=== PATIENT | female | born 1965 | race Caucasian/White ===

== ENCOUNTER 2020-04-19 21:33 | Observation (INO) | payer OTHER ==
[2020-04-19] MEDS ORDERED: NA CHLORIDE 0.9% 1,000 ML ONE (22:22)
[2020-04-19] MEDS ORDERED: ONDANSETRON 4 MG/2 ML VIAL ONE (22:29)
--- NOTE | 2020-04-19 22:44 | RAD REPORT ---
EXAM DESCRIPTION: Afsaneh Single View04/19/2020 10:38 pm CLINICAL HISTORY: cough COMPARISON: 2017 FINDINGS: The lungs appear clear of acute infiltrate. The heart is normal size IMPRESSION: No acute abnormalities displayed
[2020-04-19 22:47] LABS: Absolute Lymphocytes (CBC) 3.6 K/uL (0.7-4.9); Basophils % 0.6 % (0-1.3); Hematocrit 39.3 % (36.0-45.0); Lymphocytes % 19.9 % (15.3-44.8); MPV 7.9 fL (7.6-11.3); Protime INR 0.96; RBC Red Blood Cell Count 4.07 M/uL (3.86-4.86)
[2020-04-19 23:03] LABS: ALT/SGPT 25 U/L (12-78); AST/SGOT 18 U/L (15-37); Albumin 3.5 g/dL (3.4-5.0); Alkaline Phosphatase 52 U/L (45-117); BUN Blood Urea Nitrogen 13 mg/dL (7-18); Bicarbonate 27 mmol/L (21-32); Bilirubin Direct < 0.1 mg/dL (0-0.2); Bilirubin Total 0.2 mg/dL (0.2-1.0); Glucose Level 109 mg/dL (74-106); Magnesium 1.7 mg/dL (1.8-2.4); NT PRO-BNP 53 pg/mL (<125); Potassium 3.6 mmol/L (3.5-5.1); Sodium Level 144 mmol/L (136-145); Troponin (Emerg Dept Use Only) < 0.02 ng/mL (0.0-0.045)
[2020-04-19 23:52] LABS: Urine Blood NEGATIVE (NEG); Urine Glucose NEGATIVE (NEG); Urine Protein 1+ (NEG); Urine Specific Gravity 1.025 (1.005-1.030); Urine pH 5.5 (5.0-7.0)
--- NOTE | 2020-04-20 00:09 | EDPHYS ---
Physician Documentation [facility] Name: Mariela Hayes Age: 54 yrs Sex: Female : 1965 Arrival Date: 04/19/2020 Time: 21:51 Bed 13 Private MD: JESSICA Physician Mohan Benito HPI: 04/19 22:45 This 54 yrs old Female presents to ER via EMS with complaints of Dizziness, maribell Weakness. 22:45 The patient presents with dizziness, generalized weakness. Onset: The symptoms/episode maribell began/occurred just prior to arrival. Context: occurred at home. Modifying factors: The symptoms are alleviated by nothing, the symptoms are aggravated by nothing. Associated signs and symptoms: The patient has no apparent associated signs or symptoms. Severity of symptoms: At their worst the symptoms were mild moderate in the emergency department the symptoms are unchanged. Patient's baseline: Neuro: alert and fully oriented. The patient has not experienced similar symptoms in the past. 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 bb Historical: - Allergies: 22:00 Phenergan; bb - Home Meds: 22:00 Ambien 10 mg Oral tab 1 tab once daily [Active]; carvedilol 25 mg oral tab 1 tab 2 bb times per day [Active]; memantine 10 mg oral tab 1 tab 2 times per day [Active]; donepezil 10 mg oral tab 1 tab twice a day [Active]; duloxetine 60 mg oral cpDR 2 caps once daily [Active]; lisinopril 20 mg Oral tab 1 tab twice a day [Active]; hydrocodone-acetaminophen 10-325 mg Oral tab 1 tab three times a day [Active]; D3 [Active]; B12 [Active]; Melatonin Oral [Active]; Aspirin Oral [Active]; hydralazine 50 mg Oral tab 1 tab 2 times per day [Active]; - PMHx: 22:00 Hypertension; Chronic pain; Alzheimers; bb - PSHx: 22:00 Hernia repair; Tonsillectomy; nerve stimulator spinal cord x 2; foot; D\T\C; bb - Immunization history:: Adult Immunizations up to date. - Social history:: Smoking status: Patient reports the use of cigarette tobacco products, smokes one pack cigarettes per day. Patient/guardian denies using alcohol, street drugs. - Family history:: not pertinent. ROS: 22:45 Constitutional: Negative for fever, chills, and weight loss, Eyes: Negative for injury, maribell pain, redness, and discharge, ENT: Negative for injury, pain, and discharge, Neck: Negative for injury, pain, and swelling, Cardiovascular: Negative for chest pain, palpitations, and edema, Respiratory: Negative for shortness of breath, cough, wheezing, and pleuritic chest pain, Abdomen/GI: Negative for abdominal pain, nausea, vomiting, diarrhea, and constipation, Back: Negative for injury and pain, : Negative for injury, bleeding, discharge, and swelling, MS/Extremity: Negative for injury and deformity, Skin: Negative for injury, rash, and discoloration, Psych: Negative for depression, anxiety, suicide ideation, homicidal ideation, and hallucinations, Allergy/Immunology: Negative for hives, rash, and allergies, Endocrine: Negative for neck swelling, polydipsia, polyuria, polyphagia, and marked weight changes, Hematologic/Lymphatic: Negative for swollen nodes, abnormal bleeding, and unusual bruising. 22:45 Neuro: Positive for dizziness. Exam: 22:45 Constitutional: This is a well developed, well nourished patient who is awake, alert, maribell and in no acute distress. Head/Face: Normocephalic, atraumatic. Eyes: Pupils equal round and reactive to light, extra-ocular motions intact. Lids and lashes normal. Conjunctiva and sclera are non-icteric and not injected. Cornea within normal limits. Periorbital areas with no swelling, redness, or edema. ENT: Nares patent. No nasal discharge, no septal abnormalities noted. Tympanic membranes are normal and external auditory canals are clear. Oropharynx with no redness, swelling, or masses, exudates, or evidence of obstruction, uvula midline. Mucous membranes moist. Neck: Trachea midline, no thyromegaly or masses palpated, and no cervical lymphadenopathy. Supple, full range of motion without nuchal rigidity, or vertebral point tenderness. No Meningismus. Chest/axilla: Normal chest wall appearance and motion. Nontender with no deformity. No lesions are appreciated. Cardiovascular: Regular rate and rhythm with a normal S1 and S2. No gallops, murmurs, or rubs. Normal PMI, no JVD. No pulse deficits. Respiratory: Lungs have equal breath sounds bilaterally, clear to auscultation and percussion. No rales, rhonchi or wheezes noted. No increased work of breathing, no retractions or nasal flaring. Abdomen/GI: Soft, non-tender, with normal bowel sounds. No distension or tympany. No guarding or rebound. No evidence of tenderness throughout. Back: No spinal tenderness. No costovertebral tenderness. Full range of motion. Female : Normal external genitalia. Skin: Warm, dry with normal turgor. Normal color with no rashes, no lesions, and no evidence of cellulitis. MS/ Extremity: Pulses equal, no cyanosis. Neurovascular intact. Full, normal range of motion. Neuro: Awake and alert, GCS 15, oriented to person, place, time, and situation. Cranial nerves II-XII grossly intact. Motor strength 5/5 in all extremities. Sensory grossly intact. Cerebellar exam normal. Normal gait. Psych: Awake, alert, with orientation to person, place and time. Behavior, mood, and affect are within normal limits. 22:45 Musculoskeletal/extremity: Extremities: all appear grossly normal, with no appreciated pain with palpation, DVT Exam: No signs of deep vein thrombosis. no pain, no swelling, no tenderness, negative Homans' sign noted on exam, no appreciated bluish discoloration, no erythema, no increased warmth. 22:48 ECG was reviewed by the Attending Physician. maribell Vital Signs: 21:52 BP 159 / 84; Pulse 64; Resp 16 S; Pulse Ox 100% on R/A; Weight 95.25 kg (R); Height 5 bb ft. 4 in. (162.56 cm) (R); 23:07 BP 141 / 65; Pulse 64; Resp 17 S; Pulse Ox 98% on R/A; jd3 04/20 01:14 BP 144 / 71; Pulse 78; Resp 18; Pulse Ox 97% on R/A; wh 04/19 21:52 Body Mass Index 36.05 (95.25 kg, 162.56 cm) bb MDM: 04/19 21:59 Patient medically screened. maribell 22:47 Differential diagnosis: cardiac arrhythmia, CVA, generalized weakness, hypovolemia, maribell idiopathic dizziness, near-syncope, , TIA, vertigo. Data reviewed: vital signs, nurses notes, lab test result(s), EKG, radiologic studies, CT scan, plain films. Data interpreted: bus monitor: rate is 64 beats/min, rhythm is regular, Pulse oximetry: on room air is 100 %. Test interpretation: by ED physician or midlevel provider: ECG, plain radiologic studies. Counseling: I had a detailed discussion with the patient and/or guardian regarding: the historical points, exam findings, and any diagnostic results supporting the discharge/admit diagnosis, lab results, radiology results. 04/19 22:00 Order name: Basic Metabolic Panel; Complete Time: 23:35 [facility] 04/19 22:00 Order name: CBC with Diff; Complete Time: 23:35 [facility] 04/19 22:00 Order name: LFT's; Complete Time: 23:35 [facility] 04/19 22:00 Order name: Magnesium; Complete Time: 23:35 [facility] 04/19 22:00 Order name: NT PRO-BNP; Complete Time: 23:35 [facility] 04/19 22:00 Order name: PT-INR; Complete Time: 23:35 [facility] 04/19 22:00 Order name: Troponin (emerg Dept Use Only); Complete Time: 23:35 [facility] 04/19 23:39 Order name: COVID-19 [facility] 04/19 23:39 Order name: Influenza Screen (a \T\ B) [facility] 04/19 23:39 Order name: Blood Culture Adult (2) [facility] 04/19 23:39 Order name: Procalcitonin [facility] 04/19 23:39 Order name: [facility] 04/19 23:41 Order name: Urine Dipstick--Ancillary (enter results); Complete Time: 00:06 [facility] 04/19 23:41 Order name: Urine --Ancillary (enter results); Complete Time: 00:06 [facility] 04/19 22:00 Order name: XRAY Chest (1 view); Complete Time: 23:35 [facility] 04/19 22:00 Order name: EKG; Complete Time: 22:01 [facility] 04/19 22:00 Order name: Cardiac monitoring; Complete Time: 22:08 [facility] 04/19 22:00 Order name: EKG - Nurse/Tech; Complete Time: 22:15 [facility] 04/19 22:00 Order name: IV Saline Lock; Complete Time: 22:09 [facility] 04/19 22:00 Order name: Labs collected and sent; Complete Time: 22:37 [facility] 04/19 22:00 Order name: O2 Per Protocol; Complete Time: 22:08 [facility] 04/19 22:00 Order name: O2 Sat Monitoring; Complete Time: 22:08 [facility] 04/19 22:00 Order name: Urine Dipstick-Ancillary (obtain specimen); Complete Time: 22:37 [facility] 04/19 22:00 Order name: CT Head Brain wo Cont [facility] 04/19 23:43 Order name: Lactate [facility] 04/19 22:00 Order name: Urine Test (obtain specimen); Complete Time: 22:37 [facility] EC:48 Rate is 62 beats/min. Rhythm is regular. QRS [place] is Normal. MS interval is normal. QRS maribell interval is normal. QT interval is normal. No Q waves. T waves are Normal. No ST changes noted. Clinical impression: NSR w/ Non-specific ST/T Changes and No evidence of ischemia. Interpreted by me. Reviewed by me. Administered Medications: 22:15 Drug: NS 0.9% 1000 ml Route: IV; Rate: 1 bolus; Site: left antecubital; [facility] 04/20 01:12 Follow up: Response: No adverse reaction; IV Status: Completed infusion 04/19 22:36 Drug: Zofran (Ondansetron) 4 mg Route: IVP; Site: left antecubital; [facility] 23:30 Follow up: Response: No adverse reaction [facility] 04/20 01:13 Follow up: Response: No adverse reaction; Nausea is decreased 00:20 Drug: NS 0.9% 1000 ml Route: IV; Rate: 1 bolus; Site: left antecubital; 01:12 Follow up: Response: No adverse reaction; IV Status: Completed infusion 00:22 Drug: Rocephin 1 grams Route: IV; Rate: per protocol; Site: left upper arm; 01:12 Follow up: Response: No adverse reaction; IV Status: Completed infusion 00:24 Drug: Magnesium Sulfate 1 grams Route: IVPB; Infused Over: 1 hrs; Site: left upper arm; 01:12 Follow up: Response: No adverse reaction; IV Status: Completed infusion Disposition: 04/20/20 00:08 Hospitalization ordered by Ravi Guidry for Observation. Preliminary diagnosis are Dizziness and giddiness, Elevated white blood cell count, Syncope and collapse - near, Hypomagnesemia. - Bed requested for Telemetry/MedSurg (observation). - Status is Observation. wh - Condition is Fair. - Problem is new. - Symptoms have improved. Signatures: Dispatcher [employer] EDMohan Lee MD MD cha Ballard, Brenda, RN RN Michael Stanton, DIRECTOR GAME-C DIRECTOR GAME-Cla1 Corrina Hernandez RN RN cg Nixon Contreras Jonathon RN RN jd3 Corrections: (The following items were deleted from the chart) 00:14 00:08 Hospitalization Ordered by Alfredo Schmitz DO for Observation. Preliminary la1 diagnosis is Dizziness and giddiness; Elevated white blood cell count; Syncope and collapse - near; Hypomagnesemia. Bed requested for Telemetry/MedSurg (observation). Status is Observation. Condition is Fair. Problem is new. Symptoms have improved. maribell 00:53 00:14 04/20/2020 00:08 Hospitalization Ordered by Ravi Guidry MD for Observation. cg Preliminary diagnosis is Dizziness and giddiness; Elevated white blood cell count; Syncope and collapse - near; Hypomagnesemia. Bed requested for Telemetry/MedSurg (observation). Status is Observation. Condition is Fair. Problem is new. Symptoms have improved. la1 01:27 00:53 04/20/2020 00:08 Hospitalization Ordered by Ravi Guidry MD for Observation. wh Preliminary diagnosis is Dizziness and giddiness; Elevated white blood cell count; Syncope and collapse - near; Hypomagnesemia. Bed requested for Telemetry/MedSurg (observation). Status is Observation. Condition is Fair. Problem is new. Symptoms have improved. cg
--- NOTE | 2020-04-20 00:09 | ER ---
Nurse's Notes [facility] Name: Mariela Hayes Age: 54 yrs Sex: Female : 1965 Arrival Date: 04/19/2020 Time: 21:51 Bed 13 Private MD: Diagnosis: Dizziness and giddiness;Elevated white blood cell count;Syncope and collapse-near;Hypomagnesemia Presentation: 04/19 21:52 Chief complaint: EMS states: they were toned out for report of dizziness and weakness bb which started since approx 1999 tonight she "just does not feel right". Coronavirus screen: At this time, the client does not indicate any symptoms associated with coronavirus-19. Ebola Screen: No symptoms or risks identified at this time. 21:52 Method Of Arrival: EMS: [facility] bb 22:01 Initial Sepsis Screen: Does the patient meet any 2 criteria? No. Patient's initial bb sepsis screen is negative. Does the patient have a suspected source of infection? No. Patient's initial sepsis screen is negative. Risk Assessment: Do you want to hurt yourself or someone else? Patient reports no desire to harm self or others. Onset of symptoms was April 19, 2020. Care prior to arrival: Medication(s) given: Normal saline infusion, 500 mL, zofran 4 mg, IV initiated. 18 GA, in the left upper arm. 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 bb Historical: - Allergies: 22:00 Phenergan; bb - Home Meds: 22:00 Ambien 10 mg Oral tab 1 tab once daily [Active]; carvedilol 25 mg oral tab 1 tab 2 bb times per day [Active]; memantine 10 mg oral tab 1 tab 2 times per day [Active]; donepezil 10 mg oral tab 1 tab twice a day [Active]; duloxetine 60 mg oral cpDR 2 caps once daily [Active]; lisinopril 20 mg Oral tab 1 tab twice a day [Active]; hydrocodone-acetaminophen 10-325 mg Oral tab 1 tab three times a day [Active]; D3 [Active]; B12 [Active]; Melatonin Oral [Active]; Aspirin Oral [Active]; hydralazine 50 mg Oral tab 1 tab 2 times per day [Active]; - PMHx: 22:00 Hypertension; Chronic pain; Alzheimers; bb - PSHx: 22:00 Hernia repair; Tonsillectomy; nerve stimulator spinal cord x 2; foot; D\\T\\C; bb - Immunization history:: Adult Immunizations up to date. - Social history:: Smoking status: Patient reports the use of cigarette tobacco products, smokes one pack cigarettes per day. Patient/guardian denies using alcohol, street drugs. - Family history:: not pertinent. Screenin:21 Abuse screen: Denies threats or abuse. Nutritional screening: No deficits noted. jd3 Tuberculosis screening: No symptoms or risk factors identified. Fall Risk IV access (20 points). Ambulatory Aid- None/Bed Rest/Nurse Assist (0 pts). Gait- Normal/Bed Rest/Wheelchair (0 pts) Mental Status- Oriented to own ability (0 pts). Total Damon Fall Scale indicates No Risk (0-24 pts). Assessment: 22:20 General: Appears in no apparent distress. uncomfortable, Behavior is calm, cooperative, jd3 appropriate for age. Pain: Denies pain. Neuro: Level of Consciousness is awake, alert, obeys commands, Oriented to person, place, time, situation, Reports dizziness. Cardiovascular: Denies chest pain, Capillary refill < 3 seconds Patient's skin is warm and dry. Rhythm is regular. Respiratory: Airway is patent Respiratory effort is even, unlabored, Respiratory pattern is regular, symmetrical, Denies cough, shortness of breath. GI: No signs and/or symptoms were reported involving the gastrointestinal system. : No signs and/or symptoms were reported regarding the genitourinary system. EENT: No signs and/or symptoms were reported regarding the EENT system. Derm: Skin is intact, Skin is dry, Skin is normal, Skin temperature is warm. Musculoskeletal: Circulation, motion, and sensation intact. Range of motion: intact in all extremities. 04/20 00:00 Reassessment: Patient appears in no apparent distress at this time. Patient and/or wh family updated on plan of care and expected duration. Pain level reassessed. Patient is alert, oriented x 3, equal unlabored respirations, skin warm/dry/pink. 01:00 Reassessment: Patient appears in no apparent distress at this time. Patient and/or wh family updated on plan of care and expected duration. Pain level reassessed. Patient is alert, oriented x 3, equal unlabored respirations, skin warm/dry/pink. Vital Signs: 04/19 21:52 BP 159 / 84; Pulse 64; Resp 16 S; Pulse Ox 100% on R/A; Weight 95.25 kg (R); Height 5 bb ft. 4 in. (162.56 cm) (R); 23:07 BP 141 / 65; Pulse 64; Resp 17 S; Pulse Ox 98% on R/A; jd3 04/20 01:14 BP 144 / 71; Pulse 78; Resp 18; Pulse Ox 97% on R/A; wh 04/19 21:52 Body Mass Index 36.05 (95.25 kg, 162.56 cm) bb ED Course: 04/19 21:51 Patient arrived in ED. bb 21:59 Mohan Benito MD is Attending Physician. maribell 22:02 Triage completed. bb 22:02 Arm band placed on Patient placed in an exam room, on a stretcher, on cardiac rn, bb on pulse oximetry. EKG completed in triage. Results shown to MD. 22:08 Benjy Chung, RN is Primary Nurse. jd3 22:21 Patient has correct armband on for positive identification. Placed in gown. Bed in low jd3 position. Call light in reach. Side rails up X 1. quality assurance monitor body on. Pulse ox on. NIBP on. 22:21 Maintain EMS IV. Dressing intact. Good blood return noted. Site clean \\T\\ dry. Gauge \\T\\ kelsie 3 site: 18 G, left AC. 22:30 EKG done, by ED staff, reviewed by Mohan Benito MD. Inserted saline lock: 22 gauge in ds4 right wrist, using aseptic technique. Blood collected. 22:38 XRAY Chest (1 view) In Process Unspecified. EDMS 22:55 CT Head Brain wo Cont In Process Unspecified. EDMS 04/20 00:07 Alfredo Schmitz DO is Hospitalizing Provider. maribell 00:14 Ravi Guidry MD is Hospitalizing Provider. la1 01:13 No provider procedures requiring assistance completed. Patient admitted, IV remains in place. Administered Medications: 04/19 22:15 Drug: NS 0.9% 1000 ml Route: IV; Rate: 1 bolus; Site: left antecubital; j 04/20 01:12 Follow up: Response: No adverse reaction; IV Status: Completed infusion 04/19 22:36 Drug: Zofran (Ondansetron) 4 mg Route: IVP; Site: left antecubital; jd3 23:30 Follow up: Response: No adverse reaction [facility] 04/20 01:13 Follow up: Response: No adverse reaction; Nausea is decreased 00:20 Drug: NS 0.9% 1000 ml Route: IV; Rate: 1 bolus; Site: left antecubital; 01:12 Follow up: Response: No adverse reaction; IV Status: Completed infusion 00:22 Drug: Rocephin 1 grams Route: IV; Rate: per protocol; Site: left upper arm; 01:12 Follow up: Response: No adverse reaction; IV Status: Completed infusion 00:24 Drug: Magnesium Sulfate 1 grams Route: IVPB; Infused Over: 1 hrs; Site: left upper arm; 01:12 Follow up: Response: No adverse reaction; IV Status: Completed infusion Outcome: 00:08 Decision to Hospitalize by Provider. maribell 01:13 Admitted to Med/surg accompanied by tech, via stretcher, room 219, with chart, Report called to Devorah Ly RN 01:13 Condition: stable 01:13 Instructed on the need for admit. 01:27 Patient left the ED. Addendum: 04/24/2020 13:13 Addendum: COVID-19 Result: Negative result given to RN to notify pt. Notified pt of i w negative COVID 19 swab results. Pt advised that even with a negative test result they should remain in isolation until symptom free for 3 days without medication. Pt also advised to return to the ED for worsening symptoms. Signatures: Dispatcher [employer] EDVA Mohan Benito MD MD cha Ballard, Brenda, RN RN bb Williams, Irene, RN RN iw Swanson, Donovan ds4 Michael Kc, VOLTAGE REGULATOR ASSEMBLER-C VOLTAGE REGULATOR ASSEMBLER-Cla1 Nixon Contreras Benjy Chung RN RN jd3
[2020-04-20] MEDS ORDERED: CEFTRIAXONE/SWI 1gm 1 GM/10 ML SYR ONE (00:16)
[2020-04-20] MEDS ORDERED: NA CHLORIDE 0.9% 1,000 ML ONE (00:16)
[2020-04-20] MEDS ORDERED: MAGNESIUM SULFATE 1 gm IVPB 1 GM/100 ML BAG IV ONE (00:28)
--- NOTE | 2020-04-20 01:05 | P.HP ---
Certification for Inpatient Patient admitted to: Observation With expected LOS: <2 Midnights Patient will require the following post-hospital care: None Practitioner: I am a practitioner with admitting privileges, knowledge of patient current condition, hospital course, and medical plan of care. Services: Services provided to patient in accordance with Admission requirements found in Title 42 Section 412.3 of the Code of Federal Regulations <Michael Kc - Last Filed: 04/20/20 01:00> Patient History Date of Service: 04/20/20 Primary Care Provider: Dr. Zayas Reason for admission: Near syncope History of Present Illness: 54-year-old female with history of hypertension, Alzheimer's/dementia, depression with anxiety, RSD presents emergency department for near syncope. Patient reports that she has at home attending her son's birthday constitution party while sitting in chair when she began to feel like she is going to pass out. Patient reports Wellness stated position she began to experience weakness, nausea, diaphoresis and unpleasant sensation in her chest which she describes as possibly like palpitations. Patient recover from this event and well at home checked her heart rate with a pulse oximeter which was shown to be around 50-80. Patient had a 2nd episode of near syncope at home when she vomited. Patient checked her blood pressure and noted that his elevated at around 1:50 a.m. to 160/120. Patient then called EMS. Patient was brought to the emergency department for further evaluation. During her workup in the emergency department patient was found to have leukocytosis with a white blood cell count of 18.3 and hypomagnesemia with a magnesium of 1.7. Patient reports that her white blood cell count is typically elevated somewhere between 12 and 15. ED provider wishes to admit patient for further evaluation and management. When I saw the patient in the emergency department she is awake, alert, oriented x3. Patient did have CT scan of the head which was negative. Chest x-ray unremarkable. Patient will be admitted under observation. - Past Medical/Surgical History Diabetic: No -: Hypertension -: Alzheimer's/dementia -: RSD -: Tobacco abuse -: Spinal cord stimulator -: Tonsillectomy -: Hernia repair -: Foot surgery Psychosocial/ Personal History: Patient currently lives at home with family. - Family History Family History: Reviewed- Non-Contributory - Social History Smoking Status: Current every day smoker Alcohol use: No CD- Drugs: No Caffeine use: No Place of Residence: Home <Michael Kc - Last Filed: 04/20/20 01:00> Date of Service: 04/20/20 <Ravi Guidry - Last Filed: 04/20/20 20:17> Allergies promethazine HCl [From Phenergan] Allergy (Intermediate, Verified 04/20/20 01:41) Unknown Home Medications: Carvedilol [Coreg] 25 mg PO BID 04/20/20 Coconut Oil 1,000 mg PO DAILY 04/20/20 Donepezil HCl [Aricept] 10 mg PO BID 04/20/20 Duloxetine HCl [Cymbalta] 60 mg PO BEDTIME 04/20/20 Folic Acid/Multivit,Iron,[place] [One Daily Complete Tablet] 1 tab PO DAILY 04/20/20 Hydralazine HCl [Apresoline] 50 mg PO BID 04/20/20 Hydrocodone 10/APAP 325 [Roberts 10/325*] 1 tab PO Q6HR PRN 04/20/20 Lisinopril [Zestril] 20 mg PO BID 04/20/20 Melatonin 10 mg PO BEDTIME 04/20/20 Memantine HCl [Namenda*] 10 mg PO BID 04/20/20 Zolpidem Tartrate [Ambien*] 10 mg PO BEDTIME 04/20/20 Review of Systems 10-point ROS is otherwise unremarkable Cardiovascular: Palpitations, Light Headedness, Other (Diaphoresis) Gastrointestinal: Vomiting <Michael Kc - Last Filed: 04/20/20 01:00> Physical Examination - Physical Exam General: Alert, In no apparent distress HEENT: Atraumatic, PERRLA, Mucous membr. moist/pink Neck: Supple, 2+ carotid pulse no bruit, No LAD Respiratory: Clear to auscultation bilaterally, Normal air movement Cardiovascular: Regular rate/rhythm, Normal S1 S2 Gastrointestinal: Normal bowel sounds, No tenderness Musculoskeletal: No tenderness Integumentary: No rashes Neurological: Normal gait, Normal speech, Normal strength at 5/5 x4 extr, Normal tone, Normal affect - Studies Laboratory Data (last 24 hrs) 04/19/20 22:30: PT 11.3, INR 0.96 04/19/20 22:30: WBC 18.3 H, Hgb 13.2, Hct 39.3, Plt Count 314 04/19/20 22:30: Sodium 144, Potassium 3.6, BUN 13, Creatinine 0.72, Glucose 109 H, Magnesium 1.7 L, Total Bilirubin 0.2, AST 18, ALT 25, Alkaline Phosphatase 52 Microbiology Data (last 24 hrs): 04/19/20 23:49 Nasopharnyx Influenza Type A Antigen Screen - Final 04/19/20 23:49 Nasopharnyx Influenza Type B Antigen Screen - Final <Michael Kc - Last Filed: 04/20/20 01:00> - Studies Laboratory Data (last 24 hrs) 04/19/20 22:30: PT 11.3, INR 0.96 04/19/20 22:30: WBC 18.3 H, Hgb 13.2, Hct 39.3, Plt Count 314 04/19/20 22:30: Sodium 144, Potassium 3.6, BUN 13, Creatinine 0.72, Glucose 109 H, Magnesium 1.7 L, Total Bilirubin 0.2, AST 18, ALT 25, Alkaline Phosphatase 52 Microbiology Data (last 24 hrs): 04/19/20 23:49 Nasopharnyx Influenza Type A Antigen Screen - Final 04/19/20 23:49 Nasopharnyx Influenza Type B Antigen Screen - Final <Ravi Guidry - Last Filed: 04/20/20 20:17> Assessment and Plan - Plan Assessment Near syncope Leukocytosis Hypertension RSD and chronic pain Depression with anxiety Insomnia Plan Near syncope: Patient remained on telemetry throughout hospitalization. Will obtain orthostatics vital signs. CT head and EKG unremarkable. Will trend troponins. Patient without any focal neurological deficits. Unable to obtain echocardiogram at this time as services unavailable. The patient back at baseline mental status at this time. Likely discharge tomorrow morning. DVT prophylaxis Lovenox 40 mg subcutaneous once daily. Leukocytosis: Pro calcitonin negative, patient states baseline leukocytosis around 12-15. Repeat with morning labs. No source of infection identified. Hold off on antibiotics at this time, cultures have been obtained. Hypertension: Home medications have been continued, hold parameters in place. RSD and chronic pain: Continue home medication Roberts. Depression with anxiety: Home medications have been continued. Insomnia: Home medications have been continued. Discharge Plan: Home Plan to discharge in: 24 Hours - Advance Directives Does patient have a Living Will: No Does patient have a Durable POA for Healthcare: No - Code Status/Comfort Care Code Status Assessed: Yes (Patient is full code) Critical Care: No Time Spent Managing Pts Care (In Minutes): 55 <Michael Kc - Last Filed: 04/20/20 01:00> Physician Review Additional Text: Plan of care discussed with Michael Kc, I agree with the plan as noted above. In addition: Patient's workup was unremarkable. She remained in sinus rhythm on telemetry. Her CT brain was negative for acute intracranial process. Orthostatic vitals were negative. He leukocytosis on admission decreased (18.3 -> 14.5) which patient reports is her baseline. She had no evidence of acute infectious process. Her vitals remains stable. She felt back to her normal self and requested to be discharged. Due to her weekend admission, an echocardiogram was unable to be performed. It was recommended that she complete this as outpatient if her symptoms persist. She will follow up with her PCP within 1 week. <Ravi Guidry - Last Filed: 04/20/20 20:17>
[2020-04-20] MEDS ORDERED: ACETAMINOPHEN 500 MG TAB PO PRN (01:31)
[2020-04-20] MEDS ORDERED: MELATONIN 5 MG TABLET PO PRN (01:31)
[2020-04-20] MEDS ORDERED: ZOLPIDEM TARTRATE 10 MG TABLET PO PRN (01:31)
[2020-04-20] MEDS ORDERED: ONDANSETRON 4 MG/2 ML VIAL IV PRN (01:31)
[2020-04-20 01:47] VITALS: O2SAT 97
[2020-04-20] MEDS: NA CHLORIDE 0.9% 1,000 ML IV SCH ×2 (02:10→11:31)
[2020-04-20 02:13] VITALS: BMI 37.1
[2020-04-20 06:02] LABS: Absolute Lymphocytes (CBC) 4.6 K/uL (0.7-4.9); Basophils % 0.5 % (0-1.3); Hematocrit 37.5 % (36.0-45.0); Lymphocytes % 31.8 % (15.3-44.8); MPV 8.2 fL (7.6-11.3); RBC Red Blood Cell Count 3.95 M/uL (3.86-4.86)
[2020-04-20 06:26] LABS: BUN Blood Urea Nitrogen 10 mg/dL (7-18); Bicarbonate 28 mmol/L (21-32); Glucose Level 96 mg/dL (74-106); Potassium 3.4 mmol/L (3.5-5.1); Sodium Level 144 mmol/L (136-145); Thyroid Stimulating Hormone 0.617 uIU/mL (0.360-3.740)
[2020-04-20] MEDS ORDERED: carvediloL 25 MG TAB PO SCH (08:00)
--- NOTE | 2020-04-20 08:20 | EKG ---
Test Date: 2020-04-19 Test Time: 22:03:15 Ebay Reseller: RAYMUNDO MEASUREMENT RESULTS: Intervals: Rate: 62 VT: 182 QRSD: 96 QT: 406 QTc: 412 Eight[place]: P: 71 VT: 182 QRS: 56 T: 45 INTERPRETIVE STATEMENTS: Normal sinus rhythm Normal ECG Compared to ECG 04/01/2017 09:51:09 No significant changes Electronically Signed On 04-20-20 08:19:16 CDT by Paras Dowling
[2020-04-20] MEDS: HYDROCODONE/APAP 7.5/325 MG TAB PO PRN ×2 (08:32→14:19)
[2020-04-20] MEDS ORDERED: DONEPEZIL HCL 5 MG TAB PO SCH (09:00)
[2020-04-20] MEDS ORDERED: ENOXAPARIN 40 MG/0.4 ML SQ SCH (09:00)
[2020-04-20] MEDS ORDERED: HYDRALAZINE HCL 25 MG TABLET PO SCH (09:00)
[2020-04-20] MEDS ORDERED: MEMANTINE HCL 10 MG TABLET PO SCH (09:00)
[2020-04-20] MEDS ORDERED: POTASSIUM CL SA 10 MEQ TAB PO ONE (09:00)
[2020-04-20] MEDS ORDERED: lisinopriL 20 MG TAB PO SCH (09:00)
[2020-04-20] MEDS ORDERED: KETOROLAC 30 MG/ML INJ IV ONE (10:48)
[2020-04-20 13:30] VITALS: BP 167/74; TEMP 97.9
[2020-04-20] MEDS ORDERED: DULOXETINE 30 MG CAP PO SCH (21:00)
--- NOTE | 2020-04-23 12:38 | RAD REPORT ---
EXAM DESCRIPTION: CT - Head Brain Wo Cont - 04/20/2020 6:51 am CLINICAL HISTORY: DIZZINESS COMPARISON: None available TECHNIQUE: Axial CT of the head obtained from the skull apex to the skull base without contrast. FINDINGS: No acute intracranial hemorrhage identified. No mass, mass effect, shift of the midline, a bnormal extra-axial fluid collection or CT evidence of acute ischemic change identified. The ventricu lar system and sulcal spaces are not enlarged. Scattered areas of hypodensity throughout the suprat entorial white matter are nonspecific and may be related to chronic small vessel ischemic change. Mild mucosal thickening of the paranasal sinuses. Mastoid air cells are well aerated. No skull fractu re identified. Visualized orbits and globes are unremarkable. Atherosclerotic calcification of the in tracranial internal carotid arteries. IMPRESSION: 1. No acute intracranial abnormality by CT criteria. This exam was performed according to our departmental dose-optimization program, which includes autom ated exposure control, adjustment of the mA and/or kV according to patient size and/or use of iterati ve reconstruction technique. Electronically signed by: Prince Wilson 04/19/2020 11:08 PM CDT Due to temporary technical issues with the PACS/Fluency reporting system, reports are being signed by the in house radiologist without review as a courtesy to ensure prompt reporting. The interpreting r adiologist is fully responsible for the content of the report.
--- OUTSIDE RECORDS SUMMARY | 2020-04-24 21:55 | XMS REPORT | Continuity of Care Document ---
:1965 Author Organization [facility] t Address [address] [place] [address] Care Team Providers Name Role Phone Jaquelin Fagan Primary Care Physician Cornelius Rodriguez MD Attending Clinician Jonatan Crain MD Attending Clinician Doctor Unassigned, Name Attending Clinician Unavailable Shad FONTAINE Attending Clinician Efe CORDON Attending Clinician Amadou MCFADDEN Attending Clinician CLAUDIA Attending Clinician Unavailable CLAUDIA Admitting Clinician Unavailable Problems Condition Condition Condition Status Onset Resolution Last Treating Co mments Source Name Details Category Date Date Treatment Clinician Date Chronic Chronic Disease Active [facility] Center Allergies, Adverse Reactions, Alerts Allergy Allergy Status Severity Reaction(s) Onset Inactive Treating Comm ents Source Name Type Date Date Clinician Adhesive Propensi Active Other (See Blisters [facility] to Comments) 04-14 [facility] - adverse 00:[facility]: [facility] reaction 00 Center s Asif Floydi Active Hallucina [facility] ty to 04-14 [facility]ol [facility] - adverse 00:[facility]: Medical reaction 00 [facility] Social History Social Habit Start Date Stop Date Quantity Comments Source Sex Assigned At [facility] Cigarettes smoked 2017-04-16 2017-04-16 [facility] - current (pack per 00:00:00 00:00:00 Medical Center day) - Reported Cigarette pack-years 2017-04-16 2017-04-16 [facility] - 00:00:00 00:00:00 [facility] Smoking Status Start Date Stop Date Source Current every day smoker 2017-04-16 00:00:00 [facility] Medications Ordered Filled Start Stop Current Ordering Indication Dosage Frequency Signature Comments Components Source Medication Medication Date Date Medication? Clinician (SIG) Name Name sulfamethox 2016-07 Yes Take one [facility] azole-trime 0-03 tablet by [facility] - thoprim 00:00: mouth Medical (BACTRIM 00 every 12 Center DS) 800-160 hours for mg per 10 days. tablet carvedilol Yes 25mg Take [address] (COREG) 25 04-14 by mouth 2 [facility] - MG tablet 11:40: (two) Medical 28 times Center daily with breakfast and dinner. lisinopril Yes 20mg Q.5D Take [address] (PRINIVIL,Z 04-14 by mouth 2 Vy kes - ESTRIL) 20 11:40: (two) Medica l MG tablet 28 times Center daily. DULoxetine Yes 60mg Q.5D Take [address] [facility] (CYMBALTA) 04-14 by mouth 2 [facility] - 60 MG 11:40: (two) Medical capsule 28 times Center daily. donepezil 2016- Yes 5mg QD Take [address] [facility] (ARICEPT) 5 04-14 by mouth [facility] - MG tablet 11:40: nightly. Medi manuel 28 Center zolpidem Yes 10mg Take [address] [facility] (AMBIEN) 10 04-14 by mouth Luke s - mg tablet 11:40: every Medical 28 night as Center needed for Insomnia. HYDROcodone Yes 10mg Take [address] [facility] bitartrate 9-27 by mouth [facility] - (ZOHYDRO 11:40: every 12 Medic al ER) 10 mg 28 (twelve) Center CR12 hours. oxyCODONE-a 2017-0 Yes 1{tbl} Take [address] cetaminophe 9-27 tablet by [facility] - n 11:40: mouth Medical (PERCOCET) 28 every 4 Center 10-325 mg (four) per tablet hours as needed for Pain. Procedures This patient has no known procedures. Encounters Start End Encounter Admission Attending Care Care Encounter Source Date/Time Date/Time Type Type Clinicians Facility Department ID 2020-02-16 2020-02-[address] [facility] [id number] 00:00:00 00:00:00 Kevin Gracia [id number] [facility] [id number] Professio [phone] [address] 2020-01-29 2020-01-[address] [facility] [id number] 00:00:00 00:00:00 Kvein Gracia [id number] [facility] [id number] Professio [phone] [address] 2020-01-17 2020-01-17 Telephone [facility] [id number] 00:00:00 00:00:00 [employer] [id number] [place] [id number] Professio [phone] [place] [address] [address] 2020-01-12 2020-01-[address] [facility] [id number] 00:00:00 00:00:00 Kevin Gracia [id number] [facility] [id number] Professio [phone] [address] 2020-01-12 2020-01-12 Orders Doctor HAINES [id number] 00:00:00 00:00:00 Only Unassigned, MAYRA [id number] [place] [facility] [id number] 2020-01-10 2020-01-10 Telephone Shad [facility] [id number] 00:00:00 00:00:00 [facility] [id number] [place] [id number] Professio [phone] [place] [address] [address] 2020-01-09 2020-01-09 Telephone Jennifer [facility] [id number] 00:00:00 00:00:00 Kevin [facility] [id number] Cornelius Gracia [id number] Professio [phone] [place] [address] [address] 2020-01-01 2020-01-01 Office Jennifer [facility] [id number] 13:07:51 13:27:02 Visit Kevin Gracia [id number] Cornelius [place] [id number] Professio [phone] [address] 2019-03-10 2019-03-10 Office Efe [facility] [id number] 07:59:20 09:00:22 Visit Jim Gracia [id number] [place] [id number] Professio [phone] 2019-03-10 2019-03-10 Prep For Amadou [facility] [id number] 00:00:00 00:00:00 Surgery Emily Gracia [id number] [place] [id number] Professio [phone] Results Test Description Test Time Test Comments Results Result [facility] e Comments XR Fluoroscopy in 2018-03-15 Patient: ERONBAYLEEPETRA, Imaging per Hour 11:41:01 ROLAN Date/Time03/15/2018 10:41 CDTReason for Examneurostimulator spineReportEXAM: FLUOROSCOPIC GUIDANCECLINICAL HISTORY: Back painTECHNIQUE: Fluoroscopic guidance was provided for neurostimulator device placement.FINDINGS:Fluor oscopic guidance was provided for neurostimulator device placement.Fluoroscopy time: Less than 5 minutesImage number: 1IMPRESSION:1. Fluoroscopic guidance was provided for neurostimulator device placement.2. Please see dedicated surgical report for further details.LOCATION: R16 Final Dictated by: MD Raul, Digna CDictated DT/TM: 03/15/2018 11:40 amSigned by: MD Carter Melanie CSigned (Electronic Signature): 03/15/2018 11:41 am [employer]B CULTURE + SMEAR 2017-06-02 14:52:00 Test Item Value Reference Range Interpretation Comme nts CULTURE (BEAKER) (test code = 1095) No acid-fast bacilli isolated i n 42 days AFB SMEAR (BEAKER) (test code = 994) No acid fast bacilli seen FUNGUS CULTURE + [id number] 12:30:00 Test Item Value Reference Range Interpretation Comments CULTURE (BEAKER) (test No fungus isolated in code = 1095) 28 days FUNGUS SMEAR (BEAKER) No fungi seen (test code = 1406) ANAEROBIC [id number] 16:38:00 Test Item Value Reference Range Interpretation Comments CULTURE (BEAKER) (test No anaerobes isolated code = 1095) SURGICALLY OBTAINED CULTURE + GRAM [id number] 11:01:00 Test Item Value Reference Range Interpretation Comments CULTURE (BEAKER) (test code No growth = 1095) GRAM STAIN RESULT (BEAKER) <1+ WBCs (test code = 1123) GRAM STAIN RESULT (BEAKER) No organisms seen (test code = 99187) SPIN/CONCENTRATION [id number] 12:26:00 Test Item Value Reference Range Interpretation Comments CONCENTRATION CHARGED (BEAKER) (test Done code = 2657)
--- OUTSIDE RECORDS SUMMARY | 2020-04-24 21:55 | XMS REPORT | Clinical Summary ---
:1965 Author Organization [facility] Address [address] [place] [address] Care Team Providers Name Role Phone Jaquelin Fagan Primary Care Provider Allergies Active Allergy Reactions Severity Noted Date Comments Adhesive Other (See Comments) 04/14/2017 Blister s Promethazine 04/14/2017 Hallucinations Medications Medication Sig Dispensed Refills Start Date End Date Status carvedilol (COREG) 25 Take 25 mg by mouth 0 Active MG tablet 2 (two) times daily with breakfast and dinner. lisinopril Take 20 mg by mouth 0 Active (PRINIVIL,ZESTRIL) 20 2 (two) times MG tablet daily. DULoxetine (CYMBALTA) Take 60 mg by mouth 0 Active 60 MG capsule 2 (two) times daily. donepezil (ARICEPT) 5 Take 5 mg by mouth 0 Active MG tablet nightly. zolpidem (AMBIEN) 10 Take 10 mg by mouth 0 Active mg tablet every night as needed for Insomnia. HYDROcodone Take 10 mg by mouth 0 Active bitartrate (ZOHYDRO every 12 (twelve) ER) 10 mg CR12 hours. oxyCODONE-acetaminoph Take 1 tablet by 0 Active en (PERCOCET) 10-325 mouth every 4 mg per tablet (four) hours as needed for Pain. sulfamethoxazole-trim Take one tablet by 20 tablet 0 7 Active ethoprim (BACTRIM DS) mouth every 12 800-160 mg per tablet hours for 10 days. Active Problems Problem Noted Date Chronic pain disorder 04/16/2017 Social History Tobacco Use Types Packs/Day Years Used Date Current Every Day Smoker 1 15 Smokeless Tobacco: Never Used Tobacco Cessation: Ready to Quit: Yes; C ounseling Given: Yes Alcohol Use Drinks/Week oz/Week Comments No Sex Assigned at Date Recorded Not on file Job Start Date Occupation Industry Not on file Not on file Not on file Travel History Travel Start Travel End No recent travel history available. Last Filed Vital Signs Not on file Plan of Treatment Not on file Results Not on fileafter 04/24/2019 Insurance Payer Benefit Plan / Group Subscriber ID Type Phone A ddress [employer] - [employer] CARE [employer] HMO POS QPOS xxxxxxxxxx HMO/POS [address] [place] (Home) [address] [place] [address] Advance Directives For more information, please contact:[place] [id number] [place], [place] [phone] Code Status Date Activated Date Inactivated Comments Full Code 04/16/2017 6:49 AM 04/16/2017 5:31 PM This code status was determined by: Patient
--- OUTSIDE RECORDS SUMMARY | 2020-04-24 21:56 | XMS REPORT | Summary of Care ---
:1965 Author Organization [facility] Address [address] [place] [address] Care Team Providers Name Role Phone Shad, MINAL Primary Care Provider Reason for Visit Reason Comments Assessment Encounter Details Date Type Department Care Team Description 01/29/2020 Telephone [facility] Pediatric and Kevin Box MD Assessment Adult Primary Care- [address] [place] [address] [place] [address], [phone] [address] [place] [address] Allergies Active Allergy Reactions Severity Noted Date Comments Meperidine Hcl Unknown - See comments High 03/27/2019 SEV ERE N/V AFTER HERNIA SURGERY R/T DEM BANDAR PER PT STATEMENT Promethazine Hallucinations documented as of this encounter (statuses as of 01/30/2020) Medications Medication Sig Dispensed Refills Start Date End Date Status memantine 10 mg Take 10 mg by 0 Active tablet mouth daily. donepezil (ARICEPT) Take 10 mg by 0 Active 10 mg tablet mouth 2 (two) times daily. morphine ER 15 mg 12 Take 15 mg by 0 Active hr tablet mouth daily. HYDROcodone-acetamin hydrocodone 10 mg-acetaminophen 325 mg tablet 0 Active ophen 10-325 mg Take 1 tablet every 6 hours by oral route as needed for 30 days. tablet vitamin C with oren Take 1,000 mg by 0 Active hips (VITAMIN C) mouth daily. 1,000 mg tablet vitamin B-12 Take 500 mcg by 0 A ctive (VITAMIN B-12) 500 mouth daily. mcg tablet nejzhddl-zuxpluzck-q Place 3 Drops in 10 mL 0 11/27/2019 Active ydrocortisone otic left ear 4 (four) solutionIndications: times daily. Other infective acute otitis externa of left ear aspirin E.C. 325 mg Take 325 mg by 0 Active EC tablet mouth daily. zolpidem (AMBIEN) 10 Take 1 tablet by 90 tablet 1 01/01/2020 Active mg mouth at bedtime. tabletIndications: Insomnia, unspecified type lisinopril 20 mg Take 1 tablet by 180 tablet 3 01/01/2020 Active tabletIndications: mouth 2 (two) Essential times daily. hypertension hydrALAZINE 50 mg Take 1 tablet by 180 tablet 3 01/01/2020 Active tabletIndications: mouth 2 (two) Essential times daily. hypertension DULoxetine 60 mg Take 1 capsule by 180 capsule 3 01/01/2020 Active capsuleIndications: mouth 2 (two) Neuropathy times daily. cloNIDine 0.2 mg Take 1 tablet by 270 tablet 3 01/01/2020 Active tabletIndications: mouth 3 (three) Essential times daily. hypertension carvediloL 25 mg Take 1 tablet by 180 tablet 3 01/01/2020 Active tabletIndications: mouth 2 (two) Essential times daily with hypertension meals. ondansetron 4 mg Take 1 tablet by 20 tablet 5 01/10/2020 Active tabletIndications: mouth every 8 Nausea (eight) hours as needed for Nausea and Vomiting (N/V). documented as of this encounter (statuses as of 01/30/2020) Active Problems Problem Noted Date Endometrial polyp 04/05/2019 Overview: 03/31/19 - hysteroscopic polypectomy. His tology revealed benign endocervical tissue and a benign polyp Obesity (BMI 30-39.9) 03/10/2019 Postmenopausal bleeding 03/10/2019 Overview: 03/15/19 - A pelvic US revealed a uterus measuring 6.5 x 4.6 x 4 cm, an ES of 7.6 mm, a number of small fibroids, the largest measures 2.3 cm. Ovaries are not well-visualized. No adnexal masses seen. documented as of this encounter (statuses as of 01/30/2020) Immunizations Name Administration Dates Next Due Influenza Virus Vaccine Quad .5 mL IM 6+ MO 09/04/2019 TDAP (ADACEL) VACCINE 09/04/2019 documented as of this encounter Social History Tobacco Use Types Packs/Day Years Used Date Current Every Day Smoker Cigarettes 0.5 20 Smokeless Tobacco: Never Used Alcohol Use Drinks/Week oz/Week Comments Never Alcohol Habits Answer Date Recorded How often do you have a drink containing alcohol? Never 03/10/2019 How many drinks containing alcohol do you have on a typical Not asked day when you are drinking? How often do you have six or more drinks on one occasion? No t asked Sex Assigned at Date Recorded Not on file Job Start Date Occupation Industry Not on file Not on file Not on file Travel History Travel Start Travel End No recent travel history available. COVID-19 Exposure Response Date Recorded In the last month, have you been in contact with No / Unsure 01/01/2020 1:06 PM CDT someone who was confirmed or suspected to have Coronavirus / COVID-19? documented as of this encounter Last Filed Vital Signs Not on filedocumented in this encounter Plan of Treatment Date Type Specialty Care Team Description 07/01/2020 Office Visit Family Medicine Kevin Rodriguez MD [address] [place] [address] [phone] Health Maintenance Due Date Last Done Comments PNEUMOCOCCAL 0-64 YEARS COMBINED 1972 SERIES (1 of 1 - PPSV23) COLONOSCOPY 2016 Breast Cancer Screening 03/15/2020 03/15/2019 (MAMMOGRAM) INFLUENZA VACCINE (#1) 2020 09/04/2019 Depression Screening 09/04/2020 09/04/2019 Zoster Recombinant Vaccine 09/04/2020 Postp oned from 2016 (SHINGRIX) (1 of 2) (Refused) PAP SMEAR 03/10/2022 03/10/2019 DTaP,Tdap,and Td Vaccines (2 - 09/04/2029 09/04/2019 Td) documented as of this encounter Results Not on filedocumented in this encounter Insurance Payer Benefit Plan / Subscriber ID Effective Dates Phone Addre ss Type Group MEDICARE MEDICARE PART xxxxxxxxxxx 2017-Fay [phone] [address] Medicare [place] [address] [id number] [place] [id number] documented as of this encounter
--- OUTSIDE RECORDS SUMMARY | 2020-04-24 21:56 | XMS REPORT | Summary of Care ---
:1965 Author Organization [facility] - [facility] Address [address] [place] [address] Care Team Providers Name Role Phone Shad MINAL Primary Care Provider Encounter Details Date Type Department Care Team Description 01/12/2020 Orders Only [facility] Doctor Unassigned, No [address] [facility] [place] [address] [address] [place] [address] Allergies Active Allergy Reactions Severity Noted Date Comments Meperidine Hcl Unknown - See comments High 03/27/2019 SEV ERE N/V AFTER HERNIA SURGERY R/T DEM BANDAR PER PT STATEMENT Promethazine Hallucinations documented as of this encounter (statuses as of 02/13/2020) Medications Medication Sig Dispensed Refills Start Date [...] (VITAMIN B-12) 500 mouth daily. mcg tablet cjjexmxw-urqqzdwuh-q Place 3 Drops in 10 mL 0 [...] as of this encounter (statuses as of 02/13/2020) Active Problems Problem Noted Date Endometrial polyp [...] as of this encounter (statuses as of 02/13/2020) Immunizations Name Administration Dates Next Due Influenza [...] Office Visit Family Medicine Kevin Rodriguez MD [address] [place] [phone] Health Maintenance Due Date Last Done [...] 09/04/2019 Td) documented as of this encounter Procedures Procedure Name Priority Date/Time Associated Diagnosis Comme nts INSURANCE CORRESPONDENCE Routine 01/12/2020 12:01 AM CDT documented in this encounter Results Not on filedocumented in this encounter Insurance Payer Benefit Plan / Subscriber ID Effective Dates Phone Addre ss Type Group MEDICARE MEDICARE PART xxxxxxxxxxx 2017-Fay [phone] [address] Medicare [place] [address] [id number] [place] [id number] documented as of this encounter
--- OUTSIDE RECORDS SUMMARY | 2020-04-24 21:56 | XMS REPORT | Summary of Care ---
:1965 Author Organization [facility] Address [address] [place] [id number] Care Team Providers Name Role Phone MINAL Kulkarni Primary Care Provider Reason for Visit Reason Comments Rx Concern/Question Encounter Details Date Type Department Care Team Description 02/16/2020 Telephone [facility] Pediatric Kevin Rodriguez Rx C oncern/Question and Adult Primary Care- MD Cornelius [address] [place] [place] [address], [address] [address] [place] [address] [phone] Allergies Active Allergy Reactions Severity Noted Date Comments Meperidine Hcl Unknown - See comments High 03/27/2019 SEV ERE N/V AFTER HERNIA SURGERY R/T DEM BANDAR PER PT STATEMENT Promethazine Hallucinations documented as of this encounter (statuses as of 02/16/2020) Medications Medication Sig Dispensed Refills Start Date [...] (VITAMIN B-12) 500 mouth daily. mcg tablet rgqgzndh-crvjobtxp-d Place 3 Drops in 10 mL 0 [...] as of this encounter (statuses as of 02/16/2020) Active Problems Problem Noted Date Endometrial polyp [...] as of this encounter (statuses as of 02/16/2020) Immunizations Name Administration Dates Next Due Influenza [...] Travel End No recent travel history available. documented as of this encounter Last Filed Vital Signs Not on filedocumented in this encounter Plan of Treatment Date Type Specialty Care Team Description 07/01/2020 Office Visit Family Medicine Kevin Rodriguez MD [address] [place] [address] [phone] Health Maintenance Due Date Last Done [...] Type Group MEDICARE MEDICARE PART xxxxxxxxxxx 2017-Fay [phone] [address] Medicare [place] B [place] [address] [id number] [place] W[place] [id number] documented as of this encounter
== END 2020-04-20 15:52 | disposition home or self-care (01) ==
LOC: ER 21:33 → ERHOLD 04-20 00:52 → 2ND 04-20 01:15
PROVIDERS: ADMIT Hospitalist; ATTEND Hospitalist
DX: R55 Syncope and collapse (principal); I10 Essential (primary) hypertension; G30.9 Alzheimer's disease, unspecified; F02.80 Dementia in other diseases classified elsewhere, unspecified severity, without behavioral disturbance, psychotic disturbance, mood disturbance, and anxiety; Z20.828 Contact with and (suspected) exposure to other viral communicable diseases; F41.8 Other specified anxiety disorders; G90.50 Complex regional pain syndrome I, unspecified; E83.42 Hypomagnesemia; Z79.891 Long term (current) use of opiate analgesic; G47.00 Insomnia, unspecified; D72.829 Elevated white blood cell count, unspecified; F17.210 Nicotine dependence, cigarettes, uncomplicated
CPT/HCPCS: 96365; 96361; 93005; 87040 ×2; 85025 ×2; 80048 ×2; 36415; 83735 ×2; 81025; 85610; 80076; 83605; 84443; 81003; 84484 ×3; 84439; 84145; 83880; 87804 ×2; 70450; 71045; 96375; 99285; U0002; J1650; J3475; J0696; J7030 ×3; J2405; G0378 ×2

== ENCOUNTER 2021-12-09 08:39 | Emergency (ER) | payer OTHER ==
--- OUTSIDE RECORDS SUMMARY | 2021-12-09 08:42 | XMS REPORT | Continuity of Care Document ---
:1965 Author Organization [facility] t Address [address] [place] [place] [address] Care Team Providers Name Role Phone Cornelius Rodriguez MD Primary Care Physician Cornelius Rodriguez MD Attending Clinician CORNELIUS RODRIGUEZ Attending Clinician Unavailable MD FRANDY BERUMEN Attending Clinician Unavailable JAMAICA Attending Clinician Unavailable Doctor Unassigned, Name Attending Clinician Unavailable Efe CORDON Attending Clinician Amadou MCFADDEN Attending Clinician CLAUDIA Attending Clinician Unavailable MD FRANDY BERUMEN Admitting Clinician Unavailable CLAUDIA Admitting Clinician Unavailable Payers Payer Name Policy Type Policy Number Effective Date Expiration Date S ource Problems Condition Condition Condition Status Onset Resolution Last Treating Co mments Source Name Details Category Date Date Treatment Clinician Date Endometria Endometria Disease Active Overview : Univers l polyp l polyp 04-05 Formattin ity o f 00:00: g of this [place] 00 note Medical might be Branch different from the original. 03/31/19 - hysterosc opic polypecto my. Histology revealed benign endocervi manuel tissue and a benign polyp Obesity Obesity Disease Active Univers (BMI (BMI 8-23 ity of 30-39.9) 30-39.9) 00:00: [place] 00 Medical Branch Postmenopa Postmenopa Disease Active 2018- U nivers usal usal 8 ity of bleeding bleeding 00:00: 00 [facility] Allergies, Adverse Reactions, Alerts Allergy Allergy Status Severity Reaction(s) Onset Inactive Treating Comm ents Source Name Type Date Date Clinician MEPERIDI DRUG Active High Unknown-Cmnt Un eli NE HCL INGREDI 03-27 ity of 00:00: 00 Medical Branch Meperidi Propensi Active Unknown - SEVERE Uni vers ne Hcl ty to See comments 03-27 N/V AFTER i ty of adverse 00:00: HERNIA [place] reaction 00 SURGERY Medical s to R/T Branch drug DEMEROL PER PT STATEMENT PROMETHA DRUG Active Hallucinates Un eli ZINE INGREDI ity of [facility] Prometha Propensi Active Hallucinatio Univers zine ty to ns ity of adverse [place] reaction Medical s [place] Social History Social Habit Start Date Stop Date Quantity Comments Source Alcohol intake [facility] History [facility] o f Alcohol Std Drinks [facility] History [facility] o f Alcohol Binge [facility] [place] History of tobacco Cigarette Smoker [place] of use [facility] ASSERTION [facility] Sex Assigned At Universit y of [facility] History [facility] o f Alcohol Comment [facility] ical [place] Exposure to Not sure [facility] SARS-CoV-2 (event) [facility] History [facility] 2019-03-10 2019-03-10 1 University o f Alcohol Frequency 00:00:00 00:00:00 [facility] Branch Cigarettes smoked 2019-03-10 2019-03-10 Univers ity of current (pack per 00:00:00 00:00:00 [facility] ) - Reported Branch Cigarette 2019-03-10 2019-03-10 University of pack-years 00:00:00 00:00:00 [facility] Tobacco use and 2018-04-07 2018-04-07 Never used Universit y of exposure 00:00:00 00:00:00 [facility] Smoking Status Start Date Stop Date Source Current every day smoker 2019-03-10 00:00:00 Uni versity of [facility] Medications Ordered Filled Start Stop Current Ordering Indication Dosage Frequency Signature Comments Components Source Medication Medication Date Date Medication? Clinician (SIG) Name Name ONDANSETRON Yes [id number] TAKE 1 Univers 4 mg tablet 1-28 TABLET BY ity of 00:00: MOUTH [place] 00 EVERY 8 Medical HOURS Branch NEEDED FOR NAUSEA AND VOMITING fluticasone Yes [id number] 2{puff} Inhale 2 Univers propionate 1-12 Puffs ity of (FLOVENT 00:00: every 12 [place] HFA) 110 00 (twelve) Medical mcg/actuati hours. Branch on inhaler fluticasone Yes [id number] 2{puff} Inhale 2 Univers propionate 1-12 Puffs ity of (FLOVENT 00:00: every 12 [place] HFA) 110 00 (twelve) Medical mcg/actuati hours. Branch on inhaler predniSONE Yes [id number] 20mg Take 1 U nivers 20 mg 1-11 tablet by ity of tablet 00:00: mouth [place] 00 daily. Medical Branch amoxicillin Yes [id number] 875mg Take 1 Univers 875 mg 1-11 tablet by ity of tablet 00:00: mouth [place] (two) Medical times Branch daily. albuterol Yes [id number] 2{puff} Inhale 2 Univers 90 1-11 Puffs ity of mcg/actuati 00:00: every 6 [place] as on inhaler 00 (six) Medical hours as Branch needed for Wheezing or Shortness of Breath. lisinopriL Yes [id number] 20mg Take 1 U nivers 20 mg 1-11 tablet by ity of tablet 00:00: mouth [place] (two) Medical times Branch daily. hydrALAZINE Yes [id number] 50mg Take 1 Univers 50 mg 1-11 tablet by ity of tablet 00:00: mouth [place] (two) Medical times Branch daily. DULoxetine Yes [id number] 60mg Take 1 Univers 60 mg 1-11 capsule by ity of capsule 00:00: mouth [address] [place] [address] (two) Medical times Branch daily. carvediloL Yes [id number] 25mg Take 1 U nivers 25 mg 1-11 tablet by ity of tablet 00:00: mouth [address] [place] [address] (two) Medical times Branch daily with meals. zolpidem 10 2022-0 Yes [id number] 10mg Take 1 Univers mg tablet 1-11 tablet by ity o f 00:00: mouth at [place] bedtime. Medical Branch albuterol Yes [id number] 2.5mg Inhale 3 Univers 2.5 mg /3 1-11 mL every 4 ity of mL (0.083 00:00: (four) [place] %) 00 hours as Medical nebulizer needed for Bran ch solution Wheezing or Shortness of Breath. predniSONE 0 Yes [id number] 20mg Take 1 U nivers 20 mg 1-11 tablet by ity of tablet 00:00: mouth 00 daily. Medical Branch amoxicillin 2021-0 Yes [id number] 875mg Take 1 Univers 875 mg 1-11 tablet by ity of tablet 00:00: mouth 2 (two) Medical times Branch daily. albuterol Yes [id number] 2{puff} Inhale 2 Univers 90 1-11 Puffs ity of mcg/actuati 00:00: every 6 [place] as on inhaler 00 (six) Medical hours as Branch needed for Wheezing or Shortness of Breath. lisinopriL Yes [id number] 20mg Take 1 U nivers 20 mg 1-11 tablet by ity of tablet 00:00: mouth (two) Medical times Branch daily. hydrALAZINE Yes [id number] 50mg Take 1 Univers 50 mg 1-11 tablet by ity of tablet 00:00: mouth 2 (two) Medical times Branch daily. DULoxetine 0 Yes [id number] 60mg Take 1 Univers 60 mg 1-11 capsule by ity of capsule 00:00: mouth 2 (two) Medical times Branch daily. carvediloL 2021-0 Yes [id number] 25mg Take 1 U nivers 25 mg 1-11 tablet by ity of tablet 00:00: mouth (two) Medical times Branch daily with meals. zolpidem 10 Yes [id number] 10mg Take 1 Univers mg tablet 1-11 tablet by ity o f 00:00: mouth at [place] 00 bedtime. Medical Branch albuterol Yes [id number] 2.5mg Inhale 3 Univers 2.5 mg /3 1-11 mL every 4 ity of mL (0.083 00:00: (four) [place] %) 00 hours as Medical nebulizer needed for Bran ch solution Wheezing or Shortness of Breath. predniSONE 2021-0 Yes [id number] 20mg Take 1 U nivers 20 mg 1-11 tablet by ity of tablet 00:00: mouth [place] 00 daily. Medical Branch amoxicillin 2021-0 Yes [id number] 875mg Take 1 Univers 875 mg 1-11 tablet by ity of tablet 00:00: mouth 2 [place] 00 (two) Medical times Branch daily. albuterol 2021-0 Yes [id number] 2{puff} Inhale 2 Univers 90 1-11 Puffs ity of mcg/actuati 00:00: every 6 [place] on inhaler 00 (six) Medical hours as Branch needed for Wheezing or Shortness of Breath. Mometasone- 0 Yes [id number] 2{puff} Inhale 2 Univers Formoterol 1-11 Puffs 2 ity of (DULERA) 00:00: (two) [place] 200-5 00 times Medical mcg/actuati daily. Branch on inhaler lisinopriL 2021-0 Yes [id number] 20mg Take 1 U nivers 20 mg 1-11 tablet by ity of tablet 00:00: mouth 2 00 (two) Medical times Branch daily. hydrALAZINE 2021-0 Yes [id number] 50mg Take 1 Univers 50 mg 1-11 tablet by ity of tablet 00:00: mouth 2 [place] 00 (two) Medical times Branch daily. DULoxetine 2021-0 Yes [id number] 60mg Take 1 Univers 60 mg 1-11 capsule by ity of capsule 00:00: mouth 2 [place] 00 (two) Medical times Branch daily. carvediloL 2021-0 Yes [id number] 25mg Take 1 U nivers 25 mg 1-11 tablet by ity of tablet 00:00: mouth 2 [place] (two) Medical times Branch daily with meals. zolpidem 10 2021-0 Yes [id number] 10mg Take 1 Univers mg tablet 1-11 tablet by ity o f 00:00: mouth at [place] 00 bedtime. Medical Branch predniSONE 2021-0 Yes [id number] 20mg Take 1 U nivers 20 mg 1-11 tablet by ity of tablet 00:00: mouth [place] 00 daily. Medical Branch amoxicillin 0 Yes [id number] 875mg Take 1 Univers 875 mg 1-11 tablet by ity of tablet 00:00: mouth 2 (two) Medical times Branch daily. albuterol 0 Yes [id number] 2{puff} Inhale 2 Univers 90 1-11 Puffs ity of mcg/actuati 00:00: every 6 [place] on inhaler 00 (six) Medical hours as Branch needed for Wheezing or Shortness of Breath. lisinopriL 0 Yes [id number] 20mg Take 1 U nivers 20 mg 1-11 tablet by ity of tablet 00:00: mouth 2 (two) Medical times Branch daily. hydrALAZINE 2021-0 Yes [id number] 50mg Take 1 Univers 50 mg 1-11 tablet by ity of tablet 00:00: mouth 2 (two) Medical times Branch daily. DULoxetine Yes [id number] 60mg Take 1 Univers 60 mg 1-11 capsule by ity of capsule 00:00: mouth 2 (two) Medical times Branch daily. carvediloL Yes [id number] 25mg Take 1 U nivers 25 mg 1-11 tablet by ity of tablet 00:00: mouth 2 (two) Medical times Branch daily with meals. zolpidem 10 0 Yes [id number] 10mg Take 1 Univers mg tablet 1-11 tablet by ity o f 00:00: mouth at [place] 00 bedtime. Medical Branch albuterol 0 Yes [id number] 2.5mg Inhale 3 Univers 2.5 mg /3 1-11 mL every 4 ity of mL (0.083 00:00: (four) [place] %) 00 hours as Medical nebulizer needed for Bran ch solution Wheezing or Shortness of Breath. Mometasone- 2021-0 2021- No [id number] 2{puff} Inhale 2 Univers Formoterol 1-11 01-11 Puffs 2 ity o f (DULERA) 00:00: 00:00 (two) [place] 200-5 00 :00 times Medical mcg/actuati daily. Branch on inhaler albuterol 2021-0 Yes [id number] 2{puff} Inhale 2 Univers 90 1-07 Puffs ity of mcg/actuati 00:00: every 6 [place] on inhaler 00 (six) Medical hours as Branch needed for Wheezing or Shortness of Breath. albuterol Yes [id number] 2{puff} Inhale 2 Univers 90 1-07 Puffs ity of mcg/actuati 00:00: every 6 [place] on inhaler 00 (six) Medical hours as Branch needed for Wheezing or Shortness of Breath. albuterol Yes [id number] 2{puff} Inhale 2 Univers 90 1-07 Puffs ity of mcg/actuati 00:00: every 6 [place] on inhaler 00 (six) Medical hours as Branch needed for Wheezing or Shortness of Breath. albuterol Yes [id number] 2{puff} Inhale 2 Univers 90 1-07 Puffs ity of mcg/actuati 00:00: every 6 [place] on inhaler 00 (six) Medical hours as Branch needed for Wheezing or Shortness of Breath. ZOLPIDEM 10 2020-07 2022- No [id number] 10mg TAKE 1 Univers mg tablet 2-13 - TABLET BY ity of 00:00: 00:00 MOUTH AT [place] 00 :00 BEDTIME. Medical Branch ONDANSETRON Yes [id number] TAKE 1 Univers 4 mg tablet 9-17 TABLET BY ity of 00:00: MOUTH [place] 00 EVERY 8 Medical HOURS Branch NEEDED FOR NAUSEA AND VOMITING ONDANSETRON 0 Yes [id number] TAKE 1 Univers 4 mg tablet 9-17 TABLET BY ity of 00:00: MOUTH [place] 00 EVERY 8 Medical HOURS Branch NEEDED FOR NAUSEA AND VOMITING ONDANSETRON 0 Yes [id number] TAKE 1 Univers 4 mg tablet 9-17 TABLET BY ity of 00:00: MOUTH [place] 00 EVERY 8 Medical HOURS Branch NEEDED FOR NAUSEA AND VOMITING ONDANSETRON 0 2021- No [id number] TAKE 1 Univers 4 mg tablet 9-17 - TABLET BY it y of 00:00: 00:00 MOUTH [place] 00 :00 EVERY 8 Medical HOURS Branch NEEDED FOR NAUSEA AND VOMITING buprenorphi [address] 150 Univers ne HCL 150 6-14 mg in ity of mcg Film 09:07: cheeks 2 [place] 34 (two) Medical times Branch daily. buprenorphi 2020-[address] 150 Univers ne HCL 150 6-14 mg in ity of mcg Film 09:07: cheeks 2 [place] 34 (two) Medical times Branch daily. buprenorphi 2020-[address] 150 Univers ne HCL 150 6-14 mg in ity of mcg Film 09:07: cheeks 2 [place] 34 (two) Medical times Branch daily. buprenorphi 2020-[address] 150 Univers ne HCL 150 6-14 mg in ity of mcg Film 09:07: cheeks 2 [place] 34 (two) Medical times Branch daily. lisinopriL 2021- No [id number] 20mg Take 1 Univers 20 mg 6-14 -11 tablet by ity of tablet 00:00: 00:00 mouth 2 [place] 00 :00 (two) Medical times Branch daily. hydrALAZINE 2021- No [id number] 50mg Take 1 Univers 50 mg 6-14 07-29 tablet by ity of tablet 00:00: 00:00 mouth 2 [place] 00 :00 (two) Medical times Branch daily. DULoxetine 2021- No [id number] 60mg Take 1 Univers 60 mg 6-14 07-29 capsule by ity of capsule 00:00: 00:00 mouth 2 [place] 00 :00 (two) Medical times Branch daily. carvediloL 2021- No [id number] 25mg Take 1 Univers 25 mg 6-14 -11 tablet by ity of tablet 00:00: 00:00 mouth 2 [place] 00 :00 (two) Medical times Branch daily with meals. aspirin 2020- Yes 325mg Take 325 Unive rs E.C. 325 mg 2-14 mg by ity of EC tablet 08:57: mouth [place] 56 daily. Medical Branch aspirin 2020- Yes 325mg Take 325 Unive rs E.C. 325 mg 2-14 mg by ity of EC tablet 08:57: mouth [place] 56 daily. Medical Branch aspirin 2020-1 Yes 325mg Take 325 Unive rs E.C. 325 mg 2-14 mg by ity of EC tablet 08:57: mouth [place] 56 daily. Medical Branch aspirin 2019- Yes 325mg Take 325 Unive rs E.C. 325 mg 2-14 mg by ity of EC tablet 08:57: mouth [place] 56 daily. Medical Branch cloNIDine 2019-07- No [id number] .2mg Take 1 U nivers 0.2 mg 2-14 - tablet by ity of tablet 00:00: 00:00 mouth 3 [place] 00 :00 (three) Medical times Branch daily. vitamin 2020-0 Yes 500ug Take 500 Unive rs B-12 2-17 mcg by ity of (VITAMIN 10:20: mouth [place] B-12) 500 19 daily. Medical mcg tablet Branch vitamin 2020-0 Yes 500ug Take 500 Unive rs B-12 2-17 mcg by ity of (VITAMIN 10:20: mouth [place] B-12) 500 19 daily. Medical mcg tablet Branch vitamin 2020-0 Yes 500ug Take 500 Unive rs B-12 2-17 mcg by ity of (VITAMIN 10:20: mouth [place] B-12) 500 19 daily. Medical mcg tablet Branch vitamin 2020-0 Yes 500ug Take 500 Unive rs B-12 2-17 mcg by ity of (VITAMIN 10:20: mouth [place] B-12) 500 19 daily. Medical mcg tablet Branch vitamin C 2020-0 Yes 1000mg Take 1,000 Univers with oren 2-17 mg by ity of hips 10:19: mouth [place] (VITAMIN C) 47 daily. Medica l 1,000 mg Branch tablet vitamin C 2020-0 Yes 1000mg Take 1,000 Univers with oren 2-17 mg by ity of hips 10:19: mouth [place] (VITAMIN C) 47 daily. Medica l 1,000 mg Branch tablet vitamin C 2020-0 Yes 1000mg Take 1,000 Univers with oren 2-17 mg by ity of hips 10:19: mouth [place] (VITAMIN C) 47 daily. Medica l 1,000 mg Branch tablet vitamin C 2020-0 Yes 1000mg Take 1,000 Univers with oren 2-17 mg by ity of hips 10:19: mouth [place] (VITAMIN C) 47 daily. Medica l 1,000 mg Branch tablet donepezil 2020-0 Yes 10mg Take 10 mg Un eli (ARICEPT) 2-17 by mouth 2 ity of 10 mg 10:18: (two) [place] tablet 14 times Medical daily. Branch HYDROcodone 2020-0 Yes hydrocodon Univers -acetaminop 2-17 e 10 ity of hen 10-325 10:18: mg-acetami [place] mg tablet 14 nophen 325 Medi manuel mg tablet Branch Take 1 tablet every 6 hours by oral route as needed for 30 days. donepezil 2020-0 Yes 10mg Take 10 mg Un eli (ARICEPT) 2-17 by mouth 2 ity of 10 mg 10:18: (two) [place] tablet 14 times Medical daily. Branch HYDROcodone 2020-0 Yes hydrocodon Univers -acetaminop 2-17 e 10 ity of hen 10-325 10:18: mg-acetami [place] mg tablet 14 nophen 325 Medi manuel mg tablet Branch Take 1 tablet every 6 hours by oral route as needed for 30 days. donepezil 2020-0 Yes 10mg Take 10 mg Un eli (ARICEPT) 2-17 by mouth 2 ity of 10 mg 10:18: (two) [place] tablet 14 times Medical daily. Branch HYDROcodone 2020-0 Yes hydrocodon Univers -acetaminop 2-17 e 10 ity of hen 10-325 10:18: mg-acetami [place] mg tablet 14 nophen 325 Medi manuel mg tablet Branch Take 1 tablet every 6 hours by oral route as needed for 30 days. donepezil 2020-0 Yes 10mg Take 10 mg Un eli (ARICEPT) 2-17 by mouth 2 ity of 10 mg 10:18: (two) [place] tablet 14 times Medical daily. Branch HYDROcodone 2020-0 Yes hydrocodon Univers -acetaminop 2-17 e 10 ity of hen 10-325 10:18: mg-acetami [place] mg tablet 14 nophen 325 Medi manuel mg tablet Branch Take 1 tablet every 6 hours by oral route as needed for 30 days. memantine Yes 10mg Take 10 mg Un eli 10 mg 9-13 by mouth ity of tablet 12:31: daily. [address] memantine 0 Yes 10mg Take 10 mg Un eli 10 mg 9-13 by mouth ity of tablet 12:31: daily. [address] memantine 2018-0 Yes 10mg Take 10 mg Un eli 10 mg 9-13 by mouth ity of tablet 12:31: daily. [address] memantine 2018-0 Yes 10mg Take 10 mg Un eli 10 mg 9-13 by mouth ity of tablet 12:31: daily. [address] carvedilol 2019-0 Yes 25mg Take 25 mg U nivers 25 mg 8-23 by mouth. ity of tablet 13:24: [address] lisinopril 2019-0 Yes 20mg Take 20 mg U nivers 20 mg 8-23 by mouth. ity of tablet 13:24: [address] DULoxetine 2018-0 Yes 60mg Take 60 mg U nivers 60 mg 8-23 by mouth. ity of capsule 13:24: [address] donepezil 5 2018-0 Yes 5mg Take 5 mg U nivers mg tablet 8-23 by mouth. ity o f 13:24: [address] hydralAZINE 2018-0 Yes 50mg Take 50 mg Univers 50 mg 8-23 by mouth 2 ity of tablet 13:24: (two) [place] 20 times Medical daily. Branch memantine 0 Yes 10mg Take 10 mg Un eli 10 mg 8-23 by mouth ity of tablet 13:24: daily. [address] zolpidem 2018-0 Yes Ambien 10 Univ ers (AMBIEN) 10 8-23 mg tablet ity of mg tablet 13:24: Take 1 [place] 20 tablet as Medical needed by Branch oral route. cloniDINE 2019-0 Yes .2mg Take 0.2 Univ ers 0.2 mg 8-23 mg by ity of tablet 13:24: mouth 3 [place] [address] (three) Medical times [place] daily. carvedilol 2019-0 Yes 25mg Take 25 mg U nivers 25 mg 8-23 by mouth. ity of tablet 13:24: [address] lisinopril 2019-0 Yes 20mg Take 20 mg U nivers 20 mg 8-23 by mouth. ity of tablet 13:24: [address] DULoxetine 2019-0 Yes 60mg Take 60 mg U nivers 60 mg 8-23 by mouth. ity of capsule 13:24: [address] donepezil 5 2018-0 Yes 5mg Take 5 mg U nivers mg tablet 8-23 by mouth. ity o f 13:24: [address] hydralAZINE 2018-0 Yes 50mg Take 50 mg Univers 50 mg 8-23 by mouth 2 ity of tablet 13:24: (two) [place] 20 times Medical daily. Branch memantine 2019-0 Yes 10mg Take 10 mg Un eli 10 mg 8-23 by mouth ity of tablet 13:24: daily. [address] zolpidem 2019-0 Yes Ambien 10 Univ ers (AMBIEN) 10 8-23 mg tablet ity of mg tablet 13:24: Take 1 [place] 20 tablet as Medical needed by Branch oral route. cloniDINE 2018- Yes .2mg Take 0.2 Univ ers 0.2 mg 8-23 mg by ity of tablet 13:24: mouth 3 [place] [address] (three) Medical times [place] daily. carvedilol 2019-0 Yes 25mg Take 25 mg U nivers 25 mg 8-23 by mouth. ity of tablet 13:24: [address] lisinopril 2019-0 Yes 20mg Take 20 mg U nivers 20 mg 8-23 by mouth. ity of tablet 13:24: [address] DULoxetine 0 Yes 60mg Take 60 mg U nivers 60 mg 8-23 by mouth. ity of capsule 13:24: [address] donepezil 5 0 Yes 5mg Take 5 mg U nivers mg tablet 8-23 by mouth. ity o f 13:24: [address] hydralAZINE 0 Yes 50mg Take 50 mg Univers 50 mg 8-23 by mouth 2 ity of tablet 13:24: (two) [place] 20 times Medical daily. Branch memantine 0 Yes 10mg Take 10 mg Un eli 10 mg 8-23 by mouth ity of tablet 13:24: daily. [address] zolpidem 0 Yes Ambien 10 Univ ers (AMBIEN) 10 8-23 mg tablet ity of mg tablet 13:24: Take 1 [place] 20 tablet as Medical needed by Branch oral route. cloniDINE 2018- Yes .2mg Take 0.2 Univ ers 0.2 mg 8-23 mg by ity of tablet 13:24: mouth 3 [place] [address] (three) Medical times [place] daily. acetaminoph Yes [id number] 1{tbl} Take 1 Univers en-codeine 8-23 tablet by ity of (TYLENOL-CO 00:00: mouth [place] DEINE #3) 00 every 6 Medical 300-30 mg (six) Branch tablet hours as needed (pain). acetaminoph Yes [id number] 1{tbl} Take 1 Univers en-codeine 8-23 tablet by ity of (TYLENOL-CO 00:00: mouth [place] DEINE #3) 00 every 6 Medical 300-30 mg (six) Branch tablet hours as needed (pain). acetaminoph 2019-0 Yes [id number] 1{tbl} Take 1 Univers en-codeine 8-23 tablet by ity of (TYLENOL-CO 00:00: mouth [place] DEINE #3) 00 every 6 Medical 300-30 mg (six) Branch tablet hours as needed (pain). zolpidem 2017-07 Yes Ambien 10 Univ ers (AMBIEN) 10 1-01 mg tablet ity of mg tablet 13:33: Take 1 [place] 12 tablet as Medical needed by Branch oral route. cloniDINE 2017-07 Yes .2mg Take 0.2 Univ ers 0.2 mg 1-01 mg by ity of tablet 13:33: mouth 3 [place] 12 (three) Medical times Branch daily. lisinopril 2017-07 Yes 20mg Take 20 mg U nivers 20 mg 1-01 by mouth. ity of tablet 13:28: [address] DULoxetine 2017-07 Yes 60mg Take 60 mg U nivers 60 mg 1-01 by mouth. ity of capsule 13:28: [address] donepezil 5 2017-07 Yes 5mg Take 5 mg U nivers mg tablet 1-01 by mouth. ity o f 13:28: [address] hydralAZINE 2017-07 Yes 50mg Take 50 mg Univers 50 mg 1-01 by mouth 2 ity of tablet 13:28: (two) [place] [address] times Medical daily. Branch memantine 2017-07 Yes 10mg Take 10 mg Un eil 10 mg 1-01 by mouth ity of tablet 13:28: daily. [address] carvedilol 2017-07 Yes 25mg Take 25 mg U nivers 25 mg 1-01 by mouth. ity of tablet 13:28: [address] varenicline 2017-07 Yes Take one Un eli (CHANTIX 1-01 0.5mg tab ity of STARTING 00:00: by mouth [facility] BOX) 00 once daily Med ical 0.5 mg for 3 Branch (11)- 1 mg days, then (42) tablet one 0.5mg tab twice daily for 4 days, then one 1mg tab twice daily. varenicline 2017-07 Yes 1mg Take 1 Univ ers (CHANTIX 1- tablet by ity of CONTINUING 00:00: mouth 2 [place] MON[place] BOX[place] 00 (two) Medical 1 mg tablet times Branch daily. varenicline 2017-07- No Take one U nivers (CHANTIX 07-19-23 0.5mg tab ity o f STARTING 00:00: 00:00 [place] MON[place] BOX[place] 00 :00 once daily Med ical 0.5 mg for 3 Branch (11)- 1 mg days, then (42) tablet one 0.5mg tab twice daily for 4 days, then one 1mg tab twice daily. varenicline 2017-07- No 1mg Take 1 Uni vers (CHANTIX -07 26- tablet by ity o f CONTINUING 00:00: 00:00 mouth 2 [place] MONTH BOX) 00 :00 (two) Medical 1 mg tablet times Branch daily. varenicline 2017-07- No Take one U nivers (CHANTIX 07-19-23 0.5mg tab ity o f STARTING 00:00: 00:00 [place] MON[place] BOX[place] 00 :00 once daily Med ical 0.5 mg for 3 Branch (11)- 1 mg days, then (42) tablet one 0.5mg tab twice daily for 4 days, then one 1mg tab twice daily. varenicline 2017-07- No 1mg Take 1 Uni vers (CHANTIX 07-19 tablet by ity o f CONTINUING 00:00: 00:00 mouth 2 [place] MONTH BOX) 00 :00 (two) Medical 1 mg tablet times Branch daily. sulfamethox 2016-07 Yes Take one Un eli azole-trime 0-03 tablet by ity of thoprim 00:00: mouth [place] 800-160 mg 00 every 12 Medic al per tablet hours for Bran ch 10 days. sulfamethox 2016-07- No Take one U nivers azole-trime 0-03 08-23 tablet by it y of thoprim 00:00: 00:00 mouth [place] 800-160 mg 00 :00 every 12 Medic al per tablet hours for Bran ch 10 days. sulfamethox 2016-07- No Take one U nivers azole-trime 0-03 08-23 tablet by it y of thoprim 00:00: 00:00 mouth [place] 800-160 mg 00 :00 every 12 Medic al per tablet hours for Bran ch 10 days. Immunizations Ordered Filled Immunization Date Status Comments [facility] e Immunization Name Name Influenza Virus 2020-07-01 Completed Universit y of Vaccine [place] .5 mL 00:00:00 [place] Medical IM 6+ MO Branch Influenza Virus 2020-07-01 Completed Universit y of Vaccine [place] .5 mL 00:00:00 [place] Medical IM 6+ MO Branch Influenza Virus 2020-07-01 Completed Universit y of Vaccine [place] .5 mL 00:00:00 [place] Medical IM 6+ MO Branch Influenza Virus 2020-07-01 Completed Universit y of Vaccine [place] .5 mL 00:00:00 [place] Medical IM 6+ MO Branch Influenza Virus 2019-09-04 Completed Universit y of Vaccine [place] .5 mL 00:00:00 [facility] IM 6+ MO Branch TDAP (ADACEL) 2019-09-04 Completed University of VACCINE 00:00:00 [facility] Influenza Virus 2019-09-04 Completed Universit y of Vaccine [place] .5 mL 00:00:00 [facility] 6+ MO Branch TDAP (ADACEL) 2019-09-04 Completed University of VACCINE 00:00:00 [facility] Influenza Virus 2019-09-04 Completed Universit y of Vaccine [place] .5 mL 00:00:00 [facility] IM 6+ MO Branch TDAP (ADACEL) 2019-09-04 Completed University of VACCINE 00:00:00 [facility] Influenza Virus 2019-09-04 Completed Universit y of Vaccine Quad .5 mL 00:00:00 [facility] IM 6+ MO Branch TDAP (ADACEL) 2019-09-04 Completed University of VACCINE 00:00:00 [facility] Vital Signs Vital Name Observation Time Observation Value Comments Source Systolic blood 2021-07-29 20:54:00 150 mm[Hg] Univer sity of pressure [facility] Diastolic blood 2021-07-29 20:54:00 84 mm[Hg] Unive rsity of pressure [facility] Heart rate 2021-07-29 20:53:00 79 /min Universi ty [facility] Body temperature 2021-07-29 20:53:00 36.89 Danitza Univ ersity [facility] Body height 2021-07-29 20:53:00 162.6 cm [facility] Body weight 2021-07-29 20:53:00 94.348 kg [facility] BMI 2021-07-29 20:53:00 35.70 kg/m2 [facility] Oxygen saturation in 2021-07-29 20:53:00 97 /min University Arterial blood by [facility] Pulse oximetry Branch Systolic blood 2019-03-10 13:13:00 141 mm[Hg] Univer sity of pressure [facility] Diastolic blood 2019-03-10 13:13:00 75 mm[Hg] Unive rsity of pressure [facility] Heart rate 2019-03-10 13:13:00 60 /min [facility] Body temperature 2019-03-10 13:13:00 36.83 Danitza Univ [facility] Respiratory rate 2019-03-10 13:13:00 18 /min [facility] Body height 2019-03-10 13:13:00 162.6 cm [facility] Body weight 2019-03-10 13:13:00 97.523 kg [facility] BMI 2019-03-10 13:13:00 36.90 kg/m2 [facility] Systolic blood 2019-03-10 13:13:00 141 mm[Hg] Univer [facility]ity [facility] Diastolic blood 2019-03-10 13:13:00 75 mm[Hg] Unive rsity of pressure [facility] Heart rate 2019-03-10 13:13:00 60 /min [facility] Body temperature 2019-03-10 13:13:00 36.83 Danitza Univ [facility] Respiratory rate 2019-03-10 13:13:00 18 /min [facility] Body height 2019-03-10 13:13:00 162.6 cm [facility] Body weight 2019-03-10 13:13:00 97.523 kg [facility] BMI 2019-03-10 13:13:00 36.90 kg/m2 [facility] Procedures Procedure Date / Time Performing Clinician Source Performed NO SHOW OR MISSED 2019-03-10 12:59:04 Doctor Unassigned, [facility] APPOINTMENT POLICY [facility] h ACKNOWLEDGEMENT Encounters Start End Encounter Admission Attending Care Care Encounter Source Date/Time Date/Time Type Type Clinicians Facility Department ID 2021-08-15 2021-08-15 [facility] [id number] [facility] 00:00:00 00:00:00 [facility] [id number] it y of [place] [id number] Luke as DANISH?BLEA [phone] [address] MEDICAL OFFICE [facility] 2021-07-30 2021-07-30 Telephone [facility] [id number] [facility] 00:00:00 00:00:00 [facility] [id number] it y of [place] [id number] Luke as DANISH?BLEA [id number] [address] OFFICE [facility] 2021-07-29 2021-07-29 Outpatient [facility] [id number] Univers 14:45:00 15:11:15 [facility] 2021-07-29 2021-07-29 Office [facility] [id number] Univers 14:45:00 15:11:15 Visit [facility] [id number] it y of [place] [id number] Luke as DANISH?BLEA [id number] [address] OFFICE [facility] 2021-07-29 2021-07-29 Telephone [facility] [id number] Univers 00:00:00 00:00:00 [facility] [id number] it y of [place] [id number] Luke as DANISH?BLEA [phone] [address] OFFICE [facility] 2020-07-22 2020-07-22 Outpatient [facility] [id number] [place] 00:00:00 00:00:00 LUCAS [address] 2020-07-22 2020-07-22 Outpatient [place], [facility] [id number] [place] 00:00:00 00:00:00 LUCAS 249 [address] i 2020-07-22 2020-07-22 Outpatient [facility], [facility] [id number] [place] 00:00:00 00:00:00 LUCAS 213 Method i 2020-07-22 2020-07-22 Outpatient [facility] [id number] [place] 00:00:00 00:00:00 LUCAS 150 Method i 2020-07-04 2020-07-04 Orders Doctor YANCY [id number] 00:00:00 00:00:00 Only Unassigned, MAYRA [id number] [place] [facility] [id number] 2020-07-01 2020-07-01 Office Jesus [facility] [id number] 08:50:10 09:20:32 Visit [facility] [id number] Cornelius Gracia [id number] Professio [phone] nal 0[address] 2020-06-21 2020-06-21 Outpatient [facility], [facility] [id number] [place] 00:00:00 00:00:00 LUCAS 504 Method i 2020-06-11 2020-06-11 Outpatient [facility], [facility] [id number] [place] 00:00:00 00:00:00 LUCAS 078 Method i 2020-06-11 2020-06-11 Outpatient [facility], [facility] [id number] [place] 00:00:00 00:00:00 LUCAS 027 Method i 2019-03-10 2019-03-10 Office Efe, [facility] 1.2.840.114 [id number] 07:59:20 09:00:22 Visit Jim Gracia [id number] [place] [id number] Professio [id number] nal 134 Building 2019-03-10 2019-03-10 Office Efe [facility] [id number] [facility] 07:59:20 09:00:22 Visit Jim Sanchez.[id number] i [id number] [id number] Ri dic[address] 2019-03-10 2019-03-10 Prep For JHOAN Tobar 1.2.840.114 [id number] 00:00:00 00:00:00 Surgery Emily Gracia [id number] [place] [id number] Professio [phone] [address] 2019-03-10 2019-03-10 Orders Doctor YANCY [id number] Univers 00:00:00 00:00:00 Only Unassigned, MAYRA [id number] ity of [place] [facility] [id number] Luke as [id number] [address] 2019-03-10 2019-03-10 Prep For JHOAN Tobar [id number] [facility] 00:00:00 00:00:00 Surgery Emily Gracia [id number] [id number] [phone] [address] Results Test Description Test Time Test Comments Results Result Comments Source SARS-CoV-2 (COVID-19) RNA [Presence] in Respiratory sp ecimen by 2020-07-22 17:20:48 DIALLO with probe detection Test Item Value Reference Range Interpretation Comme nts SARS-CoV-2 (COVID-19) RNA [Presence] in Respiratory Not detected No t-Detected specimen by DIALLO with probe detection (test code = 78072-1) XR Fluoroscopy in Imaging per [id number] 11:41:01Patient: ROLAN DAMON Date/Time03/15/2018 10:41 CDTReason for Examneurostimulator spineReportEXAM: FLUOROSCOPIC GUIDANCECLINICAL HISTORY: Back painTECHNIQUE: Fluoroscopic guidance was provided for neurostimulator device placement.FINDINGS:Fluoroscopic guidance was provided for neurostimulator device placement.Fluoroscopy time: Less than 5 mi nutesImage number: 1IMPRESSION:1. Fluoroscopic guidance was provided for neurostimulator device placement.2. Please see dedicated surgical report for further details.LOCATION: R16 Final Dictated by: MD Raul, Digna CDictated DT/TM: 03/15/2018 11:40 amSigned by: MD Carter Melanie CSigned (Electronic Signature): 03/15/2018 11:41 amAFB CULTURE + [id number] 14:52:00 Test Item Value Reference Range Interpretation Comments CULTURE (BEAKER) (test No acid-fast bacilli code = 1095) isolated in 42 days AFB SMEAR (BEAKER) No acid fast bacilli (test code = 994) seen FUNGUS CULTURE + [id number] 12:30:00 Test Item Value Reference Range Interpretation Comments CULTURE (BEAKER) (test No fungus isolated in code = 1095) 28 days FUNGUS SMEAR (BEAKER) No fungi seen (test code = 1406) ANAEROBIC [id number] 16:38:00 Test Item Value Reference Range Interpretation Comments CULTURE (BEAKER) (test No anaerobes isolated code = 1095) SURGICALLY OBTAINED CULTURE + GRAM [id number] 11:01:00 Test Item Value Reference Range Interpretation Comments CULTURE (BEAKER) (test code No growth = 1095) GRAM STAIN RESULT (BEAKER) <1+ WBCs (test code = 1123) GRAM STAIN RESULT (BEAKER) No organisms seen (test code = 94108) SPIN/CONCENTRATION [id number] 12:26:00 Test Item Value Reference Range Interpretation Comments CONCENTRATION CHARGED (BEAKER) (test Done code = 2657)
[2021-12-09] MEDS ORDERED: KETOROLAC 30 MG/ML INJ ONE (09:07)
--- NOTE | 2021-12-09 09:27 | RAD REPORT ---
EXAM DESCRIPTION: RAD - Knee Right 3 View - 12/09/2021 9:18 am CLINICAL HISTORY: PAIN COMPARISON: No comparisons FINDINGS/IMPRESSION: No acute fracture. No malalignment. No significant focal degenerative changes.
--- NOTE | 2021-12-09 09:39 | ER ---
Nurse's Notes [facility] Name: Mariela Hayes Age: 56 yrs Sex: Female : 1965 Arrival Date: 12/09/2021 Time: 08:41 Bed 12 Private MD: Floyd Singh Diagnosis: Pain in right knee Presentation: 12/09 08:43 Chief complaint: Patient states: right knee pain x 2 week ago. Pt states "I've been aa5 doing water exercises so it started hurting then but last night it gave out on me last night and I had to catch myself". Coronavirus screen: At this time, the client does not indicate any symptoms associated with coronavirus-19. Ebola Screen: No symptoms or risks identified at this time. Initial Sepsis Screen: Does the patient meet any 2 criteria? No. Patient's initial sepsis screen is negative. Does the patient have a suspected source of infection? No. Patient's initial sepsis screen is negative. Risk Assessment: Do you want to hurt yourself or someone else? Patient reports no desire to harm self or others. Onset of symptoms was November 2021. 08:43 Acuity: JUAN 4 aa5 08:43 Method Of Arrival: Ambulatory aa5 Historical: - Allergies: 08:45 Phenergan; aa5 - PMHx: 08:45 Alzheimers; Chronic pain; Hypertension; Alzheimer's disease; aa5 - Immunization history:: Adult Immunizations unknown. - Social history:: Smoking status: Patient reports the use of cigarette tobacco products, smokes one-half pack cigarettes per day. Screenin:56 Abuse screen: Denies threats or abuse. Nutritional screening: No deficits noted. aa5 Tuberculosis screening: No symptoms or risk factors identified. Fall Risk Fall in past 12 months (25 points). Total Damon Fall Scale indicates Low Risk Score (25-44 pts). Fall prevention measures have been instituted. Side Rails Up X 2. Assessment: 08:46 General: Appears comfortable, Behavior is calm, cooperative. Pain: Complains of pain in aa5 right knee. Neuro: Level of Consciousness is awake, alert, obeys commands, Oriented to person, place, time, situation. Cardiovascular: Patient's skin is warm and dry. Respiratory: Airway is patent Respiratory effort is even, unlabored, Respiratory pattern is regular, symmetrical. GI: No signs and/or symptoms were reported involving the gastrointestinal system. : No signs and/or symptoms were reported regarding the genitourinary system. EENT: No signs and/or symptoms were reported regarding the EENT system. Derm: Skin is pink, warm \\T\\ dry. Musculoskeletal: Range of motion: intact in all extremities. Vital Signs: 08:43 BP 150 / 76; Pulse 69; Resp 18 S; Temp 99.7(O); Pulse Ox 100% on R/A; Weight 90.72 kg aa5 (R); Height 5 ft. 4 in. (162.56 cm) (R); 08:43 Body Mass Index 34.33 (90.72 kg, 162.56 cm) aa5 Daljit Coma Score: 08:52 Eye Response: spontaneous(4). Verbal Response: oriented(5). Motor Response: obeys [facility] commands(6). Total: 15. ED Course: 08:41 Patient arrived in ED. mr 08:41 Floyd Singh MD is Private Physician. mr 08:41 Ping Reyna FNP is [facility]. jh7 08:41 Juventino Guidry MD is Attending Physician. jh7 08:43 Arm band placed on. aa5 08:43 Patient has correct armband on for positive identification. Bed in low position. Call aa5 light in reach. Side rails up X 1. 08:45 Triage completed. aa5 09:01 Yesi Gamble, RN is Primary Nurse. ss 09:19 XRAY Knee RIGHT 3 view In Process Unspecified. EDMS 09:38 Chintan Landa MD is Referral Physician. 7 10:20 No provider procedures requiring assistance completed. Patient did not have IV access ss during this emergency room visit. Hao wrap to right knee. Administered Medications: 09:06 Drug: Ketorolac 60 mg Route: IM; Site: right gluteus; ss 10:20 Follow up: Response: No adverse reaction; Pain is decreased ss Outcome: 09:39 Discharge ordered by . jh7 10:20 Discharged to home ambulatory. ss 10:20 Condition: good 10:20 Discharge instructions given to patient, Instructed on discharge instructions, follow up and referral plans. Demonstrated understanding of instructions, follow-up care. 10:24 Patient left the ED. ss Signatures: Dispatcher [employer] Judit Christian mr Kwesi, [place], RN RN aa5 Yesi Gamble RN RN ss Hadash, Jennifer, KNOCK OUT HAND KNOCK OUT HAND 7 Corrections: (The following items were deleted from the chart) 08:46 08:43 BP 150 / 76; Pulse 69bpm; Resp 18bpm; Spontaneous; Pulse Ox 100% RA; aa5 aa5 08:51 08:43 BP 150 / 76; Pulse 69bpm; Resp 18bpm; Spontaneous; Pulse Ox 100% RA; 90.72 kg aa5 Reported; Height 5 ft. 4 in. Reported; BMI: 34.3; aa5
--- NOTE | 2021-12-09 09:39 | EDPHYS ---
Physician Documentation [facility] Name: Mariela Hayes Age: 56 yrs Sex: Female : 1965 Arrival Date: 12/09/2021 Time: 08:41 Bed 12 Private MD: Floyd Singh ED Physician Juventino Guidry HPI: 12/09 08:52 This 56 yrs old Female presents to ER via Ambulatory with complaints of Knee Pain. [facility] 08:52 Onset: The symptoms/episode began/occurred 3 day(s) ago. 56-year-old female presents jh7 with right knee pain for the last 3 days. She denies any known injury, but states that she was advised to start swimming recently. She feels that when she walks her knee occasionally gives out. No other symptoms at this time.. Historical: - Allergies: 08:45 Phenergan; aa5 - PMHx: 08:45 Alzheimers; Chronic pain; Hypertension; Alzheimer's disease; aa5 - Immunization history:: Adult Immunizations unknown. - Social history:: Smoking status: Patient reports the use of cigarette tobacco products, smokes one-half pack cigarettes per day. ROS: 08:52 Constitutional: Negative for fever, chills, and weight loss, Cardiovascular: Negative [facility] for chest pain, palpitations, and edema, Respiratory: Negative for shortness of breath, cough, wheezing, and pleuritic chest pain, Abdomen/GI: Negative for abdominal pain, nausea, vomiting, diarrhea, and constipation, Skin: Negative for injury, rash, and discoloration, Neuro: Negative for headache, weakness, numbness, tingling, and seizure. 08:52 MS/extremity: Positive for pain, of the right leg, Negative for injury or acute deformity. 08:52 All other systems are negative. Exam: 08:52 Constitutional: This is a well developed, well nourished patient who is awake, alert, jh7 and in no acute distress. Cardiovascular: Regular rate and rhythm with a normal S1 and S2. No gallops, murmurs, or rubs. Normal PMI, no JVD. No pulse deficits. Respiratory: Lungs have equal breath sounds bilaterally, clear to auscultation and percussion. No rales, rhonchi or wheezes noted. No increased work of breathing, no retractions or nasal flaring. Abdomen/GI: Soft, non-tender, with normal bowel sounds. No distension or tympany. No guarding or rebound. No evidence of tenderness throughout. Back: No spinal tenderness. No costovertebral tenderness. Full range of motion. Skin: Warm, dry with normal turgor. Normal color with no rashes, no lesions, and no evidence of cellulitis. Neuro: Awake and alert, GCS 15, oriented to person, place, time, and situation. Motor strength 5/5 in all extremities. Sensory grossly intact. Normal gait. 08:52 Musculoskeletal/extremity: ROM: full active range of motion, Circulation is intact in all extremities. Sensation intact. No TTP, swelling, or erythema noted. pain elicited in the posterior and lateral aspect of the knee with complete flexion. Occasional feeling of "instability" with ambulation. Vital Signs: 08:43 BP 150 / 76; Pulse 69; Resp 18 S; Temp 99.7(O); Pulse Ox 100% on R/A; Weight 90.72 kg aa5 (R); Height 5 ft. 4 in. (162.56 cm) (R); 08:43 Body Mass Index 34.33 (90.72 kg, 162.56 cm) aa5 [place] Coma Score: 08:52 Eye Response: spontaneous(4). Verbal Response: oriented(5). Motor Response: obeys jh7 commands(6). Total: 15. MDM: 08:49 Patient medically screened. [facility] 09:45 Differential diagnosis: sprain, strain. Data reviewed: vital signs, nurses notes, [facility] radiologic studies, plain films. Data interpreted: Pulse oximetry: is 100 %. Interpretation: normal. Counseling: I had a detailed discussion with the patient and/or guardian regarding: the historical points, exam findings, and any diagnostic results supporting the discharge/admit diagnosis. 10:10 ED course: The patient remained stable throughout the ER visit. Her x-rays were jh7 negative for fracture, or any other abnormalities. Her repeat temperature was 98 6. The patient states that her symptoms have significantly improved after the Toradol injection. An Hao wrap was applied. The patient declined crutches. She was advised to follow-up with Ortho if symptoms persist, and if she develops any new concerning symptoms, to return to the ER for eval. The patient understood the plan of care.. 12/09 08:49 Order name: XRAY Knee RIGHT 3 view; Complete Time: 09:38 jh7 12/09 09:40 Order name: Hao Wrap; Complete Time: 10:20 [facility] Administered Medications: 09:06 Drug: Ketorolac 60 mg Route: IM; Site: right gluteus; ss 10:20 Follow up: Response: No adverse reaction; Pain is decreased ss Disposition: 18:13 Co-signature as Attending Physician, Juventino Guidry MD. rn Disposition Summary: 12/09/21 09:39 Discharge Ordered Location: Home [facility] Problem: new [facility] Symptoms: have improved [facility] Condition: Stable [facility] Diagnosis - Pain in right knee [facility] Followup: [facility] - With: Chintan Landa MD - When: 2 - 3 days - Reason: Recheck today's complaints Discharge Instructions: - Discharge Summary Sheet [facility] - Acute Knee Pain, Adult [facility] Forms: - Medication Reconciliation Form [facility] - Thank You Letter [facility] Signatures: Dispatcher [employer] EDJuventino Gray MD MD rn Calderon, Audri, RN RN aa5 Yesi Gamble RN RN ss Ping Reyna, SUPERVISOR PAINTING DEPARTMENT SUPERVISOR PAINTING DEPARTMENT [facility]
[2021-12-09 10:35] VITALS: BP 150/76; TEMP 99.7; O2SAT 100
== END 2021-12-09 10:24 | disposition home or self-care (01) ==
LOC: ER 08:39
DX: M25.561 Pain in right knee (principal); G30.9 Alzheimer's disease, unspecified; F02.80 Dementia in other diseases classified elsewhere, unspecified severity, without behavioral disturbance, psychotic disturbance, mood disturbance, and anxiety; I10 Essential (primary) hypertension; F17.210 Nicotine dependence, cigarettes, uncomplicated; Z88.8 Allergy status to other drugs, medicaments and biological substances
CPT/HCPCS: 96372; 99283

== ENCOUNTER 2022-09-10 09:39 | Emergency (ER) | payer OTHER ==
--- OUTSIDE RECORDS SUMMARY | 2022-09-10 09:46 | XMS REPORT | Continuity of Care Document ---
:1965 Author Organization [facility] t Address [address] [place] [place] [address] Care Team Providers Name Role Phone Ernestina Lee MD Primary Care Physician [phone] Floyd Singh Attending Clinician Unavailable Ernestina Lee MD Attending Clinician NASREEN COONEY Attending Clinician Unavailable Nasreen Goldstein Attending Clinician Unknown, Attending Attending Clinician Unavailable MARIBEL MCKEON Attending Clinician Unavailable Maribel Marquez Attending Clinician Zulema FITNESS PLAN COORDINATOR, Ladan Sagastume Attending Clinician Doctor Unassigned, [place] Attending Clinician Unavailable ERNESTINA LEE Attending Clinician Unavailable Lab, Adc Fam Pob I Attending Clinician Unavailable Nikko GOFF Victorinodain Lynn Attending Clinician MD LUCAS BERUMEN Attending Clinician Unavailable LUCAS BERUMEN Attending Clinician Unavailable Breann CORDON, Felicity Cheung Attending Clinician Gita Warner Attending Clinician Jim Wilks MD Attending Clinician Emily Tobar PA-C Attending Clinician ANIVAL TAYLOR Attending Clinician Unavailable MD LUCAS BERUMEN Admitting Clinician Unavailable Jim Wilks MD Admitting Clinician ANIVAL TAYLOR Admitting Clinician Unavailable Payers Payer Name Policy Type Policy Number Effective Date Expiration Date S ource Problems Condition Condition Condition Status Onset Resolution Last Treating Co mments Source Name Details Category Date Date Treatment Clinician Date Endometria Endometria Disease Active Overview : Univers l polyp l polyp 04-05 Formattin ity o f 00:00: g of this [place] [id number] note Medical might be Branch different from the original. 03/31/19 - hysterosc opic polypecto my. Histology revealed benign endocervi manuel tissue and a benign polyp Obesity Obesity Disease Active Univers (BMI (BMI 8-23 ity of 30-39.9) 30-39.9) 00:00: [address] Postmenopa Postmenopa Disease Active U nivers usal usal 8-23 ity of bleeding bleeding 00:00: [address] Chronic Chronic Disease Active [facility] disorder 00:[facility]: Medica l [address] [place] [address] [id number] Microscopi Problem Co mmon c Spirit hematuria - [facility] [id number] Mixed Problem Common stress and Spirit [id number] Urinary Problem Commo n incontinen Spirit ce due to - [facility] severe [facility] physical [facility] [id number] Left renal Problem Co mmon mass Spirit - [facility] [id number] Acute Problem Common cystitis [facility] with - [facility] hematuria [facility] [id number] Complex Problem Commo n renal cyst [facility] - [facility] Allergies, Adverse Reactions, Alerts Allergy Allergy Status Severity Reaction(s) Onset Inactive Treating Comm ents Source Name Type Date Date Clinician prometha DA Active SV Hallucinatin SJ MCm zine g 11-08 00:00: 00 MEPERIDI DRUG Active High Unknown-Cmnt Un eli NE HCL INGREDI 03-27 ity of 00:00: [place] 00 Medical Branch Meperidi Propensi Active Unknown - SEVERE Uni vers ne Hcl ty to See comments 03-27 N/V AFTER i ty of adverse 00:00: HERNIA [place] reaction 00 SURGERY Medical s to R/T Branch drug DEMEROL PER PT STATEMENT Adhesive Propensi Active Other (See Blisters [facility] ty to Comments) 04-14 [facility] adverse 00:00: Medical reaction 00 Center s Prometha Propensi Active Hallucina [facility] zine ty to 04-14 tions [facility] adverse 00:00: Medical reaction 00 Center s prometha prometha Active Unknown Commo n zisravan zine [facility] PROMETHA DRUG Active Hallucinates Un eli ZINE INGREDI ity of [facility] [place] Social History Social Habit Start Date Stop Date Quantity Comments Source History of Tobacco Current Smoker Co mmon Spirit - Use [facility] History [facility] o f Alcohol Std Drinks [facility] [place] History [facility] o f Alcohol Binge [place] [facility] [place] [facility] [place] [facility] History [facility] o f Alcohol Comment [place] [facility] ical Branch Exposure to 2022-06-24 2022-07-04 Not sure University of SARS-CoV-2 (event) 00:00:00 15:05:00 [place] [facility] [place] History SDOH 2019-03-10 2019-03-10 1 University o f Alcohol Frequency 00:00:00 00:00:00 [facility] [place] [facility] edical Branch Alcohol intake 2017-04-16 2017-04-[address] [facility] 00:[facility] 00:00:00 non-drinker of Medical Ce nter alcohol (finding) Cigarettes smoked 2017-04-14 2017-04-[address] [facility] current (pack per 00:00:00 00:00:00 Medical Center day) - Reported Cigarette 2017-04-14 2017-04-[address] [facility] pack-years 00:00:00 00:00:00 Medical Center Tobacco use and 2017-04-14 2017-04-[address] [facility] exposure 00:00:00 00:00:00 [facility] Sex Assigned At [address] 00:00[facility]00 00:[facility]:00 [facility] Center Smoking Status Start Date Stop Date Source Tobacco smoking consumption [facility] unknown Current Smoker 2022-06-08 00:00:00 Common Spiri t [facility]ter Medications Ordered Filled Start Stop Current Ordering Indication Dosage Frequency Signature Comments Components Source Medication Medication Date Date Medication? Clinician (SIG) Name Name lisinopriL Yes [id number] TAKE 1 U nivers 20 mg 2-08 TABLET BY ity of tablet 00:00: MOUTH [place] 00 TWICE Medical DAILY Branch DULoxetine 0 Yes [id number] TAKE 1 Univers 60 mg 2-08 CAPSULE BY ity of capsule 00:00: MOUTH 00 TWICE Medical DAILY Branch lisinopriL 2022-0 Yes [id number] TAKE 1 U nivers 20 mg 1-11 TABLET BY ity of tablet 00:00: MOUTH 00 TWICE Medical DAILY Branch DULoxetine 2022-0 Yes [id number] TAKE 1 Univers 60 mg 1-11 CAPSULE BY ity of capsule 00:00: MOUTH [place] 00 TWICE Medical DAILY Branch lisinopriL 2022-0 2022- No [id number] TAKE 1 Univers 20 mg 1-11 02-08 TABLET BY ity of tablet 00:00: 00:00 MOUTH [place] 00 :00 TWICE Medical DAILY Branch DULoxetine 2022-0 2022- No [id number] TAKE 1 Univers 60 mg 1-11 02-08 CAPSULE BY ity of capsule 00:00: 00:00 MOUTH [place] 00 :00 TWICE Medical DAILY Branch codeine-gua 2021-07 Yes 10mL Take 10 mL Univers ifenesin 2-17 by mouth ity of 10-100 mg/5 00:00: every 6 [place] mL oral 00 (six) Medical solution hours as Branch needed for Cough. Indication s: cough methylPREDN 2021-07 Yes [id number] Take by Univers ISolone 2-17 mouth ity of (MEDROL, 00:00: SEE-INSTRU [place] NINA,) 4 mg 00 CTIONS. Medica l tablets follow Branch package directions codeine-gua 2021-07 Yes 10mL Take 10 mL Univers ifenesin 2-17 by mouth ity of 10-100 mg/5 00:00: every 6 [place] mL oral 00 (six) Medical solution hours as Branch needed for Cough. Indication s: cough methylPREDN 2021-07 Yes [id number] Take by Univers ISolone 2-17 mouth ity of (MEDROL, 00:00: SEE-INSTRU [place] NINA,) 4 mg 00 CTIONS. Medica l tablets follow Branch package directions codeine-gua 2021-07 Yes 10mL Take 10 mL Univers ifenesin 2-17 by mouth ity of 10-100 mg/5 00:00: every 6 [place] mL oral 00 (six) Medical solution hours as Branch needed for Cough. Indication s: cough methylPREDN 2021-07 Yes [id number] Take by Univers ISolone 2-17 mouth ity of (MEDROL, 00:00: SEE-INSTRU [place] NINA,) 4 mg 00 CTIONS. Medica l tablets follow Branch package directions codeine-gua 2021-07- No 10mL Take 10 mL Univers ifenesin 2-17 12-17 by mouth ity of 10-100 mg/5 00:00: 00:00 every 6 [place] mL oral 00 :00 (six) Medical solution hours as Branch needed for Cough for up to 7 days. Indication s: cough methylPREDN 2021-07- No [id number] Take by Univers ISolone 2-17 12-17 mouth ity of (MEDROL, 00:00: 00:00 [place]-INSTRU [place] NINA,) 4 mg 00 :00 CTIONS. Medica l tablets follow Branch package directions Sulfamethox Sulfamethox 2021-07- No 1{table BID Sulfametho azole-Trime azole-Trime 0-06 10-09 t} xazole-Tri thoprim thoprim 00:00: 00:00 methoprim 800-160 MG 800-160 MG 00 :00 800-160 MG Sulfamethox Sulfamethox 2021-07 202- No 1{table BID Sulfametho azole-Trime azole-Trime 0-06 04-26 t} xazole-Tri thoprim thoprim 00:00: 00:00 methoprim 800-160 MG 800-160 MG 00 :00 800-160 MG benzonatate 2021-0 Yes [id number] 100mg Take 1 Univers (TESSALON 7-31 capsule by ity of PERLES) 100 00:00: mouth [place] mg capsule 00 every 8 Medica l (eight) Branch hours as needed for Cough. molnupiravi 0 Yes [id number] 800mg Take 4 Univers r 200 mg 7-31 capsules ity of capsule 00:00: by mouth [place] 00 every 12 Medical (twelve) Branch hours. benzonatate 0 Yes [id number] 100mg Take 1 Univers (TESSALON 7-31 capsule by ity of PERLThe Bully Tracker) 100 00:00: mouth [place] mg capsule 00 every 8 Medica l (eight) Branch hours as needed for Cough. molnupiravi 0 Yes [id number] 800mg Take 4 Univers r 200 mg 7-31 capsules ity of capsule 00:00: by mouth [place] 00 every 12 Medical (twelve) Branch hours. benzonatate 0 Yes [id number] 100mg Take 1 Univers (TESSALON 7-31 capsule by ity of PERLES) 100 00:00: mouth [place] mg capsule 00 every 8 Medica l (eight) Branch hours as needed for Cough. molnupiravi 0 Yes [id number] 800mg Take 4 Univers r 200 mg 7-31 capsules ity of capsule 00:00: by mouth [place] 00 every 12 Medical (twelve) Branch hours. benzonatate 2021-0 Yes [id number] 100mg Take 1 Univers (TESSALON 7-31 capsule by ity of PERLES) 100 00:00: mouth [place] mg capsule 00 every 8 Medica l (eight) Branch hours as needed for Cough. molnupiravi 0 Yes [id number] 800mg Take 4 Univers r 200 mg 7-31 capsules ity of capsule 00:00: by mouth [place] 00 every 12 Medical (twelve) Branch hours. benzonatate 2021-0 Yes [id number] 100mg Take 1 Univers (TESSALON 7-31 capsule by ity of ERIKA) 100 00:00: mouth [place] mg capsule 00 every 8 Medica l (eight) Branch hours as needed for Cough. molnupiravi 2021-0 Yes [id number] 800mg Take 4 Univers r 200 mg 7-31 capsules ity of capsule 00:00: by mouth [place] 00 every 12 Medical (twelve) Branch hours. codeine-gua 2021- No [id number] 5mL Take 5 mL Univers ifenesin 7-31 08-08 by mouth ity of 10-100 mg/5 00:00: 04:59 every 6 [place] mL oral 00 :00 (six) Medical solution hours as Branch needed for Cough for up to 7 days. Indication s: acute pain codeine-gua 2021-0 2021- No [id number] 5mL Take 5 mL Univers ifenesin 7-31 08-08 by mouth ity of 10-100 mg/5 00:00: 04:59 every 6 [place] mL oral 00 :00 (six) Medical solution hours as Branch needed for Cough for up to 7 days. Indication s: acute pain Solifenacin Solifenacin 2021-2022- No 1{table QD Solifenaci Succinate 5 Succinate 5 02-06 t} n MG MG 00:00: 00:00 Succinate 00 :00 5 MG Solifenacin Solifenacin 2021-2022- No 1{table QD Solifenaci Succinate 5 Succinate 5 02-06 t} n MG MG 00:00: 00:00 Succinate 00 :00 5 MG Solifenacin Solifenacin 2021-0 202- No 1{table QD Solifenaci Succinate 5 Succinate 5 02-06 t} n MG MG 00:00: 00:00 Succinate 00 :00 5 MG Solifenacin Solifenacin 2021-2022- No 1{table QD Solifenaci Succinate 5 Succinate 5 02-06 t} n MG MG 00:00: 00:00 Succinate 00 :00 5 MG Solifenacin Solifenacin 2021-0 2022- No 1{table QD Solifenaci Succinate 5 Succinate 5 02-06 t} n MG MG 00:00: 00:00 Succinate 00 :00 5 MG ZOLPIDEM 10 0 Yes [id number] 10mg TAKE 1 Univers mg tablet 7-12 TABLET BY ity o f 00:00: MOUTH AT [place] [address] BEDTIME. Medical Branch ZOLPIDEM 10 0 Yes [id number] 10mg TAKE 1 Univers mg tablet 7-12 TABLET BY ity o f 00:00: MOUTH AT [place] [address] BEDTIME. Medical Branch ZOLPIDEM 10 0 Yes [id number] 10mg TAKE 1 Univers mg tablet 7-12 TABLET BY ity o f 00:00: MOUTH AT [place] [address] BEDTIME. Medical Branch ZOLPIDEM 10 0 Yes [id number] 10mg TAKE 1 Univers mg tablet 7-12 TABLET BY ity o f 00:00: MOUTH AT [place] [address] BEDTIME. Medical Branch ZOLPIDEM 10 0 Yes [id number] 10mg TAKE 1 Univers mg tablet 7-12 TABLET BY ity o f 00:00: MOUTH AT [place] [address] BEDTIME. Medical Branch ZOLPIDEM 10 0 Yes [id number] 10mg TAKE 1 Univers mg tablet 7-12 TABLET BY ity o f 00:00: MOUTH AT [place] [address] BEDTIME. Medical Branch ZOLPIDEM 10 0 Yes [id number] 10mg TAKE 1 Univers mg tablet 7-12 TABLET BY ity o f 00:00: MOUTH AT [place] [address] BEDTIME. Medical Branch ONDANSETRON 0 Yes [id number] TAKE 1 Univers 4 mg tablet 1-28 TABLET BY ity of 00:00: MOUTH [place] 00 EVERY 8 Medical HOURS Branch NEEDED FOR NAUSEA AND VOMITING ONDANSETRON 0 Yes [id number] TAKE 1 Univers 4 mg tablet 1-28 TABLET BY ity of 00:00: MOUTH [place] EVERY 8 Medical HOURS Branch NEEDED FOR NAUSEA AND VOMITING ONDANSETRON 0 Yes [id number] TAKE 1 Univers 4 mg tablet 1-28 TABLET BY ity of 00:00: MOUTH [place] EVERY 8 Medical HOURS Branch NEEDED FOR NAUSEA AND VOMITING ONDANSETRON 0 Yes [id number] TAKE 1 Univers 4 mg tablet 1-28 TABLET BY ity of 00:00: MOUTH [place] 00 EVERY 8 Medical HOURS Branch NEEDED FOR NAUSEA AND VOMITING ONDANSETRON 2022-0 Yes [id number] TAKE 1 Univers 4 mg tablet 1-28 TABLET BY ity of 00:00: [facility] 00 EVERY 8 Medical HOURS Branch NEEDED FOR NAUSEA AND VOMITING ONDANSETRON 2022-0 Yes [id number] TAKE 1 Univers 4 mg tablet 1-28 TABLET BY ity of 00:00: [facility] EVERY 8 Medical HOURS Branch NEEDED FOR NAUSEA AND VOMITING ONDANSETRON 2022-0 Yes [id number] TAKE 1 Univers 4 mg tablet 1-28 TABLET BY ity of 00:00: [facility] 00 EVERY 8 Medical HOURS Branch NEEDED FOR NAUSEA AND VOMITING ONDANSETRON 2022-0 Yes [id number] TAKE 1 Univers 4 mg tablet 1-28 TABLET BY ity of 00:00: [facility] 00 EVERY 8 Medical HOURS Branch NEEDED FOR NAUSEA AND VOMITING ONDANSETRON 2022-0 Yes [id number] TAKE 1 Univers 4 mg tablet 1-28 TABLET BY ity of 00:00: [facility] 00 EVERY 8 Medical HOURS Branch NEEDED FOR NAUSEA AND VOMITING fluticasone 2-0 Yes [id number] 2{puff} Inhale 2 Univers propionate 1-12 Puffs ity of (FLOVENT 00:00: every 12 [place] HFA) 110 00 (twelve) Medical mcg/actuati hours. Branch on inhaler fluticasone 2021-0 Yes [id number] 2{puff} Inhale 2 Univers propionate 1-12 Puffs ity of (FLOVENT 00:00: every 12 [place] HFA) 110 00 (twelve) Medical mcg/actuati hours. Branch on inhaler fluticasone 2021-0 Yes [id number] 2{puff} Inhale 2 Univers propionate 1-12 Puffs ity of (FLOVENT 00:00: every 12 [place] HFA) 110 00 (twelve) Medical mcg/actuati hours. Branch on inhaler fluticasone 2-0 Yes [id number] 2{puff} Inhale 2 Univers propionate 1-12 Puffs ity of (FLOVENT 00:00: every 12 [place] HFA) 110 00 (twelve) Medical mcg/actuati hours. Branch on inhaler fluticasone 2021-0 Yes [id number] 2{puff} Inhale 2 Univers propionate 1-12 Puffs ity of (FLOVENT 00:00: every 12 [place] HFA) 110 00 (twelve) Medical mcg/actuati hours. Branch on inhaler fluticasone Yes [id number] 2{puff} Inhale 2 Univers propionate 1-12 Puffs ity of (FLOVENT 00:00: every 12 [place] HFA) 110 00 (twelve) Medical mcg/actuati hours. Branch on inhaler fluticasone Yes [id number] 2{puff} Inhale 2 Univers propionate 1-12 Puffs ity of (FLOVENT 00:00: every 12 [place] HFA) 110 00 (twelve) Medical mcg/actuati hours. Branch on inhaler fluticasone Yes [id number] 2{puff} Inhale 2 Univers propionate 1-12 Puffs ity of (FLOVENT 00:00: every 12 [place] HFA) 110 00 (twelve) Medical mcg/actuati hours. Branch on inhaler fluticasone Yes [id number] 2{puff} Inhale 2 Univers propionate 1-12 Puffs ity of (FLOVENT 00:00: every 12 [place] HFA) 110 00 (twelve) Medical mcg/actuati hours. Branch on inhaler fluticasone Yes [id number] 2{puff} Inhale 2 Univers propionate 1-12 Puffs ity of (FLOVENT 00:00: every 12 [place] HFA) 110 00 (twelve) Medical mcg/actuati hours. Branch on inhaler predniSONE 0 Yes [id number] 20mg Take 1 U nivers 20 mg 1-11 tablet by ity of tablet 00:00: mouth [place] 00 daily. Medical Branch amoxicillin 2021-0 Yes [id number] 875mg Take 1 Univers 875 mg 1-11 tablet by ity of tablet 00:00: mouth 2 [place] 00 (two) Medical times Branch daily. albuterol 0 Yes [id number] 2{puff} Inhale 2 Univers 90 1-11 Puffs ity of mcg/actuati 00:00: every 6 [place] on inhaler 00 (six) Medical hours as Branch needed for Wheezing or Shortness of Breath. lisinopriL 0 Yes [id number] 20mg Take 1 U nivers 20 mg 1-11 tablet by ity of tablet 00:00: mouth (two) Medical times Branch daily. hydrALAZINE 2021-0 Yes [id number] 50mg Take 1 Univers 50 mg 1-11 tablet by ity of tablet 00:00: mouth (two) Medical times Branch daily. DULoxetine 2021-0 Yes [id number] 60mg Take 1 Univers 60 mg 1-11 capsule by ity of capsule 00:00: mouth (two) Medical times Branch daily. carvediloL 2021-0 Yes [id number] 25mg Take 1 U nivers 25 mg 1-11 tablet by ity of tablet 00:00: mouth (two) Medical times Branch daily with meals. zolpidem 10 2021-0 Yes [id number] 10mg Take 1 Univers mg tablet 1-11 tablet by ity o f 00:00: mouth at bedtime. Medical Branch albuterol 2021-0 Yes [id number] 2.5mg Inhale 3 Univers 2.5 mg /3 1-11 mL every 4 ity of mL (0.083 00:00: (four) %) 00 hours as Medical nebulizer needed for Bran ch solution Wheezing or Shortness of Breath. predniSONE 2021-0 Yes [id number] 20mg Take 1 U nivers 20 mg 1-11 tablet by ity of tablet 00:00: mouth daily. Medical Branch amoxicillin 2021-0 Yes [id number] 875mg Take 1 Univers 875 mg 1-11 tablet by ity of tablet 00:00: mouth (two) Medical times Branch daily. albuterol 2021-0 Yes [id number] 2{puff} Inhale 2 Univers 90 1-11 Puffs ity of mcg/actuati 00:00: every 6 [place] on inhaler 00 (six) Medical hours as Branch needed for Wheezing or Shortness of Breath. lisinopriL 2021-0 Yes [id number] 20mg Take 1 U nivers 20 mg 1-11 tablet by ity of tablet 00:00: mouth (two) Medical times Branch daily. hydrALAZINE 2021-0 Yes [id number] 50mg Take 1 Univers 50 mg 1-11 tablet by ity of tablet 00:00: mouth (two) Medical times Branch daily. DULoxetine 2021-0 Yes [id number] 60mg Take 1 Univers 60 mg 1-11 capsule by ity of capsule 00:00: mouth (two) Medical times Branch daily. carvediloL 2021-0 Yes [id number] 25mg Take 1 U nivers 25 mg 1-11 tablet by ity of tablet 00:00: mouth (two) Medical times Branch daily with meals. zolpidem 10 2021-0 Yes [id number] 10mg Take 1 Univers mg tablet 1-11 tablet by ity o f 00:00: mouth at bedtime. Medical Branch albuterol 2021-0 Yes [id number] 2.5mg Inhale 3 Univers 2.5 mg /3 1-11 mL every 4 ity of mL (0.083 00:00: (four) [facility]) 00 hours as Medical nebulizer needed for Bran ch solution Wheezing or Shortness of Breath. predniSONE 2021-0 Yes [id number] 20mg Take 1 U nivers 20 mg 1-11 tablet by ity of tablet 00:00: mouth daily. Medical Branch amoxicillin 2021-0 Yes [id number] 875mg Take 1 Univers 875 mg 1-11 tablet by ity of tablet 00:00: mouth (two) Medical times Branch daily. albuterol 2021-0 Yes [id number] 2{puff} Inhale 2 Univers 90 1-11 Puffs ity of mcg/actuati 00:00: every 6 [place] as on inhaler 00 (six) Medical hours as Branch needed for Wheezing or Shortness of Breath. lisinopriL 2021-0 Yes [id number] 20mg Take 1 U nivers 20 mg 1-11 tablet by ity of tablet 00:00: mouth (two) Medical times Branch daily. hydrALAZINE 2021-0 Yes [id number] 50mg Take 1 Univers 50 mg 1-11 tablet by ity of tablet 00:00: mouth (two) Medical times Branch daily. DULoxetine 2021-0 Yes [id number] 60mg Take 1 Univers 60 mg 1-11 capsule by ity of capsule 00:00: mouth (two) Medical times Branch daily. carvediloL 2021-0 Yes [id number] 25mg Take 1 U nivers 25 mg 1-11 tablet by ity of tablet 00:00: mouth (two) Medical times Branch daily with meals. albuterol 202-0 Yes [id number] 2.5mg Inhale 3 Univers 2.5 mg /3 1-11 mL every 4 ity of mL (0.083 00:00: (four) [place] %) 00 hours as Medical nebulizer needed for Bran ch solution Wheezing or Shortness of Breath. predniSONE 2021-0 Yes [id number] 20mg Take 1 U nivers 20 mg 1-11 tablet by ity of tablet 00:00: mouth daily. Medical Branch amoxicillin 2021-0 Yes [id number] 875mg Take 1 Univers 875 mg 1-11 tablet by ity of tablet 00:00: mouth (two) Medical times Branch daily. albuterol 2021-0 Yes [id number] 2{puff} Inhale 2 Univers 90 1-11 Puffs ity of mcg/actuati 00:00: every 6 [place] as on inhaler 00 (six) Medical hours as Branch needed for Wheezing or Shortness of Breath. lisinopriL 2021-0 Yes [id number] 20mg Take 1 U nivers 20 mg 1-11 tablet by ity of tablet 00:00: mouth (two) Medical times Branch daily. hydrALAZINE 2021-0 Yes [id number] 50mg Take 1 Univers 50 mg 1-11 tablet by ity of tablet 00:00: mouth (two) Medical times Branch daily. DULoxetine 2021-0 Yes [id number] 60mg Take 1 Univers 60 mg 1-11 capsule by ity of capsule 00:00: mouth (two) Medical times Branch daily. carvediloL 2021-0 Yes [id number] 25mg Take 1 U nivers 25 mg 1-11 tablet by ity of tablet 00:00: mouth (two) Medical times Branch daily with meals. albuterol 2021-0 Yes [id number] 2.5mg Inhale 3 Univers 2.5 mg /3 1-11 mL every 4 ity of mL (0.083 00:00: (four) [place] %) 00 hours as Medical nebulizer needed for Bran ch solution Wheezing or Shortness of Breath. predniSONE 2021-0 Yes [id number] 20mg Take 1 U nivers 20 mg 1-11 tablet by ity of tablet 00:00: mouth daily. Medical Branch amoxicillin 2021-0 Yes [id number] 875mg Take 1 Univers 875 mg 1-11 tablet by ity of tablet 00:00: mouth (two) Medical times Branch daily. albuterol 2021-0 Yes [id number] 2{puff} Inhale 2 Univers 90 1-11 Puffs ity of mcg/actuati 00:00: every 6 [place] as on inhaler (six) Medical hours as Branch needed for Wheezing or Shortness of Breath. lisinopriL 2021-0 Yes [id number] 20mg Take 1 U nivers 20 mg 1-11 tablet by ity of tablet 00:00: mouth (two) Medical times Branch daily. hydrALAZINE 2021-0 Yes [id number] 50mg Take 1 Univers 50 mg 1-11 tablet by ity of tablet 00:00: mouth (two) Medical times Branch daily. DULoxetine 2021-0 Yes [id number] 60mg Take 1 Univers 60 mg 1-11 capsule by ity of capsule 00:00: mouth (two) Medical times Branch daily. carvediloL 2021-0 Yes [id number] 25mg Take 1 U nivers 25 mg 1-11 tablet by ity of tablet 00:00: mouth (two) Medical times Branch daily with meals. albuterol 2021-0 Yes [id number] 2.5mg Inhale 3 Univers 2.5 mg /3 1-11 mL every 4 ity of mL (0.083 00:00: (four) [place] %) 00 hours as Medical nebulizer needed for Bran ch solution Wheezing or Shortness of Breath. predniSONE 2021-0 Yes [id number] 20mg Take 1 U nivers 20 mg 1-11 tablet by ity of tablet 00:00: mouth daily. Medical Branch amoxicillin 2021-0 Yes [id number] 875mg Take 1 Univers 875 mg 1-11 tablet by ity of tablet 00:00: mouth (two) Medical times Branch daily. albuterol 2021-0 Yes [id number] 2{puff} Inhale 2 Univers 90 1-11 Puffs ity of mcg/actuati 00:00: every 6 [place] as on inhaler 00 (six) Medical hours as Branch needed for Wheezing or Shortness of Breath. lisinopriL 202-0 Yes [id number] 20mg Take 1 U nivers 20 mg 1-11 tablet by ity of tablet 00:00: mouth (two) Medical times Branch daily. hydrALAZINE 2021-0 Yes [id number] 50mg Take 1 Univers 50 mg 1-11 tablet by ity of tablet 00:00: mouth (two) Medical times Branch daily. DULoxetine 2021-0 Yes [id number] 60mg Take 1 Univers 60 mg 1-11 capsule by ity of capsule 00:00: mouth (two) Medical times Branch daily. carvediloL 2021-0 Yes [id number] 25mg Take 1 U nivers 25 mg 1-11 tablet by ity of tablet 00:00: mouth (two) Medical times Branch daily with meals. albuterol 2021-0 Yes [id number] 2.5mg Inhale 3 Univers 2.5 mg /3 1-11 mL every 4 ity of mL (0.083 00:00: (four) [place] %) 00 hours as Medical nebulizer needed for Bran ch solution Wheezing or Shortness of Breath. predniSONE 2021-0 Yes [id number] 20mg Take 1 U nivers 20 mg 1-11 tablet by ity of tablet 00:00: mouth 00 daily. Medical Branch amoxicillin 2021-0 Yes [id number] 875mg Take 1 Univers 875 mg 1-11 tablet by ity of tablet 00:00: mouth (two) Medical times Branch daily. albuterol 2021-0 Yes [id number] 2{puff} Inhale 2 Univers 90 1-11 Puffs ity of mcg/actuati 00:00: every 6 [place] as on inhaler 00 (six) Medical hours as Branch needed for Wheezing or Shortness of Breath. lisinopriL 2021-0 Yes [id number] 20mg Take 1 U nivers 20 mg 1-11 tablet by ity of tablet 00:00: mouth (two) Medical times Branch daily. hydrALAZINE 2021-0 Yes [id number] 50mg Take 1 Univers 50 mg 1-11 tablet by ity of tablet 00:00: mouth (two) Medical times Branch daily. DULoxetine 2021-0 Yes [id number] 60mg Take 1 Univers 60 mg 1-11 capsule by ity of capsule 00:00: mouth (two) Medical times Branch daily. carvediloL 2021-0 Yes [id number] 25mg Take 1 U nivers 25 mg 1-11 tablet by ity of tablet 00:00: mouth (two) Medical times Branch daily with meals. albuterol 2021-0 Yes [id number] 2.5mg Inhale 3 [facility] 2.5 mg /3 1-11 mL every 4 ity of mL (0.083 00:00: (four) [place] %) 00 hours as Medical nebulizer needed for Bran ch solution Wheezing or Shortness of Breath. predniSONE 2021-0 Yes [id number] 20mg Take 1 U nivers 20 mg 1-11 tablet by ity of tablet 00:00: mouth daily. Medical Branch amoxicillin 2021-0 Yes [id number] 875mg Take 1 [facility] 875 mg 1-11 tablet by ity of tablet 00:00: mouth (two) Medical times Branch daily. albuterol 2021-0 Yes [id number] 2{puff} Inhale 2 [facility] 90 1-11 Puffs ity of mcg/actuati 00:00: every 6 [place] as on inhaler 00 (six) Medical hours as Branch needed for Wheezing or Shortness of Breath. lisinopriL 2021-0 Yes [id number] 20mg Take 1 U nivers 20 mg 1-11 tablet by ity of tablet 00:00: mouth (two) Medical times Branch daily. hydrALAZINE 2021-0 Yes [id number] 50mg Take 1 [facility] 50 mg 1-11 tablet by ity of tablet 00:00: mouth (two) Medical times Branch daily. DULoxetine 2021-0 Yes [id number] 60mg Take 1 [facility] 60 mg 1-11 capsule by ity of capsule 00:00: mouth (two) Medical times Branch daily. carvediloL 2021-0 Yes [id number] 25mg Take 1 U nivers 25 mg 1-11 tablet by ity of tablet 00:00: mouth (two) Medical times Branch daily with meals. albuterol 2021-0 Yes [id number] 2.5mg Inhale 3 [facility] 2.5 mg /3 1-11 mL every 4 ity of mL (0.083 00:00: (four) [place] %) 00 hours as Medical nebulizer needed for Bran ch solution Wheezing or Shortness of Breath. predniSONE 2021-0 Yes [id number] 20mg Take 1 U nivers 20 mg 1-11 tablet by ity of tablet 00:00: mouth [place] 00 daily. Medical Branch amoxicillin 2021-0 Yes [id number] 875mg Take 1 [facility] 875 mg 1-11 tablet by ity of tablet 00:00: mouth (two) Medical times Branch daily. albuterol 2021-0 Yes [id number] 2{puff} Inhale 2 [facility] 90 1-11 Puffs ity of mcg/actuati 00:00: every 6 [place] as on inhaler 00 (six) Medical hours as Branch needed for Wheezing or Shortness of Breath. hydrALAZINE 2021-0 Yes [id number] 50mg Take 1 [facility] 50 mg 1-11 tablet by ity of tablet 00:00: mouth (two) Medical times Branch daily. carvediloL 2021-0 Yes [id number] 25mg Take 1 U nivers 25 mg 1-11 tablet by ity of tablet 00:00: mouth (two) Medical times Branch daily with meals. albuterol 2021-0 Yes [id number] 2.5mg Inhale 3 [facility] 2.5 mg /3 1-11 mL every 4 ity of mL (0.083 00:00: (four) [place] %) 00 hours as Medical nebulizer needed for Bran ch solution Wheezing or Shortness of Breath. predniSONE 2021-0 Yes [id number] 20mg Take 1 U nivers 20 mg 1-11 tablet by ity of tablet 00:00: mouth 00 daily. Medical Branch amoxicillin 2021-0 Yes [id number] 875mg Take 1 [facility] 875 mg 1-11 tablet by ity of tablet 00:00: mouth (two) Medical times Branch daily. albuterol 2021-0 Yes [id number] 2{puff} Inhale 2 [facility] 90 1-11 Puffs ity of mcg/actuati 00:00: every 6 [place] as on inhaler 00 (six) Medical hours as Branch needed for Wheezing or Shortness of Breath. hydrALAZINE 2021-0 Yes [id number] 50mg Take 1 [facility] 50 mg 1-11 tablet by ity of tablet 00:00: mouth 2 (two) Medical times Branch daily. carvediloL 2021-0 Yes [id number] 25mg Take 1 U nivers 25 mg 1-11 tablet by ity of tablet 00:00: mouth 2 (two) Medical times Branch daily with meals. albuterol 2021-0 Yes [id number] 2.5mg Inhale 3 [facility] 2.5 mg /3 1-11 mL every 4 ity of mL (0.083 00:00: (four) [place] %) 00 hours as Medical nebulizer needed for Bran ch solution Wheezing or Shortness of Breath. predniSONE 2021-0 Yes [id number] 20mg Take 1 [facility] nivers 20 mg 1-11 tablet by ity of tablet 00:00: mouth 00 daily. Medical Branch amoxicillin 0 Yes [id number] 875mg Take 1 [facility] 875 mg 1-11 tablet by ity of tablet 00:00: mouth (two) Medical times Branch daily. albuterol 2021-0 Yes [id number] 2{puff} Inhale 2 [facility] 90 1-11 Puffs ity of mcg/actuati 00:00: every 6 [place] as on inhaler 00 (six) Medical hours as Branch needed for Wheezing or Shortness of Breath. Mometasone- 2021-0 Yes [id number] 2{puff} Inhale 2 [facility] Formoterol 1-11 Puffs 2 ity of (DULERA) 00:00: (two) [place] 200-5 00 times Medical mcg/actuati daily. Branch on inhaler lisinopriL 2021-0 Yes [id number] 20mg Take 1 U nivers 20 mg 1-11 tablet by ity of tablet 00:00: mouth (two) Medical times Branch daily. hydrALAZINE 2021-0 Yes [id number] 50mg Take 1 [facility] 50 mg 1-11 tablet by ity of tablet 00:00: mouth 2 (two) Medical times Branch daily. DULoxetine 2021-0 Yes [id number] 60mg Take 1 [facility] 60 mg 1-11 capsule by ity of capsule 00:00: mouth (two) Medical times Branch daily. carvediloL 2021-0 Yes [id number] 25mg Take 1 U nivers 25 mg 1-11 tablet by ity of tablet 00:00: mouth 2 (two) Medical times Branch daily with meals. zolpidem 10 0 Yes [id number] 10mg Take 1 [facility] mg tablet 1-11 tablet by ity o f 00:00: mouth at [place] bedtime. Medical Branch predniSONE 2021-0 Yes [id number] 20mg Take 1 U nivers 20 mg 1-11 tablet by ity of tablet 00:00: mouth daily. Medical Branch amoxicillin 2021-0 Yes [id number] 875mg Take 1 [facility] 875 mg 1-11 tablet by ity of tablet 00:00: mouth 2 (two) Medical times Branch daily. albuterol 2021- Yes [id number] 2{puff} Inhale 2 [facility] 90 1-11 Puffs ity of mcg/actuati 00:00: every 6 [place] as on inhaler 00 (six) Medical hours as Branch needed for Wheezing or Shortness of Breath. lisinopriL Yes [id number] 20mg Take 1 U nivers 20 mg 1-11 tablet by ity of tablet 00:00: mouth 2 (two) Medical times Branch daily. hydrALAZINE Yes [id number] 50mg Take 1 [facility] 50 mg 1-11 tablet by ity of tablet 00:00: mouth (two) Medical times Branch daily. DULoxetine Yes [id number] 60mg Take 1 [facility] 60 mg 1-11 capsule by ity of capsule 00:00: mouth (two) Medical times Branch daily. carvediloL Yes [id number] 25mg Take 1 U nivers 25 mg 1-11 tablet by ity of tablet 00:00: mouth 2 (two) Medical times Branch daily with meals. zolpidem 10 2021-0 Yes [id number] 10mg Take 1 [facility] mg tablet 1-11 tablet by ity o f 00:00: mouth at [place] bedtime. Medical Branch albuterol 0 Yes [id number] 2.5mg Inhale 3 [facility] 2.5 mg /3 1-11 mL every 4 ity of mL (0.083 00:00: (four) [facility]) 00 hours as Medical nebulizer needed for Bran ch solution Wheezing or Shortness of Breath. lisinopriL 2022- No [id number] 20mg Take 1 [facility] 20 mg 07-29 tablet by ity of tablet 00:00: 00:00 mouth 2 [place] 00 :00 (two) Medical times Branch daily. DULoxetine 2022- No [id number] 60mg Take 1 [facility] 60 mg 07-29 capsule by ity of capsule 00:00: 00:00 mouth 2 [place] 00 :00 (two) Medical times Branch daily. zolpidem 10 2021- No [id number] 10mg Take 1 [facility] mg tablet 07-29 tablet by ity of 00:00: 00:00 mouth at [place] 00 :00 bedtime. Medical Branch Mometasone- 2021- No [id number] 2{puff} Inhale 2 Univers Formoterol 07-29-11 Puffs 2 ity o f (DULERA) 00:00: 00:00 (two) [place] 200-5 00 :00 times Medical mcg/actuati daily. Branch on inhaler albuterol Yes [id number] 2{puff} Inhale 2 [facility] 90 1-07 Puffs ity of mcg/actuati 00:00: every 6 [place] as on inhaler 00 (six) Medical hours as Branch needed for Wheezing or Shortness of Breath. albuterol Yes [id number] 2{puff} Inhale 2 [facility] 90 1-07 Puffs ity of mcg/actuati 00:00: every 6 [place] as on inhaler 00 (six) Medical hours as Branch needed for Wheezing or Shortness of Breath. albuterol Yes [id number] 2{puff} Inhale 2 [facility] 90 1-07 Puffs ity of mcg/actuati 00:00: every 6 [place] as on inhaler 00 (six) Medical hours as Branch needed for Wheezing or Shortness of Breath. albuterol Yes [id number] 2{puff} Inhale 2 [facility] 90 1-07 Puffs ity of mcg/actuati 00:00: every 6 [place] as on inhaler 00 (six) Medical hours as Branch needed for Wheezing or Shortness of Breath. albuterol Yes [id number] 2{puff} Inhale 2 [facility] 90 1-07 Puffs ity of mcg/actuati 00:00: every 6 [place] as on inhaler 00 (six) Medical hours as Branch needed for Wheezing or Shortness of Breath. albuterol Yes [id number] 2{puff} Inhale 2 [facility] 90 1-07 Puffs ity of mcg/actuati 00:00: every 6 [place] as on inhaler 00 (six) Medical hours as Branch needed for Wheezing or Shortness of Breath. albuterol Yes [id number] 2{puff} Inhale 2 [facility] 90 1-07 Puffs ity of mcg/actuati 00:00: every 6 [place] as on inhaler 00 (six) Medical hours as Branch needed for Wheezing or Shortness of Breath. albuterol Yes [id number] 2{puff} Inhale 2 [facility] 90 1-07 Puffs ity of mcg/actuati 00:00: every 6 [place] as on inhaler 00 (six) Medical hours as Branch needed for Wheezing or Shortness of Breath. albuterol Yes [id number] 2{puff} Inhale 2 [facility] 90 1-07 Puffs ity of mcg/actuati 00:00: every 6 [place] as on inhaler 00 (six) Medical hours as Branch needed for Wheezing or Shortness of Breath. albuterol Yes [id number] 2{puff} Inhale 2 [facility] 90 1-07 Puffs ity of mcg/actuati 00:00: every 6 [place] as on inhaler 00 (six) Medical hours as Branch needed for Wheezing or Shortness of Breath. albuterol Yes [id number] 2{puff} Inhale 2 [facility] 90 1-07 Puffs ity of mcg/actuati 00:00: every 6 [place] as on inhaler 00 (six) Medical hours as Branch needed for Wheezing or Shortness of Breath. albuterol Yes [id number] 2{puff} Inhale 2 [facility] 90 1-07 Puffs ity of mcg/actuati 00:00: every 6 [place] as on inhaler 00 (six) Medical hours as Branch needed for Wheezing or Shortness of Breath. ZOLPIDEM 10 2020-07- No [id number] 10mg TAKE 1 [facility] mg tablet 2-13 - TABLET BY ity of 00:00: 00:00 MOUTH AT [place] 00 :00 BEDTIME. Medical Branch ONDANSETRON 2020-0 Yes [id number] TAKE 1 [facility] 4 mg tablet 9-17 TABLET BY ity of 00:00: MOUTH [place] 00 EVERY 8 Medical HOURS Branch NEEDED FOR NAUSEA AND VOMITING ONDANSETRON 2020-0 Yes [id number] TAKE 1 [facility] 4 mg tablet 9-17 TABLET BY ity of 00:00: MOUTH [place] 00 EVERY 8 Medical HOURS Branch NEEDED FOR NAUSEA AND VOMITING ONDANSETRON 2020-0 Yes [id number] TAKE 1 [facility] 4 mg tablet 9-17 TABLET BY ity of 00:00: MOUTH [place] 00 EVERY 8 Medical HOURS Branch NEEDED FOR NAUSEA AND VOMITING ONDANSETRON 2020-0 2- No [id number] TAKE 1 Univers 4 mg tablet 9-17 08-15 TABLET BY it y of 00:00: 00:00 MOUTH [place] 00 :00 EVERY 8 Medical HOURS Branch NEEDED FOR NAUSEA AND VOMITING buprenorphi 2020-[address] 150 Univers ne HCL 150 6-14 mg in ity of mcg Film 09:07: [place] [address] (two) Medical times Branch daily. buprenorphi 2020-[address] 150 Univers ne HCL 150 6-14 mg in ity of mcg Film 09:07: [place] [address] (two) Medical times Branch daily. buprenorphi 2020-[address] 150 Univers ne HCL 150 6-14 mg in ity of mcg Film 09:07: [place] [address] (two) Medical times Branch daily. buprenorphi 2020-[address] 150 Univers ne HCL 150 6-14 mg in ity of mcg Film 09:07: [place] [address] (two) Medical times Branch daily. buprenorphi 2020-[address] 150 Univers ne HCL 150 6-14 mg in ity of mcg Film 09:07: [place] [address] (two) Medical times Branch daily. buprenorphi 2020-[address] 150 Univers ne HCL 150 6-14 mg in ity of mcg Film 09:07: [place] [address] (two) Medical times Branch daily. buprenorphi 2020-[address] 150 Univers ne HCL 150 6-14 mg in ity of mcg Film 09:07: cheeks 2 [place] [address] (two) Medical times Branch daily. buprenorphi 2020-[address] 150 Univers ne HCL 150 6-14 mg in ity of mcg Film 09:07: cheeks 2 [place] 34 (two) Medical times Branch daily. buprenorphi 2020-[address] 150 Univers ne HCL 150 6-14 mg in ity of mcg Film 09:07: cheeks 2 [place] [address] (two) Medical times Branch daily. buprenorphi 2020-[address] 150 Univers ne HCL 150 6-14 mg in ity of mcg Film 09:07: cheeks 2 [place] [address] (two) Medical times Branch daily. buprenorphi 2020-[address] 150 Univers ne HCL 150 6-14 mg in ity of mcg Film 09:07: cheeks 2 [place] [address] (two) Medical times Branch daily. buprenorphi 2020-[address] 150 Univers ne HCL 150 6-14 mg in ity of mcg Film 09:07: cheeks 2 [place] [address] (two) Medical times Branch daily. lisinopriL 2021- No [id number] 20mg Take 1 [facility] 20 mg 6-07-29 tablet by ity of tablet 00:00: 00:00 mouth 2 [place] 00 :00 (two) Medical times Branch daily. hydrALAZINE 2021- No [id number] 50mg Take 1 [facility] 50 mg -07-29 tablet by ity of tablet 00:00: 00:00 mouth 2 [place] 00 :00 (two) Medical times Branch daily. DULoxetine 2021- No [id number] 60mg Take 1 [facility] 60 mg 6-07-29 capsule by ity of capsule 00:00: 00:00 mouth 2 [place] 00 :00 (two) Medical times Branch daily. carvediloL 2021- No [id number] 25mg Take 1 [facility] 25 mg 6-07-29 tablet by ity of tablet 00:00: 00:00 mouth 2 [place] 00 :00 (two) Medical times Branch daily with meals. aspirin 2019-07 Yes 325mg Take 325 [facility] [...] mouth [place] 56 daily. Medical Branch cloNIDine 2019-2021- No [id number] .2mg Take 1 U nivers 0.2 mg [...] by mouth ity of tablet 12:31: daily. [address] memantine 0 Yes 10mg Take 10 mg Un eli 10 mg 9-13 by mouth ity of tablet 12:31: daily. [address] memantine 0 Yes 10mg Take 10 mg Un eli 10 mg 9-13 by mouth ity of tablet 12:31: daily. [address] memantine 0 Yes 10mg Take 10 mg Un eli 10 mg 9-13 by mouth ity of tablet 12:31: daily. [address] memantine 2018- Yes 10mg Take 10 mg Un eli 10 mg 9-13 by mouth ity of tablet 12:31: daily. [address] memantine 0 Yes 10mg Take 10 mg Un eli 10 mg 9-13 by mouth ity of tablet 12:31: daily. [address] memantine Yes 10mg Take 10 mg Un eli 10 mg 9-13 by mouth ity of tablet 12:31: daily. [address] memantine Yes 10mg Take 10 mg Un eli 10 mg 9-13 by mouth ity of tablet 12:31: daily. [address] memantine Yes 10mg Take 10 mg Un eli 10 mg 9-13 by mouth ity of tablet 12:31: daily. [address] memantine Yes 10mg Take 10 mg Un eli 10 mg 9-13 by mouth ity of tablet 12:31: daily. [address] memantine Yes 10mg Take 10 mg Un eli 10 mg 9-13 by mouth ity of tablet 12:31: daily. [address] memantine Yes 10mg Take 10 mg Un eli 10 mg 9-13 by mouth ity of tablet 12:31: daily. [address] carvedilol 0 Yes 25mg Take 25 mg U nivers 25 mg 8-23 by mouth. ity of tablet 13:24: [address] lisinopril 2019-0 Yes 20mg Take 20 mg U nivers 20 mg 8-23 by mouth. ity of tablet 13:24: [address] DULoxetine 2019-0 Yes 60mg Take 60 mg U nivers 60 mg 8-23 by mouth. ity of capsule 13:24: [address] donepezil 5 2019-0 Yes 5mg Take 5 mg U nivers mg tablet 8-23 by mouth. ity o f 13:24: [address] hydralAZINE 2019-0 Yes 50mg Take 50 mg Univers 50 mg 8-23 by mouth 2 ity of tablet 13:24: (two) [address] daily. Branch memantine Yes 10mg Take 10 mg Un eli 10 mg 8-23 by mouth ity of tablet 13:24: daily. [address] zolpidem 2019-0 Yes Ambien 10 Univ ers (AMBIEN) 10 8-23 mg tablet ity of mg tablet 13:24: Take 1 [place] 20 tablet as Medical needed by Branch oral route. cloniDINE 2019-0 Yes .2mg Take 0.2 Univ ers 0.2 mg 8-23 mg by ity of tablet 13:24: mouth 3 [place] [address] (three) Medical times [place] daily. carvedilol 2019-0 Yes 25mg Take 25 mg U nivers 25 mg 8-23 by mouth. ity of tablet 13:24: [address] lisinopril 2019-0 Yes 20mg Take 20 mg U nivers 20 mg 8-23 by mouth. ity of tablet 13:24: [address] DULoxetine 2019-0 Yes 60mg Take 60 mg U nivers 60 mg 8-23 by mouth. ity of capsule 13:24: [address] donepezil 5 2018-0 Yes 5mg Take 5 mg U nivers mg tablet 8-23 by mouth. ity o f 13:24: [address] hydralAZINE 2018-0 Yes 50mg Take 50 mg Univers 50 mg 8-23 by mouth 2 ity of tablet 13:24: (two) [place] 20 times Medical daily. Branch memantine 2019-0 Yes 10mg Take 10 mg Un eli 10 mg 8-23 by mouth ity of tablet 13:24: daily. [address] zolpidem 2019-0 Yes Ambien 10 Univ ers (AMBIEN) 10 8-23 mg tablet ity of mg tablet 13:24: Take 1 [place] 20 tablet as Medical needed by Branch oral route. cloniDINE 2019-0 Yes .2mg Take 0.2 Univ ers 0.2 mg 8-23 mg by ity of tablet 13:24: mouth 3 [place] [address] (three) Medical times [place] daily. carvedilol 2019-0 Yes 25mg Take 25 mg U nivers 25 mg 8-23 by mouth. ity of tablet 13:24: [address] lisinopril 2019-0 Yes 20mg Take 20 mg U nivers 20 mg 8-23 by mouth. ity of tablet 13:24: [address] DULoxetine 2019-0 Yes 60mg Take 60 mg U nivers 60 mg 8-23 by mouth. ity of capsule 13:24: [address] donepezil 5 2019- Yes 5mg Take 5 mg U nivers mg tablet 8-23 by mouth. ity o f 13:24: [address] hydralAZINE Yes 50mg Take 50 mg Univers 50 mg 8-23 by mouth 2 ity of tablet 13:24: (two) [place] 20 times Medical daily. Branch memantine Yes 10mg Take 10 mg Un eli 10 mg 8-23 by mouth ity of tablet 13:24: daily. [address] zolpidem Yes Ambien 10 Univ ers (AMBIEN) 10 8-23 mg tablet ity of mg tablet 13:24: Take 1 [place] 20 tablet as Medical needed by Branch oral route. cloniDINE Yes .2mg Take 0.2 Univ ers 0.2 mg 8-23 mg by ity of tablet 13:24: mouth 3 [place] 20 (three) Medical times Branch daily. acetaminoph Yes [id number] 1{tbl} Take 1 Univers en-codeine 8-23 tablet by ity of (TYLENOL-CO 00:00: mouth [place] DEINE #3) 00 every 6 Medical 300-30 mg (six) Branch tablet hours as needed (pain). acetaminoph Yes [id number] 1{tbl} Take 1 Univers en-codeine 8-23 tablet by ity of (TYLENOL-CO 00:00: mouth [place] DEINE #3) 00 every 6 Medical 300-30 mg (six) Branch tablet hours as needed (pain). acetaminoph Yes [id number] 1{tbl} Take 1 Univers en-codeine 8-23 tablet [...] Take 20 mg U nivers 20 mg 01 by mouth. ity of tablet 13:28: [address] DULoxetine 2017-07 Yes 60mg Take 60 mg U nivers 60 mg 07-19 by mouth. ity of capsule 13:28: [address] donepezil 5 2017-07 Yes 5mg Take 5 mg U nivers mg tablet 01 by mouth. ity o f 13:28: [address] hydralAZINE 2017-07 Yes 50mg Take 50 mg Univers 50 mg 01 by mouth 2 ity of tablet 13:28: (two) [place] [address] times [facility] daily. Branch memantine 2017-07 Yes 10mg Take 10 mg Un eli 10 mg 01 by mouth ity of tablet 13:28: daily. [address] carvedilol 2017-07 Yes 25mg Take 25 mg U nivers 25 mg 07-19 by mouth. ity of tablet 13:28: [address] varenicline 2017-07 Yes Take one Un eli (CHANTIX 1-01 0.5mg tab ity of STARTING 00:00: by mouth [place] [facility]) 00 once daily Med ical 0.5 mg for 3 Branch (11)- 1 mg days, then (42) tablet one 0.5mg tab twice daily for 4 days, then one 1mg tab twice daily. varenicline 2017-07 Yes 1mg Take 1 Univ ers (CHANTIX 1-01 tablet by ity of CONTINUING 00:00: mouth 2 [facility]) 00 (two) Medical 1 mg tablet times Branch daily. varenicline 2017-07- No Take one U nivers (CHANTIX -03-10 0.5mg tab ity o f STARTING 00:00: 00:00 by mouth [facility] ) 00 :00 once daily Med ical 0.5 mg for 3 Branch (11)- 1 mg days, then (42) tablet one 0.5mg tab twice daily for 4 days, then one 1mg tab twice daily. varenicline 2017-07- No 1mg Take 1 Uni vers (CHANTIX 1-03-10 tablet by ity o f CONTINUING 00:00: 00:00 mouth 2 BOX) 00 :00 (two) Medical 1 mg tablet times Branch daily. varenicline 2017-07- No Take one U nivers (CHANTIX 07-19 0.5mg tab ity o f STARTING 00:00: 00:00 [place] BOX[place] 00 :00 once daily Med ical [...] hours for Bran ch 10 days. sulfamethox 2016-07 Yes Take one [facility] azole-trime 0-03 tablet by [facility] thoprim 00:00: mouth Medical (BACTRIM 00 every 12 Center DS) 800-160 hours for mg per 10 days. tablet sulfamethox 2016-07- No Take one U nivers azole-trime 0-03 -23 tablet by it y of thoprim 00:00: 00:00 mouth [place] 800-160 mg 00 :00 every 12 Medic al per tablet hours for Bran ch 10 days. sulfamethox 2016-07- No Take one U nivers azole-trime 0-03 -23 tablet by it y of thoprim 00:00: 00:00 mouth [place] 800-160 mg 00 :00 every 12 Medic al per tablet hours for Bran ch 10 days. carvedilol 2016- Yes 25mg Take [address] [facility] (COREG) 25 9- by mouth 2 [facility] MG tablet 15:31: (two) Medical 10 times Center daily with breakfast and dinner. lisinopril 2017-0 Yes 20mg Q.5D Take [address] [facility] (PRINIVIL,Z 9- by mouth 2 [facility] ESTRIL) 20 15:31: (two) Medica l MG tablet 10 times Center daily. DULoxetine 2017- Yes 60mg Q.5D Take [address] [facility] (CYMBALTA) 04-16 by mouth 2 [facility] 60 MG 15:31: (two) Medical capsule 10 times Center daily. donepezil 2017-0 Yes 5mg QD Take [address] [facility] (ARICEPT) 5 04-16 by mouth [facility] MG tablet 15:31: nightly. Medi manuel 10 Center zolpidem 2016-0 Yes 10mg Take [address] [facility] (AMBIEN) 10 04-16 by mouth [facility] mg tablet 15:31: every Medical 10 night as Center needed for Insomnia. HYDROcodone Yes 10mg Take [address] [facility] bitartrate 04-16 by mouth [facility] (ZOHYDRO 15:31: every 12 Medic al ER) 10 mg 10 (twelve) Center CR12 hours. oxyCODONE-a Yes 1{tbl} Take [address] cetaminophe 04-16 tablet by [facility] n 15:31: mouth Medical (PERCOCET) 10 every 4 Center 10-325 mg (four) per tablet hours as needed for Pain. Multi Multi No 1{table QD Multi Vitamin - Vitamin - t} Vitamin - Coreg 12.5 Coreg 12.5 No 1{table BID Coreg 12.5 MG MG t_with_ MG food} Lisinopril Lisinopril No 1{table QD Lisinopril 20 MG 20 MG t} 20 MG metFORMIN metFORMIN No 1{table QD metFORMIN HCl 500 MG HCl 500 MG t_with_ HCl 500 MG a_meal} Cymbalta 60 Cymbalta 60 No 1{capsu QD Cymbalta MG MG le} 60 MG Lisinopril Lisinopril No 1{table QD Lisinopril 20 MG 20 MG t} 20 MG Coreg 12.5 Coreg 12.5 No 1{table BID Coreg 12.5 MG MG t_with_ MG food} Multi Multi No 1{table QD Multi Vitamin - Vitamin - t} Vitamin - Cymbalta 60 Cymbalta 60 No 1{capsu QD Cymbalta MG MG le} 60 MG metFORMIN metFORMIN No 1{table QD metFORMIN HCl 500 MG HCl 500 MG t_with_ HCl 500 MG a_meal} Lisinopril Lisinopril No 1{table QD Lisinopril 20 MG 20 MG t} 20 MG Coreg 12.5 Coreg 12.5 No 1{table BID Coreg 12.5 MG MG t_with_ MG food} Multi Multi No 1{table QD Multi Vitamin - Vitamin - t} Vitamin - Cymbalta 60 Cymbalta 60 No 1{capsu QD Cymbalta MG MG le} 60 MG metFORMIN metFORMIN No 1{table QD metFORMIN HCl 500 MG HCl 500 MG t_with_ HCl 500 MG a_meal} Multi Multi No 1{table QD Multi Vitamin - Vitamin - t} Vitamin - Coreg 12.5 Coreg 12.5 No 1{table BID Coreg 12.5 MG MG t_with_ MG food} Lisinopril Lisinopril No 1{table QD Lisinopril 20 MG 20 MG t} 20 MG metFORMIN metFORMIN No 1{table QD metFORMIN HCl 500 MG HCl 500 MG t_with_ HCl 500 MG a_meal} Cymbalta 60 Cymbalta 60 No 1{capsu QD Cymbalta MG MG le} 60 MG Coreg 12.5 Coreg 12.5 No 1{table BID Coreg 12.5 MG MG t_with_ MG food} Lisinopril Lisinopril No 1{table QD Lisinopril 20 MG 20 MG t} 20 MG Multi Multi No 1{table QD Multi Vitamin - Vitamin - t} Vitamin - Cymbalta 60 Cymbalta 60 No 1{capsu QD Cymbalta MG MG le} 60 MG metFORMIN metFORMIN No 1{table QD metFORMIN HCl 500 MG HCl 500 MG t_with_ HCl 500 MG a_meal} Immunizations Ordered Filled Immunization Date Status Comments [facility] e Immunization Name Name Influenza Virus 2020-07-01 Completed Universit y of Vaccine Quad .5 mL 00:00:00 [facility] 6+ MO Branch Influenza Virus 2020-07-01 Completed Universit y of Vaccine Quad .5 mL 00:00:00 [facility] 6+ MO Branch Influenza Virus 2020-07-01 Completed Universit y of Vaccine Quad .5 mL 00:00:00 [facility] 6+ MO Branch Influenza Virus 2020-07-01 Completed Universit y of Vaccine Quad .5 mL 00:00:00 [facility] 6+ MO Branch Influenza Virus 2020-07-01 Completed Universit y of Vaccine Quad .5 mL 00:00:00 [facility] 6+ MO Branch Influenza Virus 2020-07-01 Completed Universit y of Vaccine Quad .5 mL 00:00:00 [place] [facility] 6+ MO Branch Influenza Virus 2020-07-01 Completed Universit y of Vaccine Quad .5 mL 00:00:00 [place] [facility] IM 6+ MO Branch Influenza Virus 2020-07-01 Completed Universit y of Vaccine Quad .5 mL 00:00:00 [place] [facility] IM 6+ MO Branch Influenza Virus 2020-07-01 Completed Universit y of Vaccine Quad .5 mL 00:00:00 [place] [facility] IM 6+ MO Branch Influenza Virus 2020-07-01 Completed Universit y of Vaccine Quad .5 mL 00:00:00 [place] [facility] IM 6+ MO Branch Influenza Virus 2020-07-01 Completed Universit y of Vaccine Quad .5 mL 00:00:00 [place] [facility] IM 6+ MO Branch Influenza Virus 2020-07-01 Completed Universit y of Vaccine Quad .5 mL 00:00:00 [place] [facility] IM 6+ MO Branch Influenza Virus 2019-09-04 Completed Universit y of Vaccine Quad .5 mL 00:00:00 [place] [facility] IM 6+ MO Branch TDAP (ADACEL) 2019-09-04 Completed University of VACCINE 00:00:00 [facility] [place] Influenza Virus 2019-09-04 Completed Universit y of Vaccine Quad .5 mL 00:00:00 [place] [facility] IM 6+ MO Branch TDAP (ADACEL) 2019-09-04 Completed University of VACCINE 00:00:00 [facility] [place] Influenza Virus 2019-09-04 Completed Universit y of Vaccine Quad .5 mL 00:00:00 [facility] 6+ MO Branch TDAP (ADACEL) 2019-09-04 Completed University of VACCINE 00:00:00 [facility] Influenza Virus 2019-09-04 Completed Universit y of Vaccine Quad .5 mL 00:00:00 [facility] 6+ MO Branch TDAP (ADACEL) 2019-09-04 Completed University of VACCINE 00:00:00 [facility] Influenza Virus 2019-09-04 Completed Universit y of Vaccine Quad .5 mL 00:00:00 [facility] 6+ MO Branch TDAP (ADACEL) 2019-09-04 Completed University of VACCINE 00:00:00 [facility] Influenza Virus 2019-09-04 Completed Universit y of Vaccine Quad .5 mL 00:00:00 [facility] 6+ MO Branch TDAP (ADACEL) 2019-09-04 Completed University of VACCINE 00:00:00 [facility] Influenza Virus 2019-09-04 Completed Universit y of Vaccine Quad .5 mL 00:00:00 [facility] 6+ MO Branch TDAP (ADACEL) 2019-09-04 Completed University of VACCINE 00:00:00 [facility] Influenza Virus 2019-09-04 Completed Universit y of Vaccine Quad .5 mL 00:00:00 [facility] 6+ MO Branch TDAP (ADACEL) 2019-09-04 Completed University of VACCINE 00:00:00 [facility] Influenza Virus 2019-09-04 Completed Universit y of Vaccine Quad .5 mL 00:00:00 [facility] IM 6+ MO Branch TDAP (ADACEL) 2019-09-04 Completed University of VACCINE 00:00:00 [facility] Influenza Virus 2019-09-04 Completed Universit y of Vaccine Quad .5 mL 00:00:00 [facility] IM 6+ MO Branch TDAP (ADACEL) 2019-09-04 Completed University of VACCINE 00:00:00 [facility] Influenza Virus 2019-09-04 Completed Universit y of Vaccine Quad .5 mL 00:00:00 [facility] IM 6+ MO Branch TDAP (ADACEL) 2019-09-04 Completed University of VACCINE 00:00:00 [facility] Influenza Virus 2019-09-04 Completed Universit y of Vaccine Quad .5 mL 00:00:00 [facility] 6+ MO Branch TDAP (ADACEL) 2019-09-04 Completed University of VACCINE 00:00:00 [facility] Vital Signs Vital Name Observation Time Observation Value Comments Source Systolic blood 2022-07-04 21:09:00 164 mm[Hg] Univer sity of pressure [facility] Diastolic blood 2022-07-04 21:09:00 83 mm[Hg] Unive rsity of pressure [facility] Heart rate 2022-07-04 21:09:00 85 /min [facility] Body temperature 2022-07-04 21:09:00 37.06 Danitza [facility] Body height 2022-07-04 21:09:00 162.6 cm [facility] Body weight 2022-07-04 21:09:00 96.752 kg [facility] BMI 2022-07-04 21:09:00 36.61 kg/m2 [facility] Oxygen saturation in 2022-07-04 21:09:00 96 /min University Arterial blood by [facility] Pulse oximetry Branch blood pressure 2022-06-08 15:30:00 147 mm[Hg] Common [facility] - systolic [facility] blood pressure 2022-06-08 15:30:00 67 mm[Hg] Common [facility] - diastolic [facility] height 2022-06-08 15:30:00 64 [in_i] Common [facility] weight 2022-06-08 15:30:00 200 [lb_av] [facility] temperature 2022-06-08 15:30:00 98.3 [degF] [facility] bmi 2022-06-08 15:30:00 34.33 kg/m2 [facility] oximetry 2022-06-08 15:30:00 99 % [facility] respiratory rate 2022-06-08 15:30:00 20 /min Comm on [facility] height 2022-04-23 15:30:00 64 [in_i] [facility] weight 2022-04-23 15:30:00 210 [lb_av] [facility] temperature 2022-04-23 15:30:00 97.7 [degF] [facility] bmi 2022-04-23 15:30:00 36.04 kg/m2 [facility] oximetry 2022-04-23 15:30:00 99 % [facility] blood pressure 2022-04-23 15:30:00 134 mm[Hg] Common [facility] - systolic [facility] blood pressure 2022-04-23 15:30:00 84 mm[Hg] Common [facility] - diastolic [facility] Systolic blood 2022-02-15 20:19:00 132 mm[Hg] Univer sity of pressure [facility] Diastolic blood 2022-02-15 20:19:00 65 mm[Hg] Unive rsity of pressure [facility] Heart rate 2022-02-15 20:18:00 72 /min Universi ty of [facility] Body temperature 2022-02-15 20:18:00 37.39 [facility]itza [facility] Respiratory rate 2022-02-15 20:18:00 18 /min [facility] Body height 2022-02-15 20:18:00 162.6 cm Universi ty [facility] Body weight 2022-02-15 20:18:00 91.853 kg Universi ty [facility] BMI 2022-02-15 20:18:00 34.76 kg/m2 [facility] Oxygen saturation in 2022-02-15 20:18:00 99 /min [facility] Arterial blood by [facility] Pulse oximetry Branch height 2022-02-06 11:30:00 64 [in_i] [facility] weight 2022-02-06 11:30:00 203.2 [lb_av] Common [facility] temperature 2022-02-06 11:30:00 97.8 [degF] [facility] bmi 2022-02-06 11:30:00 34.88 kg/m2 [facility] oximetry 2022-02-06 11:30:00 99 % [facility] respiratory rate 2022-02-06 11:30:00 16 /min Comm on [facility] blood pressure 2022-02-06 11:30:00 147 mm[Hg] Common [facility] - systolic [facility] blood pressure 2022-02-06 11:30:00 71 mm[Hg] Common [facility] - diastolic [facility] Systolic blood 2021-07-29 20:54:00 150 mm[Hg] Univer sity of [facility] Diastolic blood 2021-07-29 20:54:00 84 mm[Hg] Unive rsity of [facility] Heart rate 2021-07-29 20:53:00 79 /min Universi ty of [facility] Body temperature 2021-07-29 20:53:00 36.89 Danitza Univ ersity of [facility] Body height 2021-07-29 20:53:00 162.6 cm Universi ty of [facility] [place] Body weight 2021-07-29 20:53:00 94.348 kg Universi ty of [facility] BMI 2021-07-29 20:53:00 35.70 kg/m2 Universi ty of [facility] Oxygen saturation in 2021-07-29 20:53:00 97 /min University Arterial blood by [facility] Pulse oximetry Branch Systolic blood 2019-03-10 13:13:00 141 mm[Hg] Univer sity of pressure [facility] Diastolic blood 2019-03-10 13:13:00 75 mm[Hg] Unive rsity of pressure [facility] Heart rate 2019-03-10 13:13:00 60 /min Universi ty of [facility] Body temperature 2019-03-10 13:13:00 36.83 Danitza Univ ersity of [facility] Respiratory rate 2019-03-10 13:13:00 18 /min Univ ersity of [facility] Body height 2019-03-10 13:13:00 162.6 cm Universi ty of [facility] [place] Body weight 2019-03-10 13:13:00 97.523 kg Universi ty of [facility] Branch BMI 2019-03-10 13:13:00 36.90 kg/m2 Universi ty of [facility] Branch Systolic blood 2019-03-10 13:13:00 141 mm[Hg] Univer sity of pressure [facility] [place] Diastolic blood 2019-03-10 13:13:00 75 mm[Hg] Unive rsity of pressure [facility] Heart rate 2019-03-10 13:13:00 60 /min Universi ty of [facility] [place] Body temperature 2019-03-10 13:13:00 36.83 Danitza Univ ersity of [facility] Respiratory rate 2019-03-10 13:13:00 18 /min Univ ersity of [facility] Body height 2019-03-10 13:13:00 162.6 cm Universi ty of [facility] [place] Body weight 2019-03-10 13:13:00 97.523 kg Universi ty of [facility] [place] BMI 2019-03-10 13:13:00 36.90 kg/m2 Universi ty of [facility] Branch Procedures Procedure Date / Time Performing Clinician Source Performed POCT GRP A STREP 2022-07-04 21:26:00 Nasreen Cooney [facility] (MOLECULAR) Medical Branch POCT MOLECULAR FLU 2022-07-04 21:20:00 Unknown, [facility] POCT SARS-COV-2 ANTIGEN 2022-02-15 20:51:00 Maribel Mckeon [facility] (BINAX NOW) Medical Branch ASSIGNMENT OF BENEFITS 2022-02-15 20:07:10 Doctor Unassigned, [facility] [place] [facility] MEDICATION CORRESPONDENCE 2021-12-25 05:01:00 Doctor Unassigned, [facility] [place] [facility] NO SHOW OR MISSED 2019-03-10 12:59:04 Doctor Unassigned, [facility] APPOINTMENT POLICY [place] [facility] ACKNOWLEDGEMENT Plan of Care Planned Activity Planned Date Details Comments Source Future Scheduled 2022-07-09 [facility] Test 03:27:25 [code = INFLUENZA VACCINE] Future Scheduled 2022-07-09 COVID-19 VACCINE (#1) [facility] Test 03:27:25 [code = COVID-19 VACCINE (#1)] Future Scheduled 2022-07-09 Hepatitis C screening [facility] Test 03:27:25 (procedure) [code = 716099047] Future Scheduled 2022-07-09 Screening for [facility] Test 03:27:25 malignant neoplasm of cervix (procedure) [code = 554601904] Future Scheduled 2022-07-09 BREAST CANCER [facility] Test 03:27:25 SCREENING [code = BREAST CANCER SCREENING] Future Scheduled 2022-07-09 COLONOSCOPY SCREENING [facility] Test 03:27:25 [code = COLONOSCOPY SCREENING] Future Scheduled 2022-07-09 SHINGLES VACCINES ([facility] 03:27:25 of 2) [code = SHINGLES VACCINES (1 of 2)] Encounters Start End Encounter Admission Attending Care Care Encounter Source Date/Time Date/Time Type Type Clinicians Facility Department ID 2022-02-06 Outpatient CLARENCE Singh [facility] [id number] Common 10:24:02 [place] [id number] [facility] 2021-11-08 Inpatient [facility] [id number] [facility] 12:53:00 50 2022-08-25 2022-08-[address] [facility] 1.2.840.114 [id number] Univers 00:00:00 00:00:00 [facility] [id number] it y of [facility] [id number] Luke as DANISH?BLEA [phone] [facility] [address] MEDICAL OFFICE [facility] 2022-07-29 2022-07-[address] [facility] 1.2.840.114 [id number] Univers 00:00:00 00:00:00 [facility] [id number] it y of [facility] [id number] Luke as DANISH?BLEA [phone] [address] OFFICE [facility] 2022-07-04 2022-07-04 Outpatient R MAITE [facility] [id number] Univers 15:20:00 15:48:15 NASREEN [facility] 2022-07-04 2022-07-04 Urgent Nasreen Cooney [facility] 1.2.840.114 [id number] Univers 15:20:00 15:48:15 Care Unknown, [facility] [id number] ity of [place] [id number] Luke as DANISH?BLEA [phone] [facility] OFFICE [facility] 2022-06-08 2022-06-08 OFFICE STLMLC STLMLC [id number] Co mmon 00:00:00 00:00:00 VISIT Spirit ESTAB PT - CHI LEVEL 4 [facility] 2022-04-23 2022-04-23 OFFICE STLMLC STLMLC [id number] Co mmon 00:00:00 00:00:00 VISIT Spirit ESTAB PT - CHI LEVEL 4 [facility] 2022-02-15 2022-02-15 Outpatient R LINDA [facility] [id number] Univers 15:00:00 15:54:16 MARIBEL charles [facility] 2022-02-15 2022-02-15 Urgent Maribel Mckeon [facility] 1.2.840.114 [id number] Univers 15:00:00 15:54:16 Care Ladan Poole [facility]ALTH [id number] ity of [place] [id number] Luke as DANISH?BLEA [phone] Pa diciliana JEMAL [address] MEDICAL OFFICE BUILDING 2022-02-15 2022-02-15 Orders Doctor YANCY 1.2.840.114 [id number] Univers 00:00:00 00:00:00 Only Unassigned, MAYRA [id number] ity of [place] [facility] 4.2.7.2.686 Luke as [phone] [address] 2022-02-15 2022-02-15 Telephone Linda [facility] 1.2.697.466 [id number] Univers 00:00:00 00:00:00 Maribel HEALTH [id number] it y of [place] [id number] Luke as DANISH?BLEA [phone] [facility] [address] MEDICAL OFFICE BUILDING 2022-02-09 2022-02-09 (TEL) [facility] STLC [id number] Co mmon 00:00:00 00:00:00 Spirit - CHI [facility] 2022-02-06 2022-02-06 OFFICE [facility] STLC [id number] Co mmon 00:00:00 00:00:00 VISIT [facility] PT LEVEL 3 - CHI [facility] 2022-01-26 2022-01-26 Seng Lee [facility] 1.2.840.114 [id number] Univers 00:00:00 00:00:00 Ernestina HEALTH [id number] it y of [place] [id number] Luke as DANISH?BLEA [phone] Pa diciliana YEUNG [address] MEDICAL OFFICE BUILDING 2021-12-25 2021-12-25 Orders Doctor YANCY 1.2.840.114 [id number] Univers 00:00:00 00:00:00 Only Unassigned, MAYRA [id number] ity of [place] [facility] 4.2.7.2.686 Luke as [phone] [address] 2021-11-08 2021-11-08 Emergency [facility] [id number] [facility] 12:53:00 12:53:00 50 2021-08-15 2021-08-15 [facility] 1.2.840.[id number] [place] [address] 00:00:00 00:00:00 Ernestina [facility] [id number] it y of Edward [place] [id number] Luke as DANISH?BLEA [phone] [address] OFFICE [facility] 2021-07-30 2021-07-30 Telephone [facility] 1.2.840.114 [id number] [facility] 00:00:00 00:00:00 [facility] [id number] it y of [place] [id number] Luke as DANISH?BLEA [phone] [address] OFFICE [facility] 2021-07-29 2021-07-29 Outpatient [facility] [id number] Univers 14:45:00 15:11:15 [facility] 2021-07-29 2021-07-29 Outpatient [facility] [id number] Univers 14:45:00 15:11:15 [facility] 2021-07-29 2021-07-29 Office [facility] 1.2.840.114 [id number] Univers 14:45:00 15:11:15 Visit [facility] [id number] it y of [place] 4.2.7.2.686 Luke as DANISH?BLEA [phone] [address] OFFICE [facility] 2021-07-29 2021-07-29 Telephone [facility] 1.2.840.114 [id number] Univers 00:00:00 00:00:00 [facility] [id number] it y of [place] 4.2.7.2.686 Luke as DANISH?BLEA [phone] [address] OFFICE [facility] 2021-07-25 2021-07-25 Telephone [facility] 1.2.840.114 [id number] Univers 00:00:00 00:00:00 Ernestina HEALTH [id number] it y of [place] 4.2.7.2.686 Luke as DANISH?BLEA [phone] [address] MEDICAL OFFICE [facility] 2021-07-21 2021-07-21 [facility] 1.2.840.114 [id number] Univers 00:00:00 00:00:00 Ernestina HEALTH [id number] it y of Edward [place] 4.2.7.2.686 Luke as DANISH?BLEA [phone] [address] OFFICE [facility] 2021-06-30 2021-06-30 [facility] [id number] Univers 10:00:00 10:00:00 ERNESTINA ity [facility] 2021-06-26 2021-06-[address] [facility] 1.2.840.114 [id number] 00:00:00 00:00:00 [facility] [id number] it y of [place] 4.2.7.2.686 Luke as PROFESSIO [phone] [address] 2021-06-24 2021-06-[address] [facility] 1.2.840.114 [id number] Univers 00:00:00 00:00:00 [facility] [id number] it y of [place] 4.2.7.2.686 Luke as PROFESSIO [phone] [address] 2021-06-17 2021-06-17 Orders Doctor YANCY 1.2.840.114 [id number] Univers 00:00:00 00:00:00 Only Unassigned, MAYRA [id number] ity of [place] [facility] 4.2.7.2.686 Luke as [phone] [address] 2021-04-04 2021-04-[address] [facility] 1.2.840.114 [id number] Univers 00:00:00 00:00:00 [facility] [id number] it y of [place] 4.2.7.2.686 Luke as Professio [phone] [address] Office Building [facility] 2020-12-30 2020-12-30 [employer], Adc Fam Pob I [facility] 1.2. 840.114 [id number] Univers 09:21:45 09:41:45 Visit Ernestina Lee antonio [facility] 350.1.13 .10 ity of [place] 4.2.7.2.686 Luke as Professio [phone] [address] Office [facility] 2020-12-30 2020-12-30 Office Jesus [facility] 1.2.840.114 [id number] [facility] 08:52:35 09:25:51 Visit [facility] 350.1.13.10 it y of [place] 4.2.7.2.686 Luke as Professio [phone] [address] Office [facility] 2020-12-30 2020-12-30 Outpatient R JESUS [facility] [id number] Univers 09:00:00 09:00:00 ERNESTINA itcharles of [facility] 2020-12-30 2020-12-30 Orders Doctor YANCY 1.2.840.114 [id number] Univers 00:00:00 00:00:00 Only Unassigned, MAYRA 350.1.13.10 ity of [place] [facility] 4.2.7.2.686 Luke as [phone] [address] 2020-11-11 2020-11-11 Refill Jesus [facility] 1.2.840.114 [id number] Univers 00:00:00 00:00:00 [facility] [id number] it y of [place] 4.2.7.2.686 Luke as Professio [phone] [address] Office [facility] 2020-10-01 2020-10-01 Patient Nikko [facility] 1.2.840.114 [id number] Univers 00:00:00 00:00:00 Outreach Victorino [facility] 350.1.13.10 i ty of [facility] 4.2.7.2.686 [place] [phone] Pa dical [address] 2020-08-08 2020-08-08 Orders Doctor YNACY 1.2.840.[id number] [place] [address] 00:00:00 00:00:00 Only Unassigned, MAYRA 350.1.13.10 ity of [place] [facility] 4.2.7.2.686 Luke as [phone] [facility] [address] 2020-07-22 2020-07-22 Outpatient GRESS[place], [facility] [id number] [place] 00:00:00 00:00:00 LUCAS 810 Method i 2020-07-22 2020-07-22 Outpatient [place], [facility] [id number] [place] 00:00:00 00:00:00 LUCAS 213 Method i 2020-07-22 2020-07-22 Outpatient [place], [facility] [id number] [place] 00:00:00 00:00:00 LUCAS 150 Method i 2020-07-22 2020-07-22 Outpatient [place], [facility] [id number] [place] 00:00:00 00:00:00 LUCAS 249 Method i 2020-07-04 2020-07-04 Orders Doctor YANCY 1.2.840.114 [id number] [facility] 00:00:00 00:00:00 Only Unassigned, MAYRA 350.1.13.10 ity of [place] [facility] 4.2.7.2.686 Luke as [phone] [address] 2020-07-04 2020-07-04 Orders Doctor YANCY 1.2.840.114 [id number] 00:00:00 00:00:00 Only Unassigned, MAYRA 350.1.13.10 [place] [facility] 4.2.7.2.686 [id number] 009 2020-07-01 2020-07-01 Office JHOAN Lee 1.2.840.114 [id number] 779 [facility] 08:50:10 09:20:32 Visit [facility] 350.1.13.10 it y of [place] 4.2.7.2.686 Luke as Rajwinder [phone] Pa dical nal [address] Office [facility] 2020-07-01 2020-07-01 Office [facility] 1.2.840.114 [id number] 08:50:10 09:20:32 Visit Ernestina [facility] 350.1.13.10 [place] 4.2.7.2.686 Professio [phone] nal [address] [place] [address] 2020-07-01 2020-07-01 [facility] [id number] [facility] 09:00:00 09:00:00 ERNESTINA itcharles [facility] 2020-06-21 2020-06-21 Outpatient [place], [facility] [id number] [place] 00:00:00 00:00:00 LUCAS 504 Method i 2020-06-11 2020-06-11 Outpatient [place], [facility] [id number] [place] 00:00:00 00:00:00 LUCAS 078 Method i 2020-06-11 2020-06-[address] [facility] [id number] [place] 00:00:00 00:00:00 LUCAS 027 Method i 2020-02-16 2020-02-16 Telephone [facility] 1.2.840.114 [id number] Univers 00:00:00 00:00:00 Ernestina Gracia 350.1.13.10 i ty of [place]2.7.2.686 [place] Profess[place] [phone] [address] 2020-01-29 2020-01-29 Telephone [facility] 1.2.840.114 [id number] Univers 00:00:00 00:00:00 Ernestina Gracia 350.1.13.10 i ty of [place].2.7.2.686 [place] Profess[place] [phone] Pa dic[address] 2020-01-17 2020-01-17 [facility] 1.2.840.114 [id number] [facility] 00:00:00 00:00:00 [facility] 350.1.13.10 ity damaris [place] 4.2.7.2.686 Luke as Professio [phone] [address] 2020-01-12 2020-01-12 Telephone [facility] 1.2.840.114 [id number] Univers 00:00:00 00:00:00 Ernestina Gracia 350.1.13.10 i ty of [place]2.7.2.686 [place] Profess[place] [phone] [address] 2020-01-12 2020-01-12 Orders Doctor YANCY 1.2.840.114 [id number] Univers 00:00:00 00:00:00 Only Unassigned, MAYRA 350.1.13.10 ity of [place] [facility] 4.2.7.2.686 Luke as [phone] [address] 2020-01-10 2020-01-10 Telephone [facility] 1.2.840.114 [id number] Univers 00:00:00 00:00:00 [facility] 350.1.13.10 i ty of [place] 4.2.7.2.686 Luke as Professio [phone] [address] 2020-01-09 2020-01-09 Telephone [facility] 1.2.840.114 [id number] Univers 00:00:00 00:00:00 [facility] 350.1.13.10 it y of [place] 4.2.7.2.686 Luke as Professio [phone] [address] 2020-01-01 2020-01-01 Office [facility] 1.2.840.114 [id number] Univers 13:07:51 13:27:02 Visit Ernestina Gracia 350.1.13.10 i ty of [place] 4.2.7.2.686 [place] Profess[place] [phone] [address] 2020-01-01 2020-01-01 Outpatient R JESUS [facility] [id number] Univers 13:15:00 13:15:00 ERNESTINA souza [facility] 2019-11-27 2019-11-27 Outpatient Liv LEE [facility] [id number] Univers 10:45:00 10:45:00 ERNESTINA sky [facility] 2019-11-27 2019-11-27 [facility] 1.2.840.114 [id number] Univers 08:52:52 09:07:52 ne Visit Ernestina Gracia 350.1.13.10 ity of [place]2.7.2.686 [place] Profess[place] [phone] [address] 2019-09-30 2019-09-30 Patient Doctor YANCY 1.2.840.114 [id number] Univers 00:00:00 00:00:00 Secure Msg Unassigned, [place] 350.1.13.10 ity of [place] [facility] 4.2.7.2.686 Luke as [phone] [address] 2019-09-28 2019-09-28 Telephone [facility] 1.2.840.114 [id number] [facility] 00:00:00 00:00:00 [facility] 350.1.13.10 i ty of [place] 4.2.7.2.686 Luke as Professio [phone] [address] Office [facility] 2019-09-18 2019-09-18 Refill [facility] 1.2.840.114 [id number] Univers 00:00:00 00:00:00 [facility] 350.1.13.10 i ty of [place] 4.2.7.2.686 Luke as Professio [phone] [address] 2019-09-14 2019-09-14 Refill [facility] 1.2.840.114 [id number] Univers 00:00:00 00:00:00 [facility] 350.1.13.10 i ty of [place] 4.2.7.2.686 Luke as Professio [phone] [address] Office [facility] 2019-09-04 2019-09-04 Office [facility] 1.2.840.114 [id number] Univers 09:44:22 10:53:52 Visit [facility] [id number] i ty of [place] 4.2.7.2.686 Luke as Professio [phone] Pa dical [facility] [address] 2019-09-04 2019-09-04 Orders Doctor YANCY 1.2.840.114 [id number] Univers 00:00:00 00:00:00 Only Unassigned, MAYRA [id number] ity of [place] [facility] 4.2.7.2.686 Luke as [phone] [facility] [address] 2019-03-31 2019-03-31 [facility] 1.2.840.114 [id number] Univers 06:53:00 12:31:00 Encounter Jim Gracia [id number] it[place] [phone] [facility] [address] 2019-03-31 2019-03-31 Orders Doctor YANCY 1.2.840.114 [id number] Univers 00:00:00 00:00:00 Only Unassigned, MAYRA [id number] ity of [place] [facility] 4.2.7.2.686 Luke as [phone] [facility] [address] 2019-03-15 2019-03-15 [facility] 1.2.840.114 [id number] Univers 11:13:34 23:59:00 Encounter Jim Gracia [id number] it[place] [phone] [facility] [address] 2019-03-15 2019-03-15 [facility] 1.2.840.114 [id number] Univers 11:00:00 11:12:00 Encounter Jim Gracia [id number] ity of [place] [phone] [facility] [address] 2019-03-10 2019-03-10 [facility] 1.2.840.114 [id number] 07:59:20 09:00:22 Visit Jim Gracia [id number] [place] 4.2.7.2.686 Professio [phone] [facility] [address] 2019-03-10 2019-03-10 Office Efe AKJAYDEN 1.2.840.114 [id number] Univers 07:59:20 09:00:22 Visit Jim Gracia [id number] i [place] [phone] [address] 2019-03-10 2019-03-10 Prep For Amadou AKJAYDEN 1.2.840.114 [id number] 00:00:00 00:00:00 Surgery Emily Gracia [id number] [place] 4.2.7.2.686 Professio [phone] [address] 2019-03-10 2019-03-10 Orders Doctor YANCY 1.2.840.114 [id number] Univers 00:00:00 00:00:00 Only Unassigned, MAYRA 350.1.13.10 ity of [place] [facility] 4.2.7.2.686 [place] as [phone] [address] 2019-03-10 2019-03-10 Prep For Amadou AKJAYDEN 1.2.840.114 [id number] Univers 00:00:00 00:00:00 Surgery Emily Gracia [id number] i [place] [phone] [address] Results Test Description Test Time Test Comments Results Result Comments Source POCT GRP A STREP (MOLECULAR) 2022-07-04 21:41:00 Test Item Value Reference Range Interpretation Comme nts POCT GP A STREP (test code = 53894-4) negative Negative - Negat [facility] Interpretation (test code = 94320-4) Normal [facility] MOLECULAR [id number] 21:33:14 Test Item Value Reference Range Interpretation Comments POCT Molecular FluA (test code = Negative Negative 09186-2) POCT Molecular FluB (test code = Negative Negative 20919-7) Lab Interpretation (test code = Normal 75604-8) [facility] SARS-COV-2 ANTIGEN (BINAX NOW)2022-02-15 20:51:00 Test Item Value Reference Range Interpretation Comments POCT SARS-COV-2 ANTIGEN Positive Not Detected A (test code = 5076) On board controls Yes acceptable with C Line (test code = 3574) BETTY (test code = BETTY) accurate development and interpretation of all internal controls Lab Interpretation Abnormal (test code = 28570-2) [facility] [id number] 13:15:00 Test Item Value Reference Range Interpretation Comments RBC,Urine (test code = URBCUF) 11-25 /HPF 0-2 A WBC,Urine (test code = UWBCUF) 0-5 /HPF 0-5 Epithelial Cell,Urine (test 0-5 /HPF 0-5 code = UECUF) Casts,Urine (test code = 0-5 /LPF None Seen UCASTUF) Bacteria,Urine (test code = None Seen /hpf None Seen UBACTUF) Drug Screen,[id number] 13:15:00 Test Item Value Reference Range Interpretation Comments PCP Phencyclidine Screen,Urine (test Negative Negative code = PCPU) Amphetamine Screen,Urine (test code Negative Negative = AMPU) Methadone Screen,Urine (test code = Negative Negative METHU) Opiate Screen,Urine (test code = Positive Negative A UOPIS) Barbituates Screen,Urine (test code Negative Negative = BARBU) Benzodiazepines Screen,Urine (test Negative Negative code = UBENZS) Cocaine Screen,Urine (test code = Positive Negative A UCOCS) Cannabinoid Screen,Urine (test code Negative Negative = UTHCS) Propoxyphene Screen, Urine (test Negative Negative code = UPROP) Comprehensive Metabolic [id number] 13:15:00 Test Item Value Reference Range Interpretation Comments SODIUM (test code = NA) 140.0 mmol/L 136.0-145.0 N Potassium,K (test code = K) 3.7 mmol/L 3.0-5.1 N Chloride (test code = CL) 106 mmol/L 98-107 N Carbon Dioxide (test code = 29 mmol/L 20-31 N CO2) Anion Gap (test code = GAP) 5 mmol/L 5-15 N Blood Urea Nitrogen (test code 17 mg/dL 9-23 N = BUN) Creatinine (test code = CREATT) 0.58 mg/dL 0.55-1.02 N Creatinine Clr Calc Pharmacy 119.69 mL/min (test code = CRCLPHA) Estimated GFR ( Ana > 60 mL/min/1.73m2 (test code = EGFRAA) Estimated GFR (Non Afr Ana > 60 mL/min/1.73m2 (test code = EGFRNAA) BUN/Creatinine Ratio (test code 29 ratio 10-20 H = BCRATIO) Glucose (test code = GLU) 95 mg/dL 74-106 N Osmolality,Calculated (test 291.0 code = OSMOC) Calcium (test code = CA) 9.9 mg/dL 8.3-10.6 N Bilirubin,Total (test code = 0.2 mg/dL 0.2-1.1 N BILIT) Aspartate Amino Transferase 19 U/L 0-34 N (test code = AST) Alanine Aminotransferase (test 22 U/L 10-49 N code = ALT) Total Protein (test code = TP) 6.4 g/dL 5.7-8.2 N Albumin Level (test code = ALB) 4.0 g/dL 3.2-4.8 N Globulin (test code = GLOB) 2.4 mg/dL 2.3-3.5 N Albumin/Globulin Ratio (test 1.7 ratio 0.8-2.0 N code = AGRATIO) Alkaline Phosphatase (test code 84 U/L 46-116 N = ALP) Ethanol [id number] 13:15:00 Test Item Value Reference Range Interpretation Comments Ethanol (test code < 3 mg/dL The pharm acological = ETOH) response to blo od alcohol levels mayvary from individual to i ndividual. The fatal christopher ntrationhas been reported t o be >400mg/dL. Complete Blood Count Auto [id number] 13:15:00 Test Item Value Reference Range Interpretation Comments White Blood Count (test code = 15.5 x10 3/uL 4.4-10.5 H WBCT) Red Blood Count (test code = 4.21 x10 6/uL 3.75-5.20 N RBC) Hemoglobin (test code = HGBT) 13.8 g/dL 12.2-14.8 N Hematocrit (test code = HCTT) 42.2 % 36.5-44.4 N Mean Corpuscular Volume (test 100.20 fL 80.00-100.00 H code = MCV) Mean Corpuscular Hemoglobin 32.8 pg 27.0-32.5 H (test code = MCH) Mean Corpuscular HGB Conc 32.70 g/dL 32.00-37.50 N (test code = MCHC) RDW Coefficient of Variation 12.6 % 11.5-14.5 N (test code = RDWCV) Platelet Count (test code = 346.0 x10 3/uL 140.0-440.0 N PLTT) Mean Platelet Volume (test 9.3 fL code = MPV) Immature Granulocytes % (Auto) 0.8 % 0.0-5.0 N (test code = IMMGRAN%) Neutrophils % (Auto) (test 58.6 % 36.0-70.0 N code = NE%) Lymphocytes % (Auto) (test 32.5 % 12.0-44.0 N code = LY%) Monocytes % (Auto) (test code 5.4 % 0.0-11.0 N = MO%) Eosinophils % (Auto) (test 2.0 % 0.0-7.0 N code = EO%) Basophils % (Auto) (test code 0.7 % 0.0-2.0 N = BA%) Immature Granulocytes # (Auto) 0.13 x10 3/uL (test code = IMMGRAN#) Neutrophils # (Auto) (test 9.1 x10 3/uL 1.6-7.4 H code = NE#) Lymphocytes # (Auto) (test 5.03 x10 3/uL 0.50-4.60 H code = LY#) Monocytes # (Auto) (test code 0.84 x10 3/uL 0.00-1.20 N = MO#) Eosinophils # (Auto) (test 0.31 x10 3/uL 0.00-0.74 N code = EO#) Basophils # (Auto) (test code 0.11 x10 3/uL 0.00-0.21 N = BA#) nRBC Abs (test code = NRBCA) 0 nRBC Pct (test code = NRBCP) 0 % UA, Urinalysis Rflx Cult/[id number] 13:15:00 Test Item Value Reference Range Interpretation Comments Color,Urine (test code = UCOL) Yellow Yellow Clarity,Urine (test code = Clear Clear UCLAR) Ph, Urine (test code = UPH) 5.0 5.0-9.0 N Specific [place],Urine (test 1.025 1.005-1.030 N code = USG) Blood,Urine (test code = UBLD) Trace mg/dL Negative A Protein,Urine (test code = Trace mg/dL Negative A UPRO) Glucose,Urine (UA) (test code Negative mg/dL Negative = UGLU) Ketones,Urine (test code = Negative mg/dL Negative UKET) Nitrate,Urine (test code = Negative Negative UNIT) Bilirubin,Urine (test code = Negative mg/dL Negative UBIL) Urobilinogen,Urine (test code 0.2 E.U./dL Normal = UURO) Leukocyte Esterase,Urine (test Negative mg/dL Negative code = ULEU) SARS-CoV-2 (COVID-19) RNA [Presence] in Respiratory specimen by DIALLO with probe [id number] 17:20:48 Test Item Value Reference Range Interpretation Comments SARS-CoV-2 (COVID-19) RNA Not detected Not-Detected [Presence] in Respiratory specimen by DIALLO with probe detection (test code = 41798-4) [facility] Fluoroscopy in Imaging per [id number] 11:41:01 Patient: ROLAN DAMON Date/Time03/15/2018 10:41 CDTReason for Examneurostimulator spineReportEXAM: FLUOROSCOPIC GUIDANCECLINICAL HISTORY: Back painTECHNIQUE: Fluoroscopic guidance was provided for neurostimulator device placement.FINDINGS:Fluoroscopic guidance was provided for neurostimulator device placement.Fluoroscopy time: Less than 5 minutesImage number: 1IMPRESSION:1. Fluoroscopic guidance was provided for neurostimulator device placement.2. Please see dedicated surgical report for further details.LOCATION: R16 Final Dictated by: MD Carter Melanie CDictated DT/TM: 03/15/2018 11:40 amSigned by: MD Carter Melanie CSigned (Electronic Signature): 03/15/2018 11:41 amAFB CULTURE + [id number] 14:52:00 Test Item Value Reference Range Interpretation Comments CULTURE (BEAKER) (test No acid-fast bacilli code = 1095) isolated in 42 days AFB SMEAR (BEAKER) No acid fast bacilli (test code = 994) seen FUNGUS CULTURE + [id number] 12:30:00 Test Item Value Reference Range Interpretation Comments CULTURE (BEAKER) (test No fungus isolated in code = 1095) 28 days FUNGUS SMEAR (BEAKER) No fungi seen (test code = 1406) ANAEROBIC [id number] 16:38:00 Test Item Value Reference Range Interpretation Comments CULTURE (BEAKER) (test No anaerobes isolated code = 1095) SURGICALLY OBTAINED CULTURE + GRAM [id number] 11:01:00 Test Item Value Reference Range Interpretation Comments CULTURE (BEAKER) (test code No growth = 1095) GRAM STAIN RESULT (BEAKER) <1+ WBCs (test code = 1123) GRAM STAIN RESULT (BEAKER) No organisms seen (test code = 58847) SPIN/CONCENTRATION [id number] 12:26:00 Test Item Value Reference Range Interpretation Comments CONCENTRATION CHARGED (BEAKER) (test Done code = 2657)
[2022-09-10] MEDS ORDERED: KETOROLAC 30 MG/ML INJ ONE (10:00)
[2022-09-10] MEDS ORDERED: dexAMETHasone 10 MG/ML VIAL ONE (10:00)
--- NOTE | 2022-09-10 10:26 | RAD REPORT ---
EXAM DESCRIPTION: RAD - Knee Right 3 View - 09/10/2022 10:14 am CLINICAL HISTORY: Right knee pain FINDINGS: No fracture or dislocation is seen. Mild osteoarthritis medial compartment mainly consisting of mild joint space narrowing
--- NOTE | 2022-09-10 10:31 | ER ---
Nurse's Notes [facility] Name: Mariela Hayes Age: 57 yrs Sex: Female : 1965 Arrival Date: 09/10/2022 Time: 09:42 Bed 13 Private MD: Diagnosis: Pain in right knee;Unilateral primary osteoarthritis, right knee Presentation: 09/10 09:48 Chief complaint: Patient states: chronic right knee pain that's been worse over past 3 iw days. Coronavirus screen: At this time, the client does not indicate any symptoms associated with coronavirus-19. Ebola Screen: Patient negative for fever greater than or equal to 101.5 degrees Fahrenheit, and additional compatible Ebola Virus Disease symptoms Patient denies exposure to infectious person. Patient denies travel to an Ebola-affected area in the 21 days before illness onset. No symptoms or risks identified at this time. Initial Sepsis Screen: Does the patient meet any 2 criteria? No. Patient's initial sepsis screen is negative. Does the patient have a suspected source of infection? No. Patient's initial sepsis screen is negative. Risk Assessment: Do you want to hurt yourself or someone else? Patient reports no desire to harm self or others. Onset of symptoms was September 07, 2022. 09:48 Method Of Arrival: Wheelchair iw 09:48 Acuity: JUAN 4 iw Historical: - Allergies: 09:49 Phenergan; iw - PMHx: 09:49 Alzheimers; Chronic pain; Hypertension; iw - Immunization history:: Adult Immunizations unknown. - Social history:: Smoking status: Patient denies any tobacco usage or history of. Screenin:45 [facility] ED Fall Risk Assessment (Adult) History of falling in the last 3 months, ko1 including since admission No falls in past 3 months (0 pts) Confusion or Disorientation No (0 pts) Intoxicated or Sedated No (0 pts) Impaired Gait Yes (1 pt) Mobility Assist Device Used Yes (1 pt) Altered Elimination No (0 pt) Score/Fall Risk Level 0 - 2 = Low Risk Oriented to surroundings, Maintained a safe environment, Educated pt \T\ family on fall prevention, incl call for assistance when getting out of bed, Assessed \T\ reinforced patient's understanding of fall precautions, Provided non-skid footwear, Hourly rounding (assess needs \T\ fall precautionary measures) done, Used ambulatory aids as needed (educated on \T\ assisted with), Used gait belt as appropriate. Abuse screen: Denies threats or abuse. Denies injuries from another. Nutritional screening: No deficits noted. Tuberculosis screening: No symptoms or risk factors identified. Assessment: 09:45 General: Appears in no apparent distress. uncomfortable, Behavior is calm, cooperative, ko1 appropriate for age. Neuro: No deficits noted. Cardiovascular: No deficits noted. Respiratory: No deficits noted. GI: No deficits noted. : No deficits noted. EENT: No deficits noted. Derm: No deficits noted. Musculoskeletal: No deficits noted. 09:45 Pain: Complains of pain in right knee. ko1 Vital Signs: 09:48 BP 157 / 56; Pulse 66; Resp 16; Temp 97.7; Pulse Ox 97% on R/A; Pain 8/10; iw 10:33 BP 148 / 62; Pulse 68; Resp 16; Pulse Ox 99% ; ko1 ED Course: 09:42 Patient arrived in ED. as 09:42 Chacorta Yeager DO is Attending Physician. ms3 09:44 Debbi Church, VERNON is Primary Nurse. ko1 09:45 Patient has correct armband on for positive identification. Fall risk band placed. Bed ko1 in low position. Call light in reach. Side rails up X 1. Pulse ox on. NIBP on. 09:49 Triage completed. iw 09:50 Arm band placed on. iw 10:30 Curtis Evangelista MD is Referral Physician. ms3 10:33 No provider procedures requiring assistance completed. Patient did not have IV access ko1 during this emergency room visit. Administered Medications: 10:00 Drug: Ketorolac 15 mg Route: IM; Site: right deltoid; ko1 10:00 Drug: Decadron (dexamethasone) 10 mg Route: IM; Site: left deltoid; ko1 Medication: 09:45 VIS not applicable for this client. ko1 Outcome: 10:31 Discharge ordered by . ms3 10:33 Discharged to home via wheelchair, with family. ko1 10:33 Condition: stable 10:33 Discharge instructions given to patient, family, Instructed on discharge instructions, follow up and referral plans. Demonstrated understanding of instructions, follow-up care. 10:37 Patient left the ED. ko1 Signatures: Shira Card as Radha Curry, VERNON RN iw Chacorta Yeager DO DO ms3 Debbi Church RN RN ko1 Corrections: (The following items were deleted from the chart) 09:56 09:48 Temp 97.7F; placido cummins
--- NOTE | 2022-09-10 10:31 | EDPHYS ---
Physician Documentation [facility] Name: Mariela Hayes Age: 57 yrs Sex: Female : 1965 Arrival Date: 09/10/2022 Time: 09:42 Bed 13 Private MD: ED Physician Chacorta Yeager HPI: 09/10 09:51 This 57 yrs old Female presents to ER via Wheelchair with complaints of Knee Pain. ms3 09:51 57-year-old male with past medical history of Alzheimer's, chronic pain, hypertension ms3 presents for right knee pain that is been ongoing for 3 days. Patient states she sees Dr. Taveras for pain management in [place]. Patient states her knee has given out. Patient states pain is a 9/10 described as dull and worse with standing. Patient denies alleviating factors. Patient states she has taken buprenorphine, Tylenol, Aleve for the pain without relief.. Historical: - Allergies: 09:49 Phenergan; iw - PMHx: 09:49 Alzheimers; Chronic pain; Hypertension; iw - Immunization history:: Adult Immunizations unknown. - Social history:: Smoking status: Patient denies any tobacco usage or history of. ROS: 09:53 Constitutional: Negative for fever, and chills. Neck: Negative for injury, pain, and ms3 swelling, Cardiovascular: Negative for chest pain, and palpitations. Respiratory: Negative for shortness of breath, cough, wheezing, and pleuritic chest pain, Abdomen/GI: Negative for abdominal pain, nausea, vomiting, diarrhea, and constipation, Skin: Negative for injury, rash, and discoloration. 09:53 MS/extremity: Positive for pain, of the right knee. 09:53 All other systems are negative. Exam: 09:53 Constitutional: This is a well developed, well nourished patient who is awake, alert, ms3 and in no acute distress. Head/Face: Normocephalic, atraumatic. Neck: Trachea midline, no cervical lymphadenopathy. Supple, full range of motion without nuchal rigidity, or vertebral point tenderness. No Meningismus. Chest/axilla: Normal chest wall appearance and motion. Nontender with no deformity. Cardiovascular: Regular rate and rhythm with a normal S1 and S2. No gallops, murmurs, or rubs. Normal PMI, no JVD. No pulse deficits. Respiratory: Lungs have equal breath sounds bilaterally, clear to auscultation and percussion. No rales, rhonchi or wheezes noted. No increased work of breathing, no retractions or nasal flaring. Abdomen/GI: Soft, non-tender, with normal bowel sounds. No distension or tympany. No guarding or rebound. No evidence of tenderness throughout. Skin: Warm, dry with normal turgor. Normal color with no rashes, no lesions, and no evidence of cellulitis. 09:53 Musculoskeletal/extremity: Extremities: noted in the right knee: pain, There is no evidence of ecchymosis, erythema, swelling, tenderness. Vital Signs: 09:48 BP 157 / 56; Pulse 66; Resp 16; Temp 97.7; Pulse Ox 97% on R/A; Pain 8/10; iw 10:33 BP 148 / 62; Pulse 68; Resp 16; Pulse Ox 99% ; ko1 MDM: 09:51 Patient medically screened. ms3 09:53 Differential diagnosis: OA vs strain vs Reflex sympathetic dystrophy. ms3 10:31 Data reviewed: vital signs, nurses notes, radiologic studies, plain films, and as a ms3 result, I will discharge patient. I considered the following discharge prescriptions or medication management in the emergency department Medications were administered in the Emergency Department. See MAR. Independent interpretation of the following test(s) in the Emergency Department X-Ray: My interpretation is Knee x-ray image reviewed- neg for fx.. Counseling: I had a detailed discussion with the patient and/or guardian regarding: the historical points, exam findings, and any diagnostic results supporting the discharge/admit diagnosis, radiology results, the need for outpatient follow up, to return to the emergency department if symptoms worsen or persist or if there are any questions or concerns that arise at home. ED course: Discussed x-ray results with patient and her . Patient to follow-up with Dr. Evangelista in 2 to 3 days. Patient understands agrees with plan. All questions answered. Return precautions discussed include worsening symptoms, or any other concerns.. 09/10 09:53 Order name: Knee Right 3 View XRAY ms3 09/10 10:26 Order name: RAD; Complete Time: 10:27 EDMS 09/10 10:33 Order name: Edenilson ms3 Administered Medications: 10:00 Drug: Ketorolac 15 mg Route: IM; Site: right deltoid; ko1 10:00 Drug: Decadron (dexamethasone) 10 mg Route: IM; Site: left deltoid; ko1 Disposition Summary: 09/10/22 10:31 Discharge Ordered Location: Home ms3 Condition: Stable ms3 Diagnosis - Pain in right knee ms3 - Unilateral primary osteoarthritis, right knee ms3 Followup: ms3 - With: Curtis Evangelista MD - When: 2 - 3 days - Reason: Recheck today's complaints Discharge Instructions: - Discharge Summary Sheet ms3 - Osteoarthritis ms3 - Acute Knee Pain, Adult ms3 Forms: - Medication Reconciliation Form ms3 - Thank You Letter ms3 - Antibiotic Education ms3 - Prescription Opioid Use ms3 Signatures: Dispatcher [employer] Radha Saucedo, RN Chacorta Linares DO DO ms3 Debbi Church RN RN ko1
[2022-09-10 10:42] VITALS: TEMP 97.7
[2022-09-10 10:44] VITALS: BP 148/62; O2SAT 99
== END 2022-09-10 10:37 | disposition home or self-care (01) ==
LOC: ER 09:39
DX: M17.11 Unilateral primary osteoarthritis, right knee (principal); Z88.8 Allergy status to other drugs, medicaments and biological substances
CPT/HCPCS: 73562; 96372; 99283; J1100

== ENCOUNTER 2023-08-24 12:24 | Observation (INO) | payer OTHER ==
[2023-08-24] MEDS ORDERED: ONDANSETRON 4 MG/2 ML VIAL ONE (12:50)
[2023-08-24] MEDS ORDERED: dexAMETHasone 10 MG/ML VIAL ONE (12:50)
[2023-08-24] MEDS ORDERED: KETOROLAC 30 MG/ML INJ ONE (12:50)
[2023-08-24] MEDS ORDERED: FENTANYL CITR 100 MCG/2 ML ONE (12:50)
[2023-08-24] MEDS ORDERED: NA CHLORIDE 0.9% 500 ML ONE ×2 (12:51→15:14)
[2023-08-24] MEDS ORDERED: DIAZEPAM 5 MG TABLET ONE (12:51)
[2023-08-24 13:19] LABS: Absolute Lymphocytes (CBC) 7.2 K/uL (0.7-4.9); Hematocrit 35.4 % (36.0-45.0); Lymphocytes % 35.8 % (15.3-44.8); MCV 94.7 fL (80-100); MPV 7.1 fL (7.6-11.3); Platelets 368 thou/uL (152-406); RBC Red Blood Cell Count 3.74 M/uL (3.86-4.86)
[2023-08-24 13:33] LABS: Albumin 3.4 g/dL (3.4-5.0); Bilirubin Total 0.3 mg/dL (0.2-1.0); Protein, Total 7.3 g/dL (6.4-8.2)
--- NOTE | 2023-08-24 14:00 | RAD REPORT ---
EXAM DESCRIPTION: CT - Spine Lumbar Wo Con - 08/24/2023 1:48 pm CLINICAL HISTORY: Radiculopathy. PAIN COMPARISON: <Comparisons> TECHNIQUE: Axial noncontrast CT imaging of the lumbar spine was performed with coronal and sagittal re-formatted images. All CT scans are performed using dose optimization technique as appropriate and may include automated exposure control or mA/KV adjustment according to patient size. FINDINGS: No acute lumbar spine fracture seen. No aggressive marrow pattern or malalignment. Diffuse osteopenia, mild to moderate is noted. Paraspinal tissues are normal in thickness. No paraspinal abscess or hematoma seen. A grade 1 anterolisthesis of L4 on 5 is seen with narrowing of both exit foramina at this level. Cent ral canal is also moderately narrowed at this level. Prominent facet hypertrophy is seen L4-5 and L5- S1. IMPRESSION: Moderate diffuse osteopenia is present. No acute compression fracture or other acute abn ormality seen. Moderate spondylosis L4-5 is present with evidence of central canal narrowing as well as bilateral fo raminal narrowing.
[2023-08-24 14:20] LABS: Specific Gravity 1.015 (1.005-1.030); Urine Bacteria None Seen /HPF (<20); Urine Bilirubin NEGATIVE (Negative); Urine Blood 1+ (Negative); Urine Clarity Clear (Clear); Urine Color Light-Yellow (Yellow); Urine Glucose NEGATIVE (Negative); Urine Mucus Slight /HPF (None Seen); Urine Protein NEGATIVE (Negative); Urine Urobilinogen Normal (Normal)
[2023-08-24] MEDS ORDERED: ALBUTEROL 2.5 MG/3 ML NEB SOL ONE (15:14)
[2023-08-24] MEDS ORDERED: NA CHLORIDE 0.9% 1,000 ML ONE (15:14)
[2023-08-24] MEDS ORDERED: CEFTRIAXONE 1000 MG/VIAL ONE (15:14)
[2023-08-24] MEDS ORDERED: SOD POLYSTYREN SUL 15 GM/60 ML UCUP ONE ×2 (15:14→18:13)
--- NOTE | 2023-08-24 15:18 | EDPHYS ---
[facility] Name: Mariela Hayes Age: 58 yrs Sex: Female : 1965 Arrival Date: 08/24/2023 Time: 12:24 Bed 11 Private MD: Kevin Rodriguez ED Physician Mohan Benito HPI: 08/24 15:03 This 58 yrs old Female presents to ER via Ambulatory with complaints of Back maribell Pain. Historical: - Allergies: 12:29 Phenergan; ap3 - PMHx: 12:29 Alzheimers; Alzheimer's disease; Chronic pain; Hypertension; ap3 - Immunization history:: Client reports receiving the 2nd dose of the Covid vaccine, Flu vaccine is not up to date. - Social history:: Smoking status: Smoking status: Patient reports the use of cigarette tobacco products, smokes one-half pack cigarettes per day. ROS: 15:05 Constitutional: Negative for fever, chills, and weight loss, Eyes: Negative for injury, maribell pain, redness, and discharge, ENT: Negative for injury, pain, and discharge, Neck: Negative for injury, pain, and swelling, Cardiovascular: Negative for chest pain, palpitations, and edema, Respiratory: Negative for shortness of breath, cough, wheezing, and pleuritic chest pain, Abdomen/GI: Negative for abdominal pain, nausea, vomiting, diarrhea, and constipation, : Negative for injury, bleeding, discharge, and swelling, MS/Extremity: Negative for injury and deformity, Skin: Negative for injury, rash, and discoloration, Neuro: Negative for headache, weakness, numbness, tingling, and seizure, Psych: Negative for depression, anxiety, suicide ideation, homicidal ideation, and hallucinations, Allergy/Immunology: Negative for hives, rash, and allergies, Endocrine: Negative for neck swelling, polydipsia, polyuria, polyphagia, and marked weight changes, Hematologic/Lymphatic: Negative for swollen nodes, abnormal bleeding, and unusual bruising, 15:05 Constitutional: Positive for fatigue, 15:05 Back: Positive for radiated pain, of the right low back, 15:05 Neuro: Negative for altered mental status, dizziness, gait disturbance, headache, seizure activity, speech changes, syncope, near syncope, tremor, visual changes, weakness, Exam: 15:05 Constitutional: This is a well developed, well nourished patient who is awake, alert, maribell and in no acute distress. Head/Face: Normocephalic, atraumatic. Eyes: Pupils equal round and reactive to light, extra-ocular motions intact. Lids and lashes normal. Conjunctiva and sclera are non-icteric and not injected. Cornea within normal limits. Periorbital areas with no swelling, redness, or edema. ENT: Nares patent. No nasal discharge, no septal abnormalities noted. Tympanic membranes are normal and external auditory canals are clear. Oropharynx with no redness, swelling, or masses, exudates, or evidence of obstruction, uvula midline. Mucous membranes moist. Neck: Trachea midline, no thyromegaly or masses palpated, and no cervical lymphadenopathy. Supple, full range of motion without nuchal rigidity, or vertebral point tenderness. No Meningismus. Chest/axilla: Normal chest wall appearance and motion. Nontender with no deformity. No lesions are appreciated. Cardiovascular: Regular rate and rhythm with a normal S1 and S2. No gallops, murmurs, or rubs. Normal PMI, no JVD. No pulse deficits. Respiratory: Lungs have equal breath sounds bilaterally, clear to auscultation and percussion. No rales, rhonchi or wheezes noted. No increased work of breathing, no retractions or nasal flaring. Abdomen/GI: Soft, non-tender, with normal bowel sounds. No distension or tympany. No guarding or rebound. No evidence of tenderness throughout. Female : Normal external genitalia. Skin: Warm, dry with normal turgor. Normal color with no rashes, no lesions, and no evidence of cellulitis. MS/ Extremity: Pulses equal, no cyanosis. Neurovascular intact. Full, normal range of motion. Neuro: Awake and alert, GCS 15, oriented to person, place, time, and situation. Cranial nerves II-XII grossly intact. Motor strength 5/5 in all extremities. Sensory grossly intact. Cerebellar exam normal. Normal gait. Psych: Awake, alert, with orientation to person, place and time. Behavior, mood, and affect are within normal limits. 15:05 Back: pain, that is moderate, of the lumbar area and right low back, ROM is painful, normal spinal alignment noted, CVA tenderness, is absent, vertebral tenderness, is not appreciated, muscle spasm, is not present, 15:18 ECG was reviewed by the Attending Physician. [facility] Vital Signs: 12:28 BP 114 / 64; Pulse 76; Resp 17; Temp 97.4; Pulse Ox 100% ; Weight 99.79 kg; Height 5 ap3 ft. 4 in. ; Pain 6/10; 12:28 Body Mass Index 37.76 (99.79 kg, 162.56 cm) ap3 12:28 Pain Scale: Adult ap3 Daljit Coma Score: 15:05 Eye Response: spontaneous(4). Motor Response: obeys commands(6). Verbal Response: maribell oriented(5). Total: 15. MDM: 12:39 Patient medically screened. maribell 15:07 Differential diagnosis: chronic back pain, Fatigue Hydronephrosis Obesity maribell Osteoarthritis Osteoporosis ruptured disc, sprain, Ureterolithiasis vertebral fracture. Data reviewed: vital signs, nurses notes, lab test result(s), EKG, radiologic studies, CT scan, plain films, ultrasound. Consideration of Admission/Observation Escalation of care including admission/observation considered. I considered the following discharge prescriptions or medication management in the emergency department Medications were administered in the Emergency Department. See MAR. Independent interpretation of the following test(s) in the Emergency Department EKG: See my EKG interpretation above. Test considered but Not performed: MRI: no mri lumbar spine. Historians other than the Patient: pt well informed. Care significantly affected by the following chronic conditions: Hypertension, Obesity. Counseling: I had a detailed discussion with the patient and/or guardian regarding the historical points, exam findings, and any diagnostic results supporting the discharge/admit diagnosis, lab results, radiology results, the need for further work-up and treatment in the hospital. 08/24 12:41 Order name: CBC with Diff [facility] 08/24 12:41 Order name: Comprehensive Metabolic Panel; Complete Time: 14:53 [facility] 08/24 12:41 Order name: Urinalysis w/ reflexes; Complete Time: 14:53 [facility] 08/24 14:55 Order name: CBC with Diff [facility] 08/24 14:55 Order name: Comprehensive Metabolic Panel [facility] 08/24 15:01 Order name: Blood Culture Adult (2) [facility] 08/24 15:01 Order name: Lactate w/ 2H reflex if indic.; Complete Time: 16:33 [facility] 08/24 16:37 Order name: Urinalysis w/ reflexes EDMS / 16:37 Order name: Basic Metabolic Panel EDMS 08/24 16:37 Order name: Basic Metabolic Panel EDMS 08/24 16:37 Order name: Basic Metabolic Panel EDMS 08/24 16:37 Order name: Basic Metabolic Panel EDMS 08/24 16:37 Order name: Basic Metabolic Panel EDMS 08/24 16:37 Order name: CBC with Automated Diff EDMS 08/24 16:37 Order name: CBC with Automated Diff EDMS 08/24 16:37 Order name: CBC with Automated Diff EDMS 08/24 16:37 Order name: CBC with Automated Diff EDMS 08/24 16:37 Order name: CBC with Automated Diff EDMS 08/24 16:37 Order name: Magnesium EDMS 08/24 16:37 Order name: Magnesium EDMS 08/24 16:37 Order name: Magnesium EDMS 08/24 16:37 Order name: Magnesium EDMS 08/24 16:37 Order name: Magnesium EDMS 08/24 16:37 Order name: Phosphorus EDMS 08/24 16:37 Order name: Phosphorus EDMS 08/24 16:37 Order name: Phosphorus EDMS 08/24 16:37 Order name: Phosphorus EDMS 08/24 16:37 Order name: Phosphorus EDMS 08/24 17:47 Order name: Glucose, Ancillary Testing; Complete Time: 17:48 EDMS 08/24 18:29 Order name: CBC Smear Scan EDMS 08/24 12:42 Order name: CT Lumbar Spine Wo Con; Complete Time: 14:53 [facility] 08/24 14:55 Order name: US Rp Exam Complete; Complete Time: 17:48 [facility] 08/24 14:56 Order name: EKG; Complete Time: 14:56 [facility] 08/24 16:37 Order name: CONS Physician Consult EDMS 08/24 16:37 Order name: CONS Physician Consult EDMS 08/24 16:37 Order name: Physical Therapy Consult EDMS 08/24 14:56 Order name: EKG - Nurse/Tech; Complete Time: 15:10 [facility] EC:18 Rate is 70 beats/min. Rhythm is regular. QRS [place] is Normal. UT interval is normal. QRS maribell interval is normal. QT interval is normal. No Q waves. T waves are Peaked. No ST changes noted. Clinical impression: NSR w/ Non-specific ST/T Changes and Suggests hyperkalemia. Interpreted by me. Reviewed by me. Administered Medications: 13:09 Drug: NS 0.9% IV 500 ml IV at bolus once Route: IV; Rate: bolus; Site: right kc6 antecubital; 17:20 Follow up: Response: No adverse reaction; IV Status: Completed infusion; IV Intake: kc6 500ml 13:09 Drug: Ketorolac IVP 30 mg IVP once Route: IVP; Site: right antecubital; kc6 17:21 Follow up: Response: No adverse reaction; Pain is decreased kc6 13:09 Drug: Decadron - Dexamethasone IVP 10 mg IVP once Route: IVP; Site: right antecubital; kc6 17:21 Follow up: Response: No adverse reaction kc6 13:09 Drug: fentaNYL (PF) IVP 25 mcg IVP once Route: IVP; Site: right antecubital; kc6 17:21 Follow up: Response: No adverse reaction; Pain is decreased; RASS: Alert and Calm (0) 6 13:09 Drug: Ondansetron IVP 4 mg IVP once; over 2 minutes Route: IVP; Site: right antecubital;kc6 17:21 Follow up: Response: No adverse reaction kc6 13:09 Drug: Diazepam PO 5 mg PO once Route: PO; kc6 17:21 Follow up: Response: No adverse reaction; Pain is decreased; RASS: Alert and Calm (0) kc6 14:35 Not Given (Other Intervention Used): fentanyl (pf)25 mcg IVP once kc6 15:30 Drug: NS 0.9% IV 1000 ml IV at 125 ml/hr continuous Route: IV; Rate: 125 ml/hr; Site: kc6 right antecubital; 17:22 Follow up: Response: No adverse reaction; IV Status: Infusion continued upon admission kc6 15:30 Drug: NS 0.9% IV 500 ml IV at bolus once Route: IV; Rate: bolus; Site: right kc6 antecubital; 17:22 Follow up: Response: No adverse reaction; IV Status: Completed infusion; IV Intake: kc6 500ml 15:30 Drug: Albuterol Inhalation 5 mg Inhalation once Route: Inhalation; kc6 17:22 Follow up: Response: No adverse reaction 6 15:30 Drug: Rocephin IV 1 grams IV at per protocol once; Given slow IV push per pharmacy kc6 instructions Route: IV; Rate: per protocol; Site: right antecubital; 17:23 Follow up: Response: No adverse reaction; IV Status: Completed infusion; IV Intake: [id number] 15:30 Drug: Calcium Gluconate IVPB 1 grams IVPB once over 20 mins; (mix in NS 100 mL) Route: kc6 IVPB; Infused Over: 20 mins; Site: right antecubital; 17:23 Follow up: Response: No adverse reaction; IV Status: Completed infusion; IV Intake: kc6 100ml 15:30 Drug: D10 in Water IVP 250 ml IVP once Route: IVP; Site: right antecubital; kc6 17:23 Follow up: Response: No adverse reaction kc6 15:30 Drug: Insulin Regular Human IVP 10 units IVP once {Co-Signature: ll1 (Niya Abraham6 RN).} Route: IVP; Site: right wrist; 17:23 Follow up: Response: No adverse reaction kc6 15:45 Drug: Kayexalate PO 45 grams PO once Route: PO; kc6 17:22 Follow up: Response: No adverse reaction kc6 Disposition Summary: 08/24/23 15:18 Hospitalization Ordered Notes: Hospitalization Status: Inpatient Admission maribell Provider: Edison Drake cha Condition: Fair maribell Problem: new maribell Symptoms: have improved maribell Bed/Room Type: Standard maribell Location: Telemetry/MedSurg (Inpatient)(08/24/23 21:00) cg Room Assignment: [facility](08/24/23 21:00) Diagnosis - Sciatica, right side maribell - Low back pain maribell - Acute kidney failure, unspecified maribell - Elevated white blood cell count maribell - Hyperkalemia maribell - Abnormal electrocardiogram [ECG] [EKG] - peaked t waves maribell - UTI/ Urinary tract infection, site not specified maribell Forms: - Medication Reconciliation Form maribell - SBAR form maribell - Leadership Thank You Letter maribell Signatures: Dispatcher [employer] Dorothy Conner Corey, MD MD cha Garcia, Cindy, RN RN Todd Gatica RN RN Jelly Jones RN RN ap3 Jonathan Cuba RN RN as6 Ann Garcia RN RN trung6 Eva Gilmore rv1 Niya Abraham RN ll1 Corrections: (The following items were deleted from the chart) 16:53 15:18 Telemetry/MedSurg (Inpatient) maribell bd 16:53 15:18 maribell bd 17:07 16:53 BR ER HOLD bd as6 17:07 16:53 ERHOLD- bd as6 17:08 17:07 232 as6 ja1 17:09 17:08 ja1 as6 17:33 17:07 Telemetry/MedSurg (Inpatient) as6 ja1 17:33 17:09 232 as6 ja1 17:33 17:33 ja1 ja1 17:34 17:33 ja1 ja1 19:18 17:33 [facility] ER HOLD ja1 rv1 19:18 17:34 ERHOLD- ja1 rv1 19:24 19:18 406 rv1 rv1 19:31 19:18 Telemetry/MedSurg (observation) rv1 cg 19:31 19:24 rv1 cg 21:00 19:31 [facility] ER HOLD cg cg 21:00 19:31 ERHOLD- cg cg
--- NOTE | 2023-08-24 15:18 | ER ---
Nurse's Notes [facility] Name: Mairela Hayes Age: 58 yrs Sex: Female : 1965 Arrival Date: 08/24/2023 Time: 12:24 Bed 11 Private MD: Kevin Rodriguez Diagnosis: Sciatica, right side;Low back pain;Acute kidney failure, unspecified;Elevated white blood cell count;Hyperkalemia;Abnormal electrocardiogram [ECG] [EKG]-peaked t waves;UTI/ Urinary tract infection, site not specified Presentation: 08/24 12:28 Chief complaint: Patient states: she injured her back last week when holding her ap3 grandson. patient states the pain goes into her right thigh and her right leg "doesn't feel right". Patient currently rates her pain as a 6/10 on the pain scale. Coronavirus screen: At this time, the client does not indicate any symptoms associated with coronavirus-19. Ebola Screen: No symptoms or risks identified at this time. Initial Sepsis Screen: Does the patient meet any 2 criteria? No. Patient's initial sepsis screen is negative. Does the patient have a suspected source of infection? No. Patient's initial sepsis screen is negative. Risk Assessment: Do you want to hurt yourself or someone else? Patient reports no desire to harm self or others. Onset of symptoms is unknown. 12:28 Method Of Arrival: Ambulatory ap3 12:28 Acuity: JUAN 4 ap3 Triage Assessment: 12:30 General: Appears uncomfortable, Behavior is calm, cooperative, appropriate for age. ap3 Pain: Complains of pain in back and right leg Pain currently is 6 out of 10 on a pain scale. Neuro: Level of Consciousness is awake, alert, obeys commands, Oriented to person, place, time, situation, Appropriate for age. Cardiovascular: Patient's skin is warm and dry. Respiratory: Airway is patent Respiratory effort is even, unlabored, Respiratory pattern is regular, symmetrical. Musculoskeletal: Range of motion: intact in all extremities. Historical: - Allergies: 12:29 Phenergan; ap3 - PMHx: 12:29 Alzheimers; Alzheimer's disease; Chronic pain; Hypertension; ap3 - Immunization history:: Client reports receiving the 2nd dose of the Covid vaccine, Flu vaccine is not up to date. - Social history:: Smoking status: Smoking status: Patient reports the use of cigarette tobacco products, smokes one-half pack cigarettes per day. Screenin:30 Abuse screen: Denies threats or abuse. Nutritional screening: No deficits noted. ap3 Tuberculosis screening: No symptoms or risk factors identified. 13:09 [facility] ED Fall Risk Assessment (Adult) History of falling in the last 3 months, kc6 including since admission No falls in past 3 months (0 pts) Confusion or Disorientation No (0 pts) Intoxicated or Sedated No (0 pts) Impaired Gait No (0 pts) Mobility Assist Device Used No (0 pt) Altered Elimination No (0 pt) Score/Fall Risk Level 0 - 2 = Low Risk. Assessment: 13:10 General: Appears in no apparent distress. uncomfortable, well groomed, well developed, kc6 Behavior is calm, cooperative, appropriate for age. Pain: Complains of pain in right leg and back. Neuro: Level of Consciousness is awake, alert, obeys commands, Oriented to person, place, time, situation, Appropriate for age. Cardiovascular: Capillary refill < 3 seconds. Respiratory: Airway is patent Trachea midline Respiratory effort is even, unlabored, Respiratory pattern is regular, symmetrical. GI: No signs and/or symptoms were reported involving the gastrointestinal system. : No signs and/or symptoms were reported regarding the genitourinary system. EENT: No signs and/or symptoms were reported regarding the EENT system. Derm: No signs and/or symptoms reported regarding the dermatologic system. Skin is intact, is healthy with good turgor, Skin is pink, warm \\T\\ dry. Musculoskeletal: No signs and/or symptoms reported regarding the musculoskeletal system. Circulation, motion, and sensation intact. Capillary refill < 3 seconds, Range of motion: intact in all extremities. 14:10 Reassessment: Patient appears in no apparent distress at this time. No changes from kc6 previously documented assessment. Patient and/or family updated on plan of care and expected duration. Pain level reassessed. Patient is alert, oriented x 3, equal unlabored respirations, skin warm/dry/pink. 15:10 Reassessment: Patient appears in no apparent distress at this time. No changes from kc6 previously documented assessment. Patient and/or family updated on plan of care and expected duration. Pain level reassessed. Patient is alert, oriented x 3, equal unlabored respirations, skin warm/dry/pink. 16:10 Reassessment: Patient appears in no apparent distress at this time. No changes from kc6 previously documented assessment. Patient and/or family updated on plan of care and expected duration. Pain level reassessed. Patient is alert, oriented x 3, equal unlabored respirations, skin warm/dry/pink. 17:20 Reassessment: Patient appears in no apparent distress at this time. No changes from kc6 previously documented assessment. Patient and/or family updated on plan of care and expected duration. Pain level reassessed. Patient is alert, oriented x 3, equal unlabored respirations, skin warm/dry/pink. 17:25 Reassessment: attempted to call report to 2nd floor. nurse unassigned at this time. kc6 Vital Signs: 12:28 BP 114 / 64; Pulse 76; Resp 17; Temp 97.4; Pulse Ox 100% ; Weight 99.79 kg; Height 5 ap3 ft. 4 in. ; Pain 6/10; 12:28 Body Mass Index 37.76 (99.79 kg, 162.56 cm) ap3 12:28 Pain Scale: Adult ap3 Daljit Coma Score: 15:05 Eye Response: spontaneous(4). Motor Response: obeys commands(6). Verbal Response: maribell oriented(5). Total: 15. ED Course: 12:25 Patient arrived in ED. rg4 12:25 Kevin Rodriguez MD is Private Physician. rg4 12:29 Triage completed. ap3 12:31 Arm band placed on right wrist. ap3 12:39 Mohan Benito MD is Attending Physician. maribell 13:08 Ann Garcia, VERNON is Primary Nurse. kc6 13:09 Patient has correct armband on for positive identification. Bed in low position. Call kc6 light in reach. Side rails up X 1. Client placed on continuous cardiac and pulse oximetry monitoring. NIBP monitoring applied. 13:09 Inserted saline lock: 20 gauge in right antecubital area, using aseptic technique. kc6 Blood collected. Patient maintains SpO2 saturation greater than 95% on room air. 13:42 CT Lumbar Spine Wo Con In Process Unspecified. EDMS 15:17 Edison Drake is Hospitalizing Provider. [facility] 15:30 Inserted saline lock: 20 gauge in right wrist, using aseptic technique. Blood collected.kc6 16:35 US Rp Exam Complete In Process Unspecified. EDMS 20:04 No provider procedures requiring assistance completed. Patient admitted, IV remains in bp place. Administered Medications: 13:09 Drug: NS 0.9% IV 500 ml IV at bolus once Route: IV; Rate: bolus; Site: right kc6 antecubital; 17:20 Follow up: Response: No adverse reaction; IV Status: Completed infusion; IV Intake: kc6 500ml 13:09 Drug: Ketorolac IVP 30 mg IVP once Route: IVP; Site: right antecubital; kc6 17:21 Follow up: Response: No adverse reaction; Pain is decreased kc6 13:09 Drug: Decadron - Dexamethasone IVP 10 mg IVP once Route: IVP; Site: right antecubital; kc6 17:21 Follow up: Response: No adverse reaction kc6 13:09 Drug: fentaNYL (PF) IVP 25 mcg IVP once Route: IVP; Site: right antecubital; kc6 17:21 Follow up: Response: No adverse reaction; Pain is decreased; RASS: Alert and Calm (0) kc6 13:09 Drug: Ondansetron IVP 4 mg IVP once; over 2 minutes Route: IVP; Site: right antecubital;kc6 17:21 Follow up: Response: No adverse reaction kc6 13:09 Drug: Diazepam PO 5 mg PO once Route: PO; kc6 17:21 Follow up: Response: No adverse reaction; Pain is decreased; RASS: Alert and Calm (0) kc6 14:35 Not Given (Other Intervention Used): fentanyl (pf)25 mcg IVP once kc6 15:30 Drug: NS 0.9% IV 1000 ml IV at 125 ml/hr continuous Route: IV; Rate: 125 ml/hr; Site: kc6 right antecubital; 17:22 Follow up: Response: No adverse reaction; IV Status: Infusion continued upon admission kc6 15:30 Drug: NS 0.9% IV 500 ml IV at bolus once Route: IV; Rate: bolus; Site: right kc6 antecubital; 17:22 Follow up: Response: No adverse reaction; IV Status: Completed infusion; IV Intake: kc6 500ml 15:30 Drug: Albuterol Inhalation 5 mg Inhalation once Route: Inhalation; kc6 17:22 Follow up: Response: No adverse reaction kc6 15:30 Drug: Rocephin IV 1 grams IV at per protocol once; Given slow IV push per pharmacy kc6 instructions Route: IV; Rate: per protocol; Site: right antecubital; 17:23 Follow up: Response: No adverse reaction; IV Status: Completed infusion; IV Intake: [id number] 15:30 Drug: Calcium Gluconate IVPB 1 grams IVPB once over 20 mins; (mix in NS 100 mL) Route: kc6 IVPB; Infused Over: 20 mins; Site: right antecubital; 17:23 Follow up: Response: No adverse reaction; IV Status: Completed infusion; IV Intake: kc6 100ml 15:30 Drug: D10 in Water IVP 250 ml IVP once Route: IVP; Site: right antecubital; kc6 17:23 Follow up: Response: No adverse reaction kc6 15:30 Drug: Insulin Regular Human IVP 10 units IVP once {Co-Signature: ll1 (Niya Abraham RN).} Route: IVP; Site: right wrist; 17:23 Follow up: Response: No adverse reaction kc6 15:45 Drug: Kayexalate PO 45 grams PO once Route: PO; kc6 17:22 Follow up: Response: No adverse reaction kc6 Intake: 17:20 IV: 500ml; Total: 500ml. kc6 17:22 IV: 500ml; Total: 1000ml. kc6 17:23 IV: 50ml; Total: 1050ml. kc6 17:23 IV: 100ml; Total: 1150ml. 6 Outcome: 15:18 Decision to Hospitalize by Provider. maribell 21:10 Condition: stable bp 21:10 Instructed on the need for admit, 21:16 Admitted to Tele accompanied by tech, via wheelchair, room 406, with chart, Report bp called to MARINA JUNIOR 21:51 Patient left the ED. pf1 Signatures: Dispatcher [employer] Mohan Alvarez MD MD cha Garcia, Rubi rg4 Manolo Whitmore RN RN Jelly Goins RN RN robert3 Ann Garcia RN RN kc6 Inessa Rob RN RN pf1 Niya Abraham RN ll1
[2023-08-24] MEDS ORDERED: INSULIN REGULAR (HUMAN) 100 UNIT/ML ONE (15:19)
[2023-08-24] MEDS ORDERED: D10W 250 ML IV ONE (15:20)
[2023-08-24] MEDS ORDERED: CALCIUM GLUCONATE 1 GM IVPB 1 GM/50 ML BAG IV ONE (15:20)
--- NOTE | 2023-08-24 15:45 | P.HP ---
Certification for Inpatient Patient admitted to: Observation With expected LOS: <2 Midnights Practitioner: I am a practitioner with admitting privileges, knowledge of patient current condition, hospital course, and medical plan of care. Services: Services provided to patient in accordance with Admission requirements found in Title 42 Section 412.3 of the Code of Federal Regulations Patient History Date of Service: 08/24/23 Reason for admission: Hyperkalemia, leukocytosis, SARAH History of Present Illness: Mariela Hayes is a 58-year-old female with past medical history of Alzheimer's, chronic pain, hypertension who presented to the ED with complaints of back pain and right leg pain. She reports falling a few months ago and MRI reported "Mild degenerative disc disease at L4-5". A few days ago she picking up a child throwing a tantrum at which point caused her back to hurt and overnight her right thigh started to burn with intense pain. Of note she has nausea daily and taking Zofran, she has early onset Alzheimer's, and has a mass on her left kidney found on her previous admission. She reports always having blood in her urine on the UA and Dr. William is following her. While in the ED she was given calcium gluconate, lactulose, Kayexalate, insulin, Rocephin, Toradol, Decadron Initial vitals BP 114 / 64; Pulse 76; Resp 17; Temp 97.4; Pulse Ox 100%. Laboratory evaluation WBC 20.1, BUN/creatinine 45/1.48, GFR 41, potassium 6.0, serum glucose 126. CT lumbar spine without contrast reports "Moderate diffuse osteopenia is present. No acute compression fracture or other acute abnormality seen. Moderate spondylosis L4-5 is present with evidence of central canal narrowing as well as bilateral foraminal narrowing." Mariela will be admitted to hospitalist service for further evaluation and treatment of hyperkalemia and SARAH vs CKD. Allergies promethazine HCl [From Phenergan] Allergy (Intermediate, Verified 10/13/21 13:36) Unknown Home Medications: Carvedilol [Coreg] 25 mg PO BID 04/20/20 Donepezil HCl [Aricept] 10 mg PO BID 04/20/20 Duloxetine HCl [Cymbalta] 60 mg PO BEDTIME 04/20/20 Hydralazine HCl [Apresoline] 50 mg PO BID 04/20/20 Hydrocodone 10/APAP 325 [[place] 10/325*] 1 tab PO QID 04/20/20 Lisinopril [Zestril] 20 mg PO BID 04/20/20 Memantine HCl [Namenda*] 10 mg PO BID 04/20/20 Zolpidem Tartrate [Ambien*] 10 mg PO BEDTIME 04/20/20 Smz./Tmp. [Bactrim Ds 800 MG/160 MG] 1 tab PO BID 10/13/21 - Past Medical/Surgical History Diabetic: No -: Hypertension -: Alzheimer's/dementia -: RSD -: Tobacco abuse -: Spinal cord stimulator -: Tonsillectomy -: Hernia repair -: Foot surgery Psychosocial/ Personal History: Patient currently lives at home with family. - Social History Alcohol use: No CD- Drugs: No Caffeine use: No Review of Systems Musculoskeletal: Back Pain, Leg Pain (Right Lower extremity pain) Physical Examination - Physical Exam General: Alert, In no apparent distress, Oriented x3 HEENT: Atraumatic, Normocephalic, PERRLA Neck: Supple, 2+ carotid pulse no bruit, JVD not distended Respiratory: Clear to auscultation bilaterally, Normal air movement Cardiovascular: No edema, Normal pulses, Regular rate/rhythm, Normal S1 S2 Capillary refill: <2 Seconds Gastrointestinal: Normal bowel sounds, Soft and benign, Non-distended, Other (obese) Musculoskeletal: No clubbing, No swelling, No contractures, No erythema Integumentary: No rashes, No breakdown, No significant lesion, No tenderness/swelling Neurological: Normal speech, Normal strength at 5/5 x4 extr, Normal tone - Studies Laboratory Data (last 24 hrs) 08/24/23 08/24/23 13:06 13:06 WBC 20.10 H Hgb 12.0 Hct 35.4 L Plt Count 368 Sodium 134 L Potassium 6.0 H BUN 45 H Creatinine 1.48 H Glucose 126 H Total Bilirubin 0.3 AST 9 L ALT 22 Alkaline Phosphatase 67 Assessment and Plan - Plan Assessment and plan Hyperkalemia Potassium 6.0 Given in the ED calcium gluconate, lactulose, Kayexalate, and insulin Repeat BMP tonight Monitor in a.m. labs SARAH versus CKD Left Kidney mass UTI (POA) Dr. Johnston Consulted BUN/creatinine 45/1.48, GFR 41 Renal ultrasound results pending UA positive for blood, RBC 5-10, leukocyte Estrace 25 Rocephin given in the ED, will continue Hyperglycemia Serum glucose 126 Monitor in a.m. lab A1C pending Leukocytosis WBC 20.1 Blood cultures pending Osteopenia Moderate spondylosis L4-L5 Right lower extremity pain CT lumbar spine reports "Moderate spondylosis L4-L5 with evidence of a central canal narrowing as well as bilateral foraminal narrowing" Consult Dr. Fernandes, recommends gabapentin 100 twice daily Toradol, Decadron given in the ED PT consulted Hx HTN Alzheimer's disease Supportive care Restart home medication when available Tobaccos abuse 1/2 pack per day Cessation education provided DVT PPx heparin Full code LOS 2 to 3 days Discharge Plan: Home Plan to discharge in: 48 Hours - Advance Directives Does patient have a Living Will: No Does patient have a Durable POA for Healthcare: No
--- NOTE | 2023-08-24 16:46 | RAD REPORT ---
EXAM DESCRIPTION: US - Renal Ultrasound-Complete - 08/24/2023 4:39 pm CLINICAL HISTORY: PAIN Flank pain COMPARISON: <Comparisons> FINDINGS: Both kidneys are normal in size, shape and echotexture. The right kidney measures 10.2 x 5.1 x 5.6 cm.. No hydronephrosis, focal mass or perinephric fluid. The left kidney measures 11.2 x 5.6 x 5.2 cm. Small benign cyst. No hydronephrosis, focal mass or per inephric fluid. The urinary bladder is incompletely distended without gross abnormality seen. IMPRESSION: Unremarkable renal sonogram.
[2023-08-24] MEDS: LACTULOSE 20 GM/30 ML UCUP PO ONE (16:48)
[2023-08-24] MEDS: HEPARIN 5000 UNIT/ML 1 ML VIAL SQ SCH (17:00)
[2023-08-24] MEDS ORDERED: SOD POLYSTYREN SUL 15 GM/60 ML UCUP PO ONE (17:15)
[2023-08-24] MEDS: SOD POLYSTYREN SUL 15 GM/60 ML UCUP PO ONE (18:00)
[2023-08-24] MEDS ORDERED: MORPHINE 2 MG/ML SYR ONE (18:13)
[2023-08-24] MEDS ORDERED: HEPARIN 5000 UNIT/ML 1 ML VIAL ONE (18:13)
[2023-08-24] MEDS ORDERED: LACTULOSE 20 GM/30 ML UCUP ONE (18:14)
[2023-08-24] MEDS: MORPHINE 2 MG/ML SYR IV PRN (18:22)
[2023-08-24 18:29] LABS: Blood Morphology Comment NOT SEEN (NOT SEEN); Platelet Estimate ADEQ; White Blood Cell Scan OK (OK)
[2023-08-24] MEDS: NA CHLORIDE 0.9% 1,000 ML IV SCH (19:00)
[2023-08-24 19:43] LABS: Absolute Lymphocytes (CBC) 1.6 K/uL (0.7-4.9); Hematocrit 36.1 % (36.0-45.0); Lymphocytes % 8.6 % (15.3-44.8); MCV 94.3 fL (80-100); MPV 6.9 fL (7.6-11.3); Platelets 361 thou/uL (152-406); RBC Red Blood Cell Count 3.83 M/uL (3.86-4.86)
[2023-08-24 20:05] LABS: Albumin 3.3 g/dL (3.4-5.0); Bilirubin Total 0.3 mg/dL (0.2-1.0); Potassium 5.1 mEq/L (3.5-5.1); Protein, Total 7.4 g/dL (6.4-8.2)
[2023-08-24 20:14] VITALS: BMI 37.8
[2023-08-24] MEDS: GABAPENTIN 100 MG CAP PO SCH (22:10)
[2023-08-24] MEDS: HYDROCODONE/APAP 7.5/325 MG TAB PO PRN (22:10)
[2023-08-24 22:30] VITALS: O2SAT 97
[2023-08-24] MEDS: HOME MED 1 EA UNK (Duloxetine Hcl [Cymbalta] 60 MG Capsule.Dr) PO SCH (23:30)
[2023-08-24] MEDS: ZOLPIDEM TARTRATE 10 MG TABLET PO SCH (23:30)
[2023-08-24] MEDS: DULOXETINE 30 MG CAP PO SCH (23:41)
[2023-08-25 05:39] LABS: Absolute Lymphocytes (CBC) 1.4 K/uL (0.7-4.9); Hematocrit 33.8 % (36.0-45.0); Lymphocytes % 9.6 % (15.3-44.8); MCV 94.7 fL (80-100); Platelets 328 thou/uL (152-406); RBC Red Blood Cell Count 3.57 M/uL (3.86-4.86)
[2023-08-25 05:51] VITALS: TEMP 97.1
[2023-08-25 05:54] LABS: Magnesium 2.1 mg/dL (1.6-2.4); Potassium 5.3 mEq/L (3.5-5.1)
--- NOTE | 2023-08-25 07:51 | P.PN ---
Date of Service: 08/25/23 Subjective ROS 10 point ROS as noted above, otherwise negative Physical Exam General: Alert, In no apparent distress, Oriented x3 HEENT: Atraumatic, Normocephalic, PERRLA Neck: Supple, 2+ carotid pulse no bruit, JVD not distended Respiratory: Clear to auscultation bilaterally, Normal air movement Cardiovascular: No edema, Normal pulses, Regular rate/rhythm, Normal S1 S2 Capillary refill: <2 Seconds Gastrointestinal: Normal bowel sounds, Soft and benign, Non-distended, Other (obese) Musculoskeletal: No clubbing, No swelling, No contractures, No erythema Integumentary: No rashes, No breakdown, No significant lesion, No tenderness/swelling Neurological: Normal speech, Normal strength at 5/5 x4 extr, Normal tone Vitals Reviewed Problem list Hyperkalemia SARAH versus CKD Left Kidney mass UTI (POA) Hyperglycemia Leukocytosis Osteopenia Moderate spondylosis L4-L5 Right lower extremity pain Hx HTN Alzheimer's disease Tobaccos abuse Assessment and Plan Hyperkalemia Potassium 6.0, improved to 5.3 Given in the ED calcium gluconate, lactulose, Kayexalate, and insulin Repeat BMP tonight Monitor in a.m. labs SARAH versus CKD Left Kidney mass UTI (POA) Dr. Johnston Consulted BUN/creatinine 45/1.48, GFR 41 Renal ultrasound results pending UA positive for blood, RBC 5-10, leukocyte Estrace 25 Rocephin given in the ED, will continue Kidney ultrasound report "Unremarkable renal sonogram. Left kidney showing a small benign cyst." Hyperglycemia Serum glucose 126 Monitor in a.m. lab A1C pending Leukocytosis WBC 20.1, WBC 15.1 improved Blood cultures pending Osteopenia Moderate spondylosis L4-L5 Right lower extremity pain CT lumbar spine reports "Moderate spondylosis L4-L5 with evidence of a central canal narrowing as well as bilateral foraminal narrowing" Consult Dr. Fernandes, recommends gabapentin 100 twice daily Toradol, Decadron given in the ED PT consulted Hx HTN Early onset Alzheimer's disease Supportive care Restart home medication when available Tobaccos abuse 1/2 pack per day Cessation education provided DVT PPx heparin Full code LOS 2 to 3 days Discharge Plan: Home Plan to discharge in: 48 Hours
[2023-08-25] MEDS ORDERED: lisinopriL 20 MG TAB PO SCH (09:00)
[2023-08-25] MEDS: carvediloL 25 MG TAB PO SCH (09:01)
[2023-08-25] MEDS: DONEPEZIL HCL 5 MG TAB PO SCH (09:01)
[2023-08-25] MEDS: MEMANTINE HCL 10 MG TABLET PO SCH (09:01)
[2023-08-25] MEDS: AMLODIPINE 5 MG TAB PO SCH (09:02)
[2023-08-25] MEDS: HYDROCODONE/APAP 10/325 TAB PO SCH (09:02)
[2023-08-25] MEDS: CEFTRIAXONE 1,000 MG in NA CHLORIDE 0.9% 50 ML IVPB SCH (09:02)
[2023-08-25 09:19] VITALS: BP 114/66
--- NOTE | 2023-08-25 12:00 | CON ---
Date of Consultation: 08/25/2023 Reason For Consultation: Hyperkalemia, elevated BUN and creatinine. History Of Present Illness: This is a pleasant 58-year-old female with significant past medical history of low back pain. The patient came to the hospital complaining of nausea and vomiting and lower back pain radiating to the legs. The patient found to have hyperkalemia with potassium 6 and low GFR down to 41 with normal kidney function back in May. For that reason being admitted. The patient was started on hydration. Kidney function started improving. The patient apparently taking Aleve with Motrin 2 tablets every 4 hours for the last few days. The patient denied any fever, any chills. Past Medical History: Includes: 1. Low back pain. 2. Hypertension. 3. Hyperlipidemia. 4. Spinal stenosis. Past Surgical History: Includes tonsillectomy, hernia repair, foot surgery, spinal stimulator placement. Home Medications: Include carvedilol, hydralazine, hydrocodone, spironolactone, lisinopril, Ambien, and Bactrim. Review of Systems: Head and Neck: No red eye. No ear pain. GI: Has nausea, vomiting. : No polyuria, no dysuria, no hematuria. Learning Support Teacher: No vaginal discharge. Respiratory: No shortness of breath. Cardiovascular: No chest pain. Endocrine: No polydipsia. Skin: No rash. Neuro: Has low back pain. Musculoskeletal: Leg pain. Social History: Denied smoking, denied drinking, denied drug abuse. Physical Examination: Vital Signs: When I saw the patient, blood pressure 114/66, pulse of 78, afebrile. Chest: Clear to auscultation. Heart: S1, S2, regular. Abdomen: Soft, nontender. Extremities: No edema. Neurologic: Alert. No focality. Labs: Hemoglobin 11.3. Sodium 139, potassium 5.3, bicarb 24, BUN 38, creatinine 1, GFR of 59. Calcium 8.8, phosphorus 3, magnesium 2.3. Renal ultrasound shows normal size kidney, no hydronephrosis, 10.2/11.2. Assessment And Plan: 1. Acute kidney injury secondary to prerenal, complicated with hyperkalemia, superimposed with nonsteroidal use and GI loss, recovered, normal volume currently. I will discontinue IV fluid. The patient okay from the Renal standpoint for discharge planning. 2. Hyperkalemia secondary to renal failure superimposed with spironolactone and lisinopril, recovered, resolved. Reinforced for the patient for low- potassium diet. Avoid spironolactone, lisinopril. We will follow up the patient in 2-3 weeks. 3. Low back pain. As by primary. Time spent examining the patient [id number] reviewing that the lab and the radiology placing orders or discussing the case with the patient discussing the case with the wallpaper remover steam including hospitalist and nursing staff more than 65 minutes GERI Voice ID: [id number] Report ID: [id number] MICHAEL
--- NOTE | 2023-08-25 16:42 | EKG ---
Test Date: 2023-08-24 Test Time: 15:07:31 Psychiatric Nurse: YANNI MEASUREMENT RESULTS: Intervals: Rate: 70 DC: 164 QRSD: 98 QT: 362 QTc: 390 Kimper: P: 67 DC: 164 QRS: 82 T: 67 INTERPRETIVE STATEMENTS: Normal sinus rhythm Normal ECG Compared to ECG 04/19/2020 22:03:15 No significant changes Electronically Signed On 08-25-23 16:41:11 SWING SAW OPERATOR by Arpit Abdi
--- NOTE | 2023-08-25 17:13 | P.DS ---
Admission Date: 08/24/23 Discharge Date: 08/25/23 Disposition: ROUTINE DISCHARGE Discharge Condition: GOOD Reason for Admission: Hyperkalemia, leukocytosis, SARAH Brief History of Present Illness: Diagnosis Hyperkalemia SARAH versus CKD Left kidney mass UTI (POA) Hyperglycemia Leukocytosis Osteopenia Moderate spondylosis L4-L5 Right lower extremity pain Hx HTN Alzheimer's disease Tobacco abuse HPI 08/24/23 Mariela Hayes is a 58-year-old female with past medical history of Alzheimer's, chronic pain, hypertension who presented to the ED with complaints of back pain and right leg pain. She reports falling a few months ago and MRI reported "Mild degenerative disc disease at L4-5". A few days ago she picking up a child throwing a tantrum at which point caused her back to hurt and overnight her right thigh started to burn with intense pain. Of note she has nausea daily and taking Zofran, she has early onset Alzheimer's, and has a mass on her left kidney found on her previous admission. She reports always having blood in her urine on the UA and Dr. William is following her. While in the ED she was given calcium gluconate, lactulose, Kayexalate, insulin, Rocephin, Toradol, Decadron Initial vitals BP 114 / 64; Pulse 76; Resp 17; Temp 97.4; Pulse Ox 100%. Laboratory evaluation WBC 20.1, BUN/creatinine 45/1.48, GFR 41, potassium 6.0, serum glucose 126. CT lumbar spine without contrast reports "Moderate diffuse osteopenia is present. No acute compression fracture or other acute abnormality seen. Moderate spondylosis L4-5 is present with evidence of central canal narrowing as well as bilateral foraminal narrowing." Mariela will be admitted to hospitalist service for further evaluation and treatment of hyperkalemia and SARAH vs CKD. Hospital Course: Mariela Hayes is a pleasant 58 year old female with a past medical history significant for history of Alzheimer's, chronic pain, hypertension who was admitted to the [facility] on 08/24/23 for Hyperkalemia and SARAH vs CKD. Mariela Hutchison presented to the ED with complaints of falling and hurting her back which increased pain to her right leg. While in the ED she was found to have elevated potassium at 6.0 which has resolved. Acute kidney injury was revealed, Dr. Linton was consulted and has cleared for discharge with follow- up in 2 to 3 weeks. WBCs has considerably declined, likely reactive to inflammation in her back. Gabapentin is being prescribed for pain management for your back injury. Follow-up with neurology or orthopedic medicare contact specialist for continued management of back pain and injury. Avoid lisinopril and Aldactone for now, requests a replacement for your blood pressure control from your PCP. On 08/25/23, Mariela was seen on morning rounds and deemed medically stable for discharge. Mariela was discharged with instructions to schedule follow-up appointments with PCP, Dr. Linton, and Neurology/orthopedic spine. Mariela was provided prescription for Gabapentin. The patient and family members were given the opportunity to ask questions and reported no further questions. Furthermore, all questions were answered to the best of my ability. A copy of this discharge summary will be sent to the above providers to facilitate continuity of care. Today, I personally spent 50 minutes with Mariela, of which greater than 50% of the time was spent in patient education, counseling, and coordination of care as described above. Physical Exam General: AAOx3, NAD HEENT: Atraumatic, Normocephalic, PERRLA Neck: Supple, 2+ carotid pulse no bruit, JVD not distended Respiratory: Clear to auscultation bilaterally, Normal air movement Cardiovascular: No edema, Normal pulses, RRR, Normal S1 S2, no murmur appreciated Capillary refill: <2 Seconds Gastrointestinal: Normal bowel sounds, Soft and benign on palpation, NT/ND, Other (obese) Musculoskeletal: No clubbing, No swelling, No contractures, No erythema Integumentary: No rashes, No breakdown, No significant lesion, No tenderness/swelling Neurological: Normal speech, Normal strength at 5/5 x4 extr, Normal tone Vital Signs/Physical Exam: Temp Pulse Resp BP Pulse Ox 97.1 F 99 H 18 114/66 96 08/25/23 04:00 08/25/23 04:00 08/25/23 05:13 08/25/23 09:02 08/25/23 05:13 Laboratory Data at Discharge: WBC 15.10 thou/uL (4.3-10.9) H 08/25/23 05:18 Hgb 11.3 g/dL (12.0-15.0) L 08/25/23 05:18 Hct 33.8 % (36.0-45.0) L 08/25/23 05:18 Plt Count 328 thou/uL (152-406) 08/25/23 05:18 Sodium 139 mEq/L (136-145) D 08/25/23 05:18 Potassium 5.3 mEq/L (3.5-5.1) H 08/25/23 05:18 BUN 38 mg/dL (7-18) H 08/25/23 05:18 Creatinine 1.09 mg/dL (0.55-1.02) H 08/25/23 05:18 Glucose 150 mg/dL (74-106) H 08/25/23 05:18 Phosphorus 3.0 mg/dL (2.5-4.9) 08/25/23 05:18 Magnesium 2.1 mg/dL (1.6-2.4) 08/25/23 05:18 Total Bilirubin 0.3 mg/dL (0.2-1.0) 08/24/23 19:35 AST 10 U/L (15-37) L 08/24/23 19:35 ALT 22 U/L (13-56) 08/24/23 19:35 Alkaline Phosphatase 66 U/L (45-117) 08/24/23 19:35 Home Medications: Carvedilol [Coreg] 12.5 mg PO BID 04/20/20 Donepezil HCl [Aricept] 10 mg PO BID 04/20/20 Duloxetine HCl [Cymbalta] 60 mg PO BEDTIME 04/20/20 Hydrocodone 10/APAP 325 [[place] 10/325*] 1 tab PO QID 04/20/20 Memantine HCl [Namenda*] 10 mg PO BID 04/20/20 Zolpidem Tartrate [Ambien*] 10 mg PO BEDTIME 04/20/20 Amlodipine Besylate [Norvasc] 5 mg PO DAILY 08/24/23 Gabapentin 100 mg PO BID 30 Days #60 cap 08/25/23 Gabapentin [Neurontin*] 100 mg PO BID 30 Days #60 cap 08/25/23 New Medications: Gabapentin 100 mg PO BID 30 Days #60 cap Gabapentin [Neurontin*] 100 mg PO BID 30 Days #60 cap Physician Discharge Instructions: Mariela Hutchison presented to the ED with complaints of falling and hurting her back which increased pain to her right leg. While in the ED she was found to have elevated potassium at 6.0 which has resolved. Acute kidney injury was revealed, Dr. Linton was consulted and has cleared for discharge with follow- up in 2 to 3 weeks. WBCs has considerably declined, likely reactive to inflammation in her back. Gabapentin is being prescribed for pain management for your back injury. Follow-up with neurology or orthopedic medicare contact specialist for continued management of back pain and injury. Avoid lisinopril and Aldactone for now, requests a replacement for your blood pressure control from your PCP. 1. Please call and schedule a follow-up appointment with your PCP in 3-5 days - Please follow-up with your PCP for medication refills/adjustments, stop lisinopril and need to replace with a different antihypertensive 2. Please call and schedule a follow-up appointment with Dr. Linton in 2-3 w eeks for continued kidney management 3.Follow-up with neurology/orthospine for management of back and leg pain 4. Regular low potassium diet 5. Activity as tolerated 6. Return to ED if symptoms worsen Avoid lisinopril and aldactone due to potassium increase New medication Gabapentin 100 mg BID Diet: Regular Followup: Mia Linton MD [ACTIVE - CAN ADMIT] - (F/U in 2-3 weeks) Yash Fernandes MD [ASSOCIATE-ACTIVE - CAN ADMIT] - Kevin Rodriguez MD [Primary Care Provider] -
== END 2023-08-25 15:30 | disposition home or self-care (01) ==
LOC: ER 12:24 → ERHOLD 16:30 → 4TH 21:05
PROVIDERS: ADMIT Internal Medicine; ATTEND Internal Medicine
DX: N17.9 Acute kidney failure, unspecified (principal); G89.29 Other chronic pain; I10 Essential (primary) hypertension; G30.0 Alzheimer's disease with early onset; F02.80 Dementia in other diseases classified elsewhere, unspecified severity, without behavioral disturbance, psychotic disturbance, mood disturbance, and anxiety; M51.36 Other intervertebral disc degeneration, lumbar region; R11.0 Nausea; R31.9 Hematuria, unspecified; N28.89 Other specified disorders of kidney and ureter; N39.0 Urinary tract infection, site not specified; R73.9 Hyperglycemia, unspecified; M85.80 Other specified disorders of bone density and structure, unspecified site; M79.604 Pain in right leg; F17.210 Nicotine dependence, cigarettes, uncomplicated; Z71.6 Tobacco abuse counseling
CPT/HCPCS: 93005; 87040 ×2; 85025 ×3; 81001; 80048; 36415; 83735; 84100; 82947 ×2; 83605; 83036; 80053 ×2; 72131; 76770; 97161; J1815; J1644; J0612; J7613; J3010; J1100; J2270 ×2; J2405; J7040 ×2; J7030 ×3; J0696 ×2; G0378

== ENCOUNTER 2025-03-08 07:17 | Day surgery (SDC) | payer OTHER ==
[2025-03-08] MEDS: Ringers Lactate 1,000 ML IV ONE (08:00)
[2025-03-08] MEDS ORDERED: FENTANYL CITR 100 MCG/2 ML ONE (09:11)
[2025-03-08] MEDS ORDERED: MIDAZOLAM HCL 2 MG/2 ML INJ ONE (09:11)
[2025-03-08] MEDS ORDERED: ONDANSETRON 4 MG/2 ML VIAL ONE (09:11)
[2025-03-08] MEDS ORDERED: LIDOCAINE 1% MPF 5 ML VIAL ONE (09:11)
[2025-03-08] MEDS ORDERED: ROCURONIUM 50 MG/5 ML VIAL IV ONE (09:11)
[2025-03-08] MEDS ORDERED: METHYLENE BLUE 1% 10 ML VIAL ONE (09:14)
[2025-03-08] MEDS ORDERED: HYDRALAZINE HCL 20 MG/ML VIAL ONE (10:42)
[2025-03-08] MEDS: CEFAZOLIN SODIUM 2 GM/VIAL ONE (10:45)
[2025-03-08] MEDS ORDERED: CEFAZOLIN SODIUM 1 GM/VIAL ONE (10:46)
--- NOTE | 2025-03-08 11:07 | P.BOP ---
Preoperative diagnosis: infected pilonidal cyst Postoperative diagnosis: same Primary procedure: Wide excision of infected pilonidal cyst Secondary procedure: [id number] Estimated blood loss: <10cc Specimen: cyst , culture Findings: as above Anesthesia: General Complications: None Drain(s): Other (iodoform 07/22") Transferred to: Recovery Room Condition: Good
[2025-03-08] MEDS ORDERED: NEOSTIGMINE 1 MG/ML -10 ML VIAL ONE (11:10)
[2025-03-08] MEDS ORDERED: GLYCOPYRROLATE 0.2 MG/ML SYR ONE (11:10)
[2025-03-08] MEDS ORDERED: SUGAMMADEX SODIUM 200 MG/2 ML VIAL IV ONE (11:29)
[2025-03-08] MEDS: ONDANSETRON 4 MG/2 ML VIAL ONE (11:34)
[2025-03-08] MEDS: HYDROMORPHONE HCL 1 MG/ML INJ ONE (11:43)
[2025-03-08] MEDS: LABETALOL 20 MG/4ML SYRINGE IV ONE (11:52)
--- NOTE | 2025-03-08 12:22 | DS ---
Diagnosis: Infected pilonidal cyst. Procedure: Wide excision of infected pilonidal cyst. Condition: Stable. Disposition: Home. Activity: As tolerated. No heavy lifting. Discharge Instructions: [facility] at 10:45. She need to re move the gauze in 48 hours and then pack the area with saline daily. We advised her we are going to be giving her hydrocodone for pain control since this is a very painful procedure, but we advised her to be careful to use it properly and same with antibiotics and saline. ARELIS/MARY Voice ID: [id number] Report ID: [id number]
--- NOTE | 2025-03-08 12:22 | OP ---
Date of Procedure: 03/08/2025 Surgeon: Kevin Card MD Preoperative Diagnosis: Infected pilonidal cyst. Postoperative Diagnosis: Infected pilonidal cyst. Procedure: Wide excision of infected pilonidal cyst, 3 x 2 x 2 cm. Estimated Blood Loss: Less than 10 cc. Specimens: Cyst and culture. Findings: Infected pilonidal cyst with abscess. Anesthesia: General plus local. Complications: None. Packing: Iodoform quarter of an inch. Indications: This is a case of a 59-year-old patient, who comes to us with above diagnosis. Fully e xplained the benefits, alternatives, and risks of wide excision of pilonidal cyst, infected, which in clude, but not limited to infection, bleeding, damage to adjacent structures, anesthesia complication , recurrence, MT, and even . She also understands this may not relieve the symptoms. She might need more than one surgical intervention. She understood, signed a consent. Description Of Procedure: The patient was brought to the operating room, placed in supine position. Anesthesia was done without complication. The back area was prepped and draped in sterile fashion. The patient was placed in lateral position with proper protection. Back area was prepped and draped in a sterile fashion. We identified the openings draining at this moment. So, we put the methylene blue to that area and demyelinated the area of concern. Then, after that, we proceeded to open the cavity and we noticed the patient to have an infected pilonidal cyst with purulent discharge. We rem harpreet everything that the tract shows, everything blue. The area was irrigated. Hemostasis was obtai wilda and then the area had to be packed with iodoform quarter of an inch after injecting local anesthe tic. The patient tolerated the procedure well. Sponge count and instrument counts correct. The pat ient was sent to recovery in stable condition. HM/MODL Voice ID: [id number] Report ID: [id number]
[2025-03-08] MEDS: HYDROCODONE/APAP 10/325 TAB ONE (12:45)
[2025-03-08 13:29] VITALS: BP 156/61; TEMP 97.8; O2SAT 97
== END 2025-03-08 13:20 | disposition home or self-care (01) ==
LOC: OR 07:17
PROVIDERS: ATTEND Surgery
PROC: 0JB90ZZ Excision of Buttock Subcutaneous Tissue and Fascia, Open Approach (ICD-10-PCS; principal; 2025-03-08 09:00)
DX: L05.01 Pilonidal cyst with abscess (principal); L08.9 Local infection of the skin and subcutaneous tissue, unspecified
CPT/HCPCS: 87070; 87205; 88304; 87075; 11770; J2704; J2710; J2003; J2250; J3010; J1171; J2405 ×2; J7120; J0690; J0360